=== PATIENT | male | born 1930 | race Caucasian/White ===

== ENCOUNTER 2016-08-26 06:45 | Emergency (ER) | payer MEDICARE ==
[~2016-08-26] VITALS: Ht 167.6 cm; Wt 85.6 kg
[~2016-08-26 06:45] MED LIST: ALBUAER3 INH; ALPR0.25 PO; ASPI1TAB69 PO; CLIN1CAP6 PO; FURO20TA PO; IPRASOL INH; LISI-515 PO; METO100T PO; TAZT240C PO; TRAM50TA PO; ZYRT10CA PO
[2016-08-26 06:53] VITALS: PULSE 98; RESP 18; TEMP 97.6
[2016-08-26 06:57] VITALS: BP 135/92; PULSE 98; RESP 20; TEMP 97.6; O2SAT 95
[2016-08-26 07:05] VITALS: RESP 20; O2SAT 95
[2016-08-26] MEDS ORDERED: methylPREDNISolone SOD SUCC 125 MG/2 ML VIAL IVP ONE (07:15)
[2016-08-26] MEDS ORDERED: CODEINE SULFATE 30 MG TAB PO ONE (07:15)
[2016-08-26] MEDS ORDERED: FUROSEMIDE 100 MG/10 ML VIAL IVP ONE (07:15)
[2016-08-26] MEDS ORDERED: SODIUM CHLORIDE 0.9% FLUSH 5 ML FLUSH IVF PRN (07:15)
[2016-08-26] MEDS: RESP: ALBUTEROL 2.5 MG/IPRATROPIUM 0.5 MG NEB (SCH) INH ×2 (07:19→07:23)
--- NOTE | 2016-08-26 07:25 | PD ---
HPI Chief Complaint: Respiratory Symptoms Time Seen by Provider: 07:03 Travel History International Travel<30 days: No Contact w/Intl Traveler<30days: No Traveled to known affect area: No History of Present Illness HPI This is an 86-year-old male who presents to the emergency department with increasing shortness of breath and productive cough as been going on for 1 week , constant, worsening today causing him not to be able to sleep because his cough is so bad. He has had some subjective fevers and chills. He's had brown and green sputum production. Patient was seen by Dr. birmingham 5 days ago and was prescribed prednisone, Levaquin, nebulizers and hydrocodone cough syrup. He says this morning he felt worse. He does acknowledge that he has missed several physical Lasix doses and he noticed that his legs are swollen. He has a history of congestive heart failure, COPD and atrial fibrillation. He is supposed to take 80 mg Lasix a day. PFSH Past Medical History Hx Anticoagulant Therapy: Yes (81mg asa) Arthritis: Yes Asthma: No Atrial Fibrillation: Yes Autoimmune Disease: No Anxiety: Yes Heart Rhythm Problems: Yes (ATRIAL FIBRILATION) Cancer: No Cardiovascular Problems: Yes (htn on meds) High Cholesterol: Yes Chemotherapy: Yes (COLON CA) Chest Pain: Yes Congestive Heart Failure: Yes COPD: Yes Cerebrovascular Accident: No Diabetes: No Diminished Hearing: Yes Endocrine: No Gastrointestinal Disorders: No GERD: Yes Glaucoma: No Genitourinary: Yes (PROSTATE) Headaches: No Hepatitis: No Hiatal Hernia: No Hypertension: Yes Immune Disorder: No Implanted Vascular Access Dvce: No Kidney Stones: No Musculoskeletal: Yes (ARTHRITIS) Neurologic: No Psychiatric: No Reproductive: No Respiratory: Yes (copd) Immunizations Current: Yes Migraines: No Pneumonia: Yes Radiation Therapy: No Renal Failure: No Seizures: No Sleep Apnea: No Thyroid Disease: No Past Surgical History Abdominal Surgery: Yes (UMBILIC HERNIA 1997, COLON RESECTION 08/04/14) AICD: No Appendectomy: Yes (MAR 2014) Arteriovenous Shunt: No Eye Surgery: Yes (cataracts) Genitourinary Surgery: Yes (COLD THERAPY ON BLADDER, TURP 08/06) Insulin Pump: No Neurologic Surgery: No Pacemaker: No Tonsillectomy: Yes Other Surgery: Yes (TURP) Social History Alcohol Use: No Tobacco Use: No (former) Substance Use: No Allergies-Medications (Allergen,Severity, Reaction): Coded Allergies: No Known Allergies (Verified , 08/26/16) Reported Meds & Prescriptions Reported Meds & Active Scripts Active Furosemide 20 Mg Tab 40 Mg PO BID Taztia Xt (Diltiazem ER 24 HR) 240 Mg Caper 240 Mg PO DAILY Reported Prednisone 5 Mg Tab Unknown Dose PO DIRECTED Levaquin (Levofloxacin) 500 Mg Tab 500 Mg PO DAILY Lisinopril-Hctz 20-12.5 Mg Tab 1 Tab PO DAILY Duoneb (Ipratropium-Albuterol Neb) 0.5-2.5 Mg/3 Ml Neb 1 Nebule INH BID Proair Hfa 8.5 GM Inh (Albuterol Sulfate) 90 Mcg/Act Aer 1 Puff INH Q4H PRN 108 mcg/actuation Aspirin 81 Mg Tabdr 81 Mg PO DAILY Zyrtec Allergy (Cetirizine HCl) 10 Mg Cap 10 Mg PO DAILY Metoprolol Tartrate 100 Mg Tab 100 Mg PO DAILY Review of Systems Except as stated in HPI: all other systems reviewed are Neg Physical Exam Narrative GENERAL:Well appearing, no acute distress SKIN: Warm and dry. HEAD: Atraumatic. Normocephalic. EYES: Pupils equal and round. No injection or drainage. ENT: Moist mucous membranes NECK: Trachea midline. CARDIOVASCULAR: Regular rate and rhythm. No murmur appreciated. 2+ bilateral lower extremity pitting edema. RESPIRATORY: Moderate expiratory wheezing, no tachypnea or accessory muscle use , crackles in the bilateral bases GASTROINTESTINAL: Abdomen soft, non-tender, nondistended. MUSCULOSKELETAL: No obvious deformities. NEUROLOGICAL: Awake and alert. No obvious cranial nerve deficits. Moving all extremities. PSYCHIATRIC: Appropriate mood and affect; insight and judgment normal. Data Data Last Documented VS Vital Signs Date Time Temp Pulse Resp B/P Pulse Ox O2 Delivery O2 Flow Rate FiO2 08/26/16 08:10 75 18 106/72 94 Room Air 08/26/16 06:57 97.6 Orders Complete Blood Count With Diff (08/26/16 07:13) Comprehensive Metabolic Panel (08/26/16 07:13) B-Type Natriuretic Peptide (08/26/16 07:13) Troponin I (08/26/16 07:13) Iv Access Insert/Monitor (08/26/16 07:13) Ecg Monitoring (08/26/16 07:13) Oximetry (08/26/16 07:13) Oxygen Administration (08/26/16 07:13) Chest, Single Ap (08/26/16 07:13) Sodium Chloride 0.9% Flush (Ns Flush) (08/26/16 07:15) Furosemide Inj (Lasix Inj) (08/26/16 07:15) Methylprednisolone So Succ Inj (Solumedr (08/26/16 07:15) Albuterol-Ipratropium Neb (Duoneb Neb) (08/26/16 07:15) Codeine Sulfate (Codeine Sulfate) (08/26/16 07:15) Furosemide Inj (Lasix Inj) (08/26/16 07:45) Labs Laboratory Tests Test 08/26/16 07:20 White Blood Count 13.5 TH/MM3 Red Blood Count 5.89 MIL/MM3 Hemoglobin 14.4 GM/DL Hematocrit 43.7 % Mean Corpuscular Volume 74.1 FL Mean Corpuscular Hemoglobin 24.5 PG Mean Corpuscular Hemoglobin 33.1 % Concent Red Cell Distribution Width 15.3 % Platelet Count 240 TH/MM3 Mean Platelet Volume 7.3 FL Neutrophils (%) (Auto) % Lymphocytes (%) (Auto) % Monocytes (%) (Auto) % Eosinophils (%) (Auto) % Basophils (%) (Auto) % Neutrophils # (Auto) TH/MM3 Lymphocytes # (Auto) TH/MM3 Monocytes # (Auto) TH/MM3 Eosinophils # (Auto) TH/MM3 Basophils # (Auto) TH/MM3 CBC Comment AUTO DIFF Differential Total Cells 100 Counted Neutrophils % (Manual) 88 % Band Neutrophils % 3 % Lymphocytes % 4 % Monocytes % 5 % Neutrophils # (Manual) 12.3 TH/MM3 Differential Comment FINAL DIFF MANUAL Platelet Estimate NORMAL Platelet Morphology Comment NORMAL Red Cell Morphology Comment NORMAL Sodium Level 133 MEQ/L Potassium Level 4.6 MEQ/L Chloride Level 94 MEQ/L Carbon Dioxide Level 29.8 MEQ/L Anion Gap 9 MEQ/L Blood Urea Nitrogen 31 MG/DL Creatinine 1.30 MG/DL Estimat Glomerular Filtration 52 ML/MIN Rate Random Glucose 127 MG/DL Calcium Level 9.2 MG/DL Total Bilirubin 1.0 MG/DL Aspartate Amino Transf 42 U/L (AST/SGOT) Alanine Aminotransferase 36 U/L (ALT/SGPT) Alkaline Phosphatase 75 U/L Troponin I LESS THAN 0.02 NG/ML B-Type Natriuretic Peptide 61 PG/ML Total Protein 6.4 GM/DL Albumin 2.8 GM/DL MDM Medical Decision Making Medical Screen Exam Complete: Yes Emergency Medical Condition: Yes Interpretation(s) Afebrile, no tachycardia, normotensive Leukocytosis with left shift Mild hyponatremia Troponin is 0.02 BNP is normal Chest x-ray demonstrates atelectasis and stable apical mass Differential Diagnosis COPD exacerbation, pneumonia, congestive heart failure, pulmonary embolism, viral syndrome Narrative Course This is an 86-year-old male who has a history of COPD who presents to the emergency department with increasing shortness of breath and sputum production over the past week and a half. He was placed in a monitor and an IV was established. Labs were obtained which were reassuring. Chest x-ray demonstrates no pneumonia. Patient's oxygen saturation is anywhere from 91 and 95%. He feels much better after bronchodilator treatments, IV methylprednisolone and IV Lasix. I suspect this patient COPD is just advancing and worsening. He has no appointment with Dr. birmingham on Friday. Plan for prednisone and Hycodan cough syrup until then. I don't think he requires admission at this time in the absence of hypoxia but I did instruct him to return to the emergency department if his symptoms worsen. He should continue his Levaquin as prescribed. Diagnosis Primary Impression: COPD exacerbation Patient Instructions: General Instructions Additional Instructions: If you develop severe shortness of breath, chest pain, or difficulty breathing return to the emergency department. Use albuterol every 4 hours for the next 2 days. Then use as needed for wheezing. Complete your course of steroids. Complete your course of antibiotics. Follow up with your primary care physician in 2-3 days if your symptoms have not improved. Med/Other Pt SpecificInfo: Prescription(s) given Scripts Hydrocodone W/ Homatropine (Hydrocodone/Homatropine 5-1.5 mg/5Ml)1 Syp Syp5 Ml PO Q4-6H PRN (COUGH) #100 ML Prov:Rossana Liz MD 08/26/16 Prednisone 20 Mg Tab40 Mg PO DAILY 4 Days Prov:Rossana Liz MD 08/26/16 Disposition: 01 DISCHARGE HOME Condition: Stable Rossana Liz MD Aug 26, 2016 07:25
[2016-08-26 07:30] LABS: HEMATOCRIT 43.7 % (39.0-51.0); MEAN CELL VOLUME 74.1 FL (80.0-100.0); MEAN CORPUSCULAR HEMOGLOBIN 24.5 PG (27.0-34.0); MEAN CORPUSCULAR HGB CONC 33.1 % (32.0-36.0); PLATELET COUNT 240 TH/MM3 (150-450); RED BLOOD COUNT 5.89 MIL/MM3 (4.50-5.90); RED CELL DISTRIBUTION WIDTH 15.3 % (11.6-17.2); WHITE BLOOD COUNT 13.5 TH/MM3 (4.0-11.0)
[2016-08-26 07:33] LABS: HEMO FLAGS AUTO DIFF
[2016-08-26] MEDS ORDERED: LISI20TA PO (07:35)
[2016-08-26] MEDS ORDERED: LEVA500T PO (07:35)
[2016-08-26] MEDS ORDERED: PRED5TAB PO (07:36)
[2016-08-26 07:44] LABS: CHLORIDE 94 MEQ/L (98-107); POTASSIUM 4.6 MEQ/L (3.5-5.1); SODIUM (NA) 133 MEQ/L (136-145)
[2016-08-26] MEDS ORDERED: FUROSEMIDE 40 MG/4 ML VIAL IV PUSH ONE (07:45)
[2016-08-26 07:47] LABS: ANION GAP 9 MEQ/L (5-15); BICARBONATE 29.8 MEQ/L (21.0-32.0)
[2016-08-26 07:48] LABS: BANDS 3 % (0-6); BLOOD UREA NITROGEN 31 MG/DL (7-18); NEUTROPHIL # MANUAL DIFF 12.3 TH/MM3 (1.8-7.7); POLYS (SEG NEUTROPHILS) 88 % (16-70); WBC DIFF SAMPLE 100
[2016-08-26 07:49] LABS: PLATELET ESTIMATE SMEAR NORMAL (NORMAL); PLATELET MORPHOLOGY NORMAL (NORMAL); SCAN/DIFF FINAL DIFF MANUAL
[2016-08-26 07:51] LABS: ALT (GPT) 36 U/L (12-78); AST (GOT) 42 U/L (15-37); GLOMERULAR FILTRATION RATE 52 ML/MIN (>89)
[2016-08-26 07:53] LABS: ALKALINE PHOSPHATASE 75 U/L (45-117)
--- NOTE | 2016-08-26 08:00 | RADHPO ---
EXAM DATE/TIME: 08/26/2016 07:51 [facility] COMPARISON: CHEST SINGLE AP, June 13, 2016, 17:35. INDICATIONS : Short of breath, cough, chest congestion. MEDICAL HISTORY : Congestive heart failure. Hypertension Chronic obstructive pulmonary disease. SURGICAL HISTORY : None. ENCOUNTER: Initial ACUITY: 1 week PAIN SCORE: 0/10 LOCATION: Bilateral chest FINDINGS: A single view of the chest demonstrates minimal bibasilar subsegmental atelectasis. Left apical mass again seen and unchanged. Heart mildly enlarged. The cardiomediastinal contours are unremarkable. O sseous structures are intact. CONCLUSION: 1. Minimal bibasilar subsegmental atelectasis. 2. Stable left apical mass. Bhavin Pinon MD on August 26, 2016 at 7:55 Board Certified Radiologist. This report was verified electronically.
[2016-08-26 08:10] VITALS: BP 106/72; PULSE 75; RESP 18; O2SAT 94
[2016-08-26] MEDS ORDERED: PRED20 PO (08:25)
[2016-08-26] MEDS ORDERED: HYDR5SYP10 PO (08:25)
[2016-08-30] MEDS ORDERED: TEMA15CA PO (12:43)
[2016-10-10] MEDS ORDERED: FURO1TAB62 PO (14:40)
[2016-10-10] MEDS ORDERED: METO50TA PO (14:41)
[2016-10-10] MEDS ORDERED: TAZT240C PO (14:46)
[2016-10-17] MEDS ORDERED: FLUT50SP EACH NARE (10:43)
[2016-10-17] MEDS ORDERED: TRAM50TA PO (10:43)
[2016-10-23] MEDS ORDERED: ALPR0.25 PO (11:49)
[2016-11-07] MEDS ORDERED: TRAM50TA PO (11:53)
[2016-12-12] MEDS ORDERED: ALPR0.25 PO (15:57)
[2016-12-12] MEDS ORDERED: METO-426 PO (15:57)
[2016-12-12] MEDS ORDERED: ALPR0.5T3 PO (16:17)
== END 2016-08-26 08:48 | disposition home or self-care (01) ==
LOC: PHED 06:45
DX: J44.1 Chronic obstructive pulmonary disease with (acute) exacerbation (principal); I48.91 Unspecified atrial fibrillation; I50.9 Heart failure, unspecified; I10 Essential (primary) hypertension; Z87.891 Personal history of nicotine dependence
CPT/HCPCS: 71010; 80053; 83880; 84484; 85007; 85027; 94664; 96374; 96375; 99285; J1940; J2930

== ENCOUNTER 2016-08-27 11:53 | Inpatient (IN) | payer MEDICARE ==
[~2016-08-27] VITALS: Ht 167.6 cm; Wt 81.5 kg
[2016-08-27] VITALS (8 sets, daily range): BP systolic 96–116; BP diastolic 62–75; PULSE 86–94; RESP 14–19; TEMP 96–97.6; O2SAT 91–94
[~2016-08-27 11:53] MED LIST changes: -ALPR0.25 PO; -CLIN1CAP6 PO; +HYDR5SYP10 PO; +LEVA500T PO; -LISI-515 PO; +LISI20TA PO; +PRED20 PO; +PRED5TAB PO; -TRAM50TA PO
--- NOTE | 2016-08-27 12:44 | PD ---
HPI Chief Complaint: Respiratory Symptoms Time Seen by Provider: 12:24 Travel History International Travel<30 days: No Contact w/Intl Traveler<30days: No Traveled to known affect area: No History of Present Illness HPI This is an 86 year old male who has a history of COPD and congestive heart failure who presents to the emergency department with a week and a half of shortness of breath, productive cough with yellow sputum, constant, moderate severity, worse with exertion, improved with rest. He denies any fevers or chills. He's had a lot of chest tightness. The cough is keeping him up at night. Patient was seen by Dr. birmingham 6 days ago in clinic who prescribed him prednisone, Levaquin and Hycodan cough syrup. The patient has been taking the prednisone and the Levaquin but wasn't feeling any better. Yesterday I saw the patient in the emergency department. He had a workup with a normal chest x- ray. He felt better after bronchodilator treatments and IV steroids. I reassured him prednisone and Levaquin. He says he had a bad night last night, the cough medicine isn't helping him and his chest still feels tight and he can' t stop coughing. PFSH Past Medical History Hx Anticoagulant Therapy: Yes (81mg asa) Arthritis: Yes Asthma: No Atrial Fibrillation: Yes Autoimmune Disease: No Anxiety: Yes Heart Rhythm Problems: Yes (ATRIAL FIBRILATION) Cancer: No Cardiovascular Problems: Yes (htn on meds) High Cholesterol: Yes Chemotherapy: Yes (COLON CA) Chest Pain: Yes Congestive Heart Failure: Yes COPD: Yes Cerebrovascular Accident: No Diabetes: No Diminished Hearing: Yes Endocrine: No Gastrointestinal Disorders: No GERD: Yes Glaucoma: No Genitourinary: Yes (PROSTATE) Headaches: No Hepatitis: No Hiatal Hernia: No Hypertension: Yes Immune Disorder: No Implanted Vascular Access Dvce: No Kidney Stones: No Musculoskeletal: Yes (ARTHRITIS) Neurologic: No Psychiatric: No Reproductive: No Respiratory: Yes (COPD) Immunizations Current: Yes Migraines: No Pneumonia: Yes Radiation Therapy: No Renal Failure: No Seizures: No Sleep Apnea: No Thyroid Disease: No Past Surgical History Abdominal Surgery: Yes (UMBILIC HERNIA 1997, COLON RESECTION 08/04/14) AICD: No Appendectomy: Yes (MAR 2014) Arteriovenous Shunt: No Eye Surgery: Yes (cataracts) Genitourinary Surgery: Yes (COLD THERAPY ON BLADDER, TURP 08/06) Insulin Pump: No Neurologic Surgery: No Pacemaker: No Tonsillectomy: Yes Other Surgery: Yes (TURP) Social History Alcohol Use: No Tobacco Use: No (former) Substance Use: No Allergies-Medications (Allergen,Severity, Reaction): Coded Allergies: No Known Allergies (Verified , 08/27/16) Reported Meds & Prescriptions Reported Meds & Active Scripts Active Hydrocodone/Homatropine 5-1.5 mg/5Ml (Hydrocodone W/ Homatropine) 1 Syp Syp 5 Ml PO Q4-6H PRN Prednisone 20 Mg Tab 40 Mg PO DAILY 4 Days Furosemide 20 Mg Tab 40 Mg PO BID Taztia Xt (Diltiazem ER 24 HR) 240 Mg Caper 240 Mg PO DAILY Reported Prednisone 5 Mg Tab Unknown Dose PO DIRECTED Levaquin (Levofloxacin) 500 Mg Tab 500 Mg PO DAILY Lisinopril-Hctz 20-12.5 Mg Tab 1 Tab PO DAILY Duoneb (Ipratropium-Albuterol Neb) 0.5-2.5 Mg/3 Ml Neb 1 Nebule INH BID Proair Hfa 8.5 GM Inh (Albuterol Sulfate) 90 Mcg/Act Aer 1 Puff INH Q4H PRN 108 mcg/actuation Aspirin 81 Mg Tabdr 81 Mg PO DAILY Zyrtec Allergy (Cetirizine HCl) 10 Mg Cap 10 Mg PO DAILY Metoprolol Tartrate 100 Mg Tab 100 Mg PO DAILY Review of Systems Except as stated in HPI: all other systems reviewed are Neg Physical Exam Narrative GENERAL:Well appearing, no acute distress SKIN: Warm and dry. HEAD: Atraumatic. Normocephalic. EYES: Pupils equal and round. No injection or drainage. ENT: Moist mucous membranes NECK: Trachea midline. CARDIOVASCULAR: Regular rate and rhythm. No murmur appreciated. 2+ bilateral lower extremity pitting edema. RESPIRATORY: Diffuse wheezing with no accessory muscle use. Some tachypnea. GASTROINTESTINAL: Abdomen soft, non-tender, nondistended. MUSCULOSKELETAL: No obvious deformities. NEUROLOGICAL: Awake and alert. No obvious cranial nerve deficits. Moving all extremities. PSYCHIATRIC: Appropriate mood and affect; insight and judgment normal. Data Data Last Documented VS Vital Signs Date Time Temp Pulse Resp B/P Pulse Ox O2 Delivery O2 Flow Rate FiO2 08/27/16 13:22 94 21 08/27/16 12:39 83 24 Room Air 08/27/16 12:15 97.6 116/71 Orders Albuterol-Ipratropium Neb (Duoneb Neb) (08/27/16 12:45) Complete Blood Count With Diff (08/27/16 12:45) Basic Metabolic Panel (Bmp) (08/27/16 12:45) ^ Insert Iv (08/27/16 12:45) Admit Order (Ed Use Only) (08/27/16 13:54) Labs Laboratory Tests Test 08/27/16 12:55 White Blood Count 16.4 TH/MM3 Red Blood Count 5.77 MIL/MM3 Hemoglobin 14.2 GM/DL Hematocrit 43.2 % Mean Corpuscular Volume 74.8 FL Mean Corpuscular Hemoglobin 24.6 PG Mean Corpuscular Hemoglobin 32.9 % Concent Red Cell Distribution Width 15.3 % Platelet Count 255 TH/MM3 Mean Platelet Volume 7.3 FL Neutrophils (%) (Auto) 88.2 % Lymphocytes (%) (Auto) 2.9 % Monocytes (%) (Auto) 5.3 % Eosinophils (%) (Auto) 0.1 % Basophils (%) (Auto) 3.5 % Neutrophils # (Auto) 14.4 TH/MM3 Lymphocytes # (Auto) 0.5 TH/MM3 Monocytes # (Auto) 0.9 TH/MM3 Eosinophils # (Auto) 0.0 TH/MM3 Basophils # (Auto) 0.6 TH/MM3 CBC Comment AUTO DIFF Differential Comment AUTO DIFF CONFIRMED Sodium Level 134 MEQ/L Potassium Level 3.9 MEQ/L Chloride Level 93 MEQ/L Carbon Dioxide Level 30.9 MEQ/L Anion Gap 10 MEQ/L Blood Urea Nitrogen 39 MG/DL Creatinine 1.30 MG/DL Estimat Glomerular Filtration 52 ML/MIN Rate Random Glucose 122 MG/DL Calcium Level 9.4 MG/DL MDM Medical Decision Making Medical Screen Exam Complete: Yes Emergency Medical Condition: Yes Medical Record Reviewed: Yes (patient was seen yesterday in the emergency department, had chest x-ray which was reassuring, BNP which was normal and labs which demonstrated a mild leukocytosis) Interpretation(s) Leukocytosis increased from yesterday Labs otherwise reassuring BNP was normal yesterday Chest x-ray with no pneumonia from yesterday, left apical mass seen Differential Diagnosis COPD exacerbation, pneumonia, bronchitis, viral syndrome, influenza Narrative Course This is an 86-year-old male who has a history of COPD and congestive heart failure who presents to the emergency department with persistent and worsening shortness of breath and cough in the setting of a COPD exacerbation. He was seen by Dr. birmingham almost a week ago and started on prednisone and Levaquin. Despite 6 days of therapy he is not improving. I saw him yesterday in the emergency department and despite this he returns today because his symptoms are not improving. I think the patient warrants observation in the hospital for serial bronchodilator treatments as he is failing outpatient therapy. I don't think any further diagnostics are warranted at this time. Diagnosis Primary Impression: COPD exacerbation Admitting Information Admitting Physician Requests: Admit Rossana Liz MD Aug 27, 2016 12:44
[2016-08-27] MEDS: RESP: ALBUTEROL 2.5 MG/IPRATROPIUM 0.5 MG NEB (SCH) INH ×3 (12:55→19:55)
[2016-08-27 13:04] LABS: AUTOMATED NEUTROPHIL # 14.4 TH/MM3 (1.8-7.7); BASOPHIL # 0.6 TH/MM3 (0-0.2); BASOPHIL % 3.5 % (0.0-2.0); EOSINOPHIL % 0.1 % (0.0-4.0); HEMATOCRIT 43.2 % (39.0-51.0); LYMPH % 2.9 % (9.0-44.0); LYMPHOCYTE # 0.5 TH/MM3 (1.0-4.8); MEAN CELL VOLUME 74.8 FL (80.0-100.0); MEAN CORPUSCULAR HEMOGLOBIN 24.6 PG (27.0-34.0); MEAN CORPUSCULAR HGB CONC 32.9 % (32.0-36.0); MONO % 5.3 % (0.0-8.0); NEUT % 88.2 % (16.0-70.0); PLATELET COUNT 255 TH/MM3 (150-450); RED BLOOD COUNT 5.77 MIL/MM3 (4.50-5.90); RED CELL DISTRIBUTION WIDTH 15.3 % (11.6-17.2); WHITE BLOOD COUNT 16.4 TH/MM3 (4.0-11.0)
[2016-08-27 13:09] LABS: HEMO FLAGS AUTO DIFF
[2016-08-27 13:16] LABS: POTASSIUM 3.9 MEQ/L (3.5-5.1)
[2016-08-27 13:20] LABS: BICARBONATE 30.9 MEQ/L (21.0-32.0)
[2016-08-27 13:35] LABS: SCAN/DIFF AUTO DIFF CONFIRMED
--- NOTE | 2016-08-27 15:13 | HHI.HP ---
cc: Meagan Martin MD [facility]ician Meagan Martin MD Admission Diagnosis copd exacerbation, failed outpatient therapy Diagnoses: Chief Complaint: Short of breath Travel History International Travel<30 Days: No Contact w/Intl Traveler <30 Da: No Traveled to Known Affected Are: No Sepsis Criteria SIRS Criteria (2 or more): Heart rate over 90, RR > 20 or PaCO2 < 32, WBC > 11854, < 4000 or > 10% bands Sepsis Criteria (SIRS+source): Infect source susp/known History of Present Illness Patient is a 86-year-old gentleman with a history of congestive heart failure and COPD. Patient has been admitted to the hospital with increasing shortness of breath and work of breathing as well as orthopnea and increased lower extremity edema. He did see his hand candle molder Dr. birmingham several days ago was given prednisone, cough syrup and Levaquin which he took. He did come to the emergency room yesterday and was discharged on antitussive and outcomes again today with increasing work of breathing and central chest tightness with breathing and orthopnea. Patient's legs which are usually swollen are much bigger than usual. The patient does have congestive heart failure and follows up with his gang drill operator Dr. Grewal as well as his hand candle molder Dr. birmingham for his COPD. He no longer smokes. Patient overall has felt better with nebulizers here. He is not hypoxemic with estimate his amount of edema and increased work of breathing on exam with accessory muscle use. Review of Systems Constitutional: DENIES: Diaphoretic episodes, Fatigue, Fever, Weight gain, Weight loss, Chills, Dizziness, Change in appetite, Night Sweats Endocrine: DENIES: Heat/cold intolerance, Polydipsia, Polyuria, Polyphagia Eyes: DENIES: Blurred vision, Diplopia, Eye inflammation, Eye pain, Vision loss , Photosensitivity, Double Vision Ears, nose, mouth, throat: DENIES: Tinnitus, Hearing loss, Vertigo, Nasal discharge, Oral lesions, Throat pain, Hoarseness, Ear Pain, Running Nose, Epistaxis, Sinus Pain, Toothache, Odynophagia Respiratory: COMPLAINS OF: Cough, Sputum production, Shortness of breath, DENIES: Apneas, Snoring, Wheezing, Hemoptysis Cardiovascular: COMPLAINS OF: Chest pain, Dyspnea on Exertion, Lower Extremity Edema, Orthopnea Gastrointestinal: DENIES: Abdominal pain, Black stools, Bloody stools, Constipation, Diarrhea, Nausea, Vomiting, Difficulty Swallowing, Anorexia Genitourinary: DENIES: Sexual dysfunction, Urinary frequency, Urinary incontinence, Urgency, Hematuria, Dysuria, Nocturia, Penile Discharge, Testicular Pain, Testicular Swelling Musculoskeletal: DENIES: Joint pain, Muscle aches, Stiffness, Joint Swelling, Back pain, Neck pain Hematologic/lymphatic: DENIES: Bruising, Lymphadenopathy Neurologic: DENIES: Abnormal gait, Headache, Localized weakness, Paresthesias, Seizures, Speech Problems, Tremor, Poor Balance Psychiatric: DENIES: Anxiety, Confusion, Mood changes, Depression, Hallucinations, Agitation, Suicidal Ideation, Homicidal Ideation, Delusions Past Family Social History Past Medical History COPD Atrial fibrillation Past Surgical History Colon resection umbilical hernia repair TURP Cataracts Reported Medications Reviewed in the medical record, recently started on steroids and antibiotics per his hand candle molder Allergies: Coded Allergies: No Known Allergies (Verified , 08/27/16) Active Ordered Medications Reviewed in the medical record Family History Family history of hypertension Social History No current tobacco or alcohol, lives with his spouse Physical Exam Vital Signs Vital Signs Date Time Temp Pulse Resp B/P Pulse Ox O2 Delivery O2 Flow Rate FiO2 08/27/16 15:03 86 19 96/62 93 Room Air 08/27/16 13:22 94 21 08/27/16 12:39 83 24 94 Room Air 08/27/16 12:15 97.6 94 14 116/71 94 Physical Exam GENERAL: This is a well-nourished, well-developed patient, was coughing and short of breath with accessory muscle use SKIN: No rashes, ecchymoses or lesions. Cool and dry. HEAD: Atraumatic. Normocephalic. No temporal or scalp tenderness. EYES: Pupils equal round and reactive. Extraocular motions intact. No scleral icterus. No injection or drainage. ENT: Nose without bleeding, purulent drainage or septal hematoma. Throat without erythema, tonsillar hypertrophy or exudate. Uvula midline. Airway patent. NECK: Trachea midline. No JVD or lymphadenopathy. Supple, nontender, no meningeal signs. CARDIOVASCULAR: Regular rate and rhythm without murmurs, gallops, or rubs. RESPIRATORY: Decreased air flow bilaterally with scattered wheezes GASTROINTESTINAL: Abdomen soft, non-tender, nondistended. No hepato-splenomegaly , or palpable masses. No guarding. MUSCULOSKELETAL: Extremities without clubbing, cyanosis, but there is +3 edema in the lower extremities. No joint tenderness, effusion, or edema noted. No calf tenderness. Negative Homans sign bilaterally. NEUROLOGICAL: Awake and alert. Cranial nerves II through XII intact. Motor and sensory grossly within normal limits. Five out of 5 muscle strength in all muscle groups. Normal speech. Laboratory Laboratory Tests Test 08/27/16 12:55 White Blood Count 16.4 Red Blood Count 5.77 Hemoglobin 14.2 Hematocrit 43.2 Mean Corpuscular Volume 74.8 Mean Corpuscular Hemoglobin 24.6 Mean Corpuscular Hemoglobin 32.9 Concent Red Cell Distribution Width 15.3 Platelet Count 255 Mean Platelet Volume 7.3 Neutrophils (%) (Auto) 88.2 Lymphocytes (%) (Auto) 2.9 Monocytes (%) (Auto) 5.3 Eosinophils (%) (Auto) 0.1 Basophils (%) (Auto) 3.5 Neutrophils # (Auto) 14.4 Lymphocytes # (Auto) 0.5 Monocytes # (Auto) 0.9 Eosinophils # (Auto) 0.0 Basophils # (Auto) 0.6 CBC Comment AUTO DIFF Differential Comment AUTO DIFF CONFIRMED Sodium Level 134 Potassium Level 3.9 Chloride Level 93 Carbon Dioxide Level 30.9 Anion Gap 10 Blood Urea Nitrogen 39 Creatinine 1.30 Estimat Glomerular Filtration 52 Rate Random Glucose 122 Calcium Level 9.4 Result Diagram: 08/27/16 1255 08/27/16 1255 Imaging Chest x-ray 08/26 On my review so some minimal vascular congestion and a apical mass Assessment and Plan Problem List: (1) COPD exacerbation ICD Code: J44.1 Status: Acute Plan: He will need nebulizers, IV steroids, IV antibiotics and we will follow his progress. He does also have edematous component as well which may be related to heart failure. Sputum, influenza pending Patient has signs and symptoms of sepsis with increased heart rate, increased respiratory rate and leukocytosis with probable pneumonia (2) CHF (congestive heart failure) ICD Code: I50.9 Status: Acute Plan: Apparent mild exacerbation. Follow-up BNP Repeat echo pending Bumex twice a day (3) Atrial fibrillation ICD Code: I48.91 Status: Acute Plan: Currently weight controlled with metoprolol and diltiazem, continue aspirin Assessment and Plan Plan of care to be determined by Hospital course Code Status Full code Discussed Condition With Patient, PASHA M.Jessica, spouse Physician Certification 2 Midnight Certification Type: Admission for Inpatient Services Order for Inpatient Services The services are ordered in accordance with Medicare regulations or non- Medicare payer requirements, as applicable. In the case of services not specified as inpatient-only, they are appropriately provided as inpatient services in accordance with the 2-midnight benchmark. Estimated LOS (days): 3 3 days is the estimated time the patient will need to remain in the hospital, assuming treatment plan goals are met and no additional complications. Post-Hospital Plan: Mellisa Mas MD Aug 27, 2016 15:13
[2016-08-27] MEDS ORDERED: SODIUM CHLORIDE 0.9% FLUSH 5 ML FLUSH IVF PRN (15:15)
[2016-08-27] MEDS ORDERED: guaiFENesin/DEXTROMETHORPHAN 200 MG/20 MG/10 ML CUP PO PRN (15:30)
[2016-08-27] MEDS ORDERED: LEVOFLOXACIN 750 MG PREMIX INJ 150 ML IV SCH (16:00)
[2016-08-27] MEDS: methylPREDNISolone SOD SUCC 125 MG/2 ML VIAL IVP SCH ×2 (17:59→21:16)
[2016-08-27] MEDS: ENOXAPARIN SODIUM 40 MG/0.4 ML SYRINGE SQ SCH (17:59)
[2016-08-27] MEDS: BUMETANIDE INJ 1 MG/4 ML VIAL IV PUSH SCH (17:59)
[2016-08-27 18:03] LABS: BLOOD GAS BASE EXCESS 2.1 mmol/L (-2-2); BLOOD GAS CARBOXYHEMOGLOBIN 1.9 % (0-4); BLOOD GAS HCO3 25 mmol/L (22-26); BLOOD GAS METHEMOGLOBIN 1.1 % (0-2); BLOOD GAS O2 HGB SATURATION 93 % (90-100); BLOOD GAS OXYGEN CONTENT 18.5 Vol % (12.0-20.0); BLOOD GAS PCO2 34 mmHG (38-42); BLOOD GAS PO2 73 mmHG (61-120); BLOOD GAS TOTAL HGB 14.2 G/DL (12.0-16.0); CRITICAL VALUE NO; DRAW SITE LT RADIAL; FIO2 21 %; NUMBER OF ARTERIAL PUNCTURES 1; OXYGEN DEVICE ROOM AIR; STAT NO; TEMP CORR TO 98.6; ULNAR PULSE PRESENT
[2016-08-27] MEDS: guaiFENesin E.R. 600 MG TAB PO SCH (21:15)
[2016-08-27] MEDS: SODIUM CHLORIDE 0.9% FLUSH 5 ML FLUSH IVF SCH (21:15)
[2016-08-27] MEDS: RESP: ALBUTEROL 2.5 MG/3 ML NEB (PRN) INH (23:11)
[2016-08-28] VITALS (7 sets, daily range): BP systolic 104–130; BP diastolic 67–94; PULSE 82–125; RESP 18–21; TEMP 95.7–98.8; O2SAT 92–96
[2016-08-28] MEDS: methylPREDNISolone SOD SUCC 125 MG/2 ML VIAL IVP SCH ×4 (04:09→21:05)
[2016-08-28] MEDS: RESP: ALBUTEROL 2.5 MG/3 ML NEB (PRN) INH ×2 (04:27→22:56)
[2016-08-28 05:46] LABS: AUTOMATED NEUTROPHIL # 12.5 TH/MM3 (1.8-7.7); BASOPHIL % 0.3 % (0.0-2.0); HEMATOCRIT 44.2 % (39.0-51.0); LYMPH % 1.9 % (9.0-44.0); LYMPHOCYTE # 0.2 TH/MM3 (1.0-4.8); MEAN CORPUSCULAR HEMOGLOBIN 24.5 PG (27.0-34.0); MEAN CORPUSCULAR HGB CONC 32.2 % (32.0-36.0); MONO % 2.6 % (0.0-8.0); NEUT % 95.2 % (16.0-70.0); PLATELET COUNT 238 TH/MM3 (150-450); RED BLOOD COUNT 5.82 MIL/MM3 (4.50-5.90); RED CELL DISTRIBUTION WIDTH 15.8 % (11.6-17.2)
[2016-08-28 05:53] LABS: HEMO FLAGS AUTO DIFF; POTASSIUM 3.7 MEQ/L (3.5-5.1)
[2016-08-28 06:08] LABS: BICARBONATE 27.9 MEQ/L (21.0-32.0)
[2016-08-28 07:20] LABS: SCAN/DIFF AUTO DIFF CONFIRMED
[2016-08-28] MEDS: RESP: ALBUTEROL 2.5 MG/IPRATROPIUM 0.5 MG NEB (SCH) INH ×3 (07:29→19:17)
--- NOTE | 2016-08-28 08:21 | RADHPO ---
EXAM DATE/TIME: 08/28/2016 06:37 [place] COMPARISON: CHEST SINGLE AP, April 07, 2013, 13:14. CT PULMONARY ANGIOGRAM, April 18, 2013, 17:14. CHEST PA & LAT, March 10, 2015, 15:44. INDICATIONS : Shortness of breath. MEDICAL HISTORY : Chronic obstructive pulmonary disease. Carcinoma, colon. Congestive heart failure. Hypertension. Left upper lung tumor. SURGICAL HISTORY : None. ENCOUNTER: Initial ACUITY: 1 day PAIN SCORE: 0/10 LOCATION: Bilateral chest FINDINGS: There is a stable left apical mass. The heart is stable. Bibasilar fibrotic scarring and/or discoid atelectasis is noted. No alveolar consolidation is noted. No pulmonary edema is noted. Degenerati ve changes and scoliosis of the thoracolumbar spine is noted. CONCLUSION: 1. Stable left apical mass. 2. bibasilar atelectasis and/or fibrotic scarring. 3. No acute focal pulmonary infiltrate or pulmonary vascular congestion. 4. Degenerative changes and scoliosis of the thoracolumbar spine. Estevan Resendez MD on August 28, 2016 at 7:09 Board Certified Radiologist. This report was verified electronically.
[2016-08-28] MEDS: DILTIAZEM-CD 240 MG CAP ER PO SCH (10:11)
[2016-08-28] MEDS: SODIUM CHLORIDE 0.9% FLUSH 5 ML FLUSH IVF SCH ×2 (10:11→21:05)
[2016-08-28] MEDS: BUMETANIDE INJ 1 MG/4 ML VIAL IV PUSH SCH ×2 (10:12→18:23)
[2016-08-28] MEDS: guaiFENesin E.R. 600 MG TAB PO SCH ×2 (10:13→21:05)
[2016-08-28] MEDS: ASPIRIN EC 81 MG TABEC PO SCH (10:13)
[2016-08-28] MEDS: METOPROLOL TARTRATE 100 MG TAB PO SCH (10:13)
[2016-08-28] MEDS ORDERED: ACETAMINOPHEN 500 MG CPLT PO ONE (10:15)
[2016-08-28] MEDS ORDERED: ACETAMINOPHEN 325 MG TAB PO PRN (10:15)
--- NOTE | 2016-08-28 10:37 | HHI.PR ---
Subjective Remarks Patient seen today in follow-up for COPD exacerbation. Complaining of chest discomfort with coughing. He did have some good diuresis overnight. Extremity edema is much better. Objective Vitals Vital Signs Date Time Temp Pulse Resp B/P Pulse Ox O2 Delivery O2 Flow Rate FiO2 08/28/16 07:32 92 Nasal Cannula 1.00 08/28/16 00:00 98.8 98 18 104/67 93 08/28/16 00:00 94 Nasal Cannula 1.00 08/27/16 23:23 94 Nasal Cannula 1.00 08/27/16 23:11 91 21 08/27/16 20:00 97.1 89 18 109/74 93 08/27/16 19:55 94 21 08/27/16 15:55 96.0 93 105/75 94 08/27/16 15:03 86 19 96/62 93 Room Air 08/27/16 13:22 94 21 08/27/16 12:39 83 24 94 Room Air 08/27/16 12:15 97.6 94 14 116/71 94 I/O 08/27/16 08/27/16 08/27/16 08/28/16 08/28/16 08/28/16 07:00 15:00 23:00 07:00 15:00 23:00 Intake Total 630 ml 180 ml Output Total 700 ml 450 ml Balance -70 ml -270 ml Intake Oral 480 ml 180 ml IV Total 150 ml Output Urine Total 700 ml 450 ml # Voids 1 # Bowel Movements 0 0 Result Diagram: 08/28/16 0507 08/28/16 0507 Imaging Last Impressions Chest X-Ray 08/28/16 0600 Signed Impressions: Service Date/Time: Sunday, August 28, 2016 06:37 - CONCLUSION: 1. Stable left apical mass. 2. bibasilar atelectasis and/or fibrotic scarring. 3. No acute focal pulmonary infiltrate or pulmonary vascular congestion. 4. Degenerative changes and scoliosis of the thoracolumbar spine. Estevan Resendez MD Objective Remarks GENERAL: This is a well-nourished, well-developed patient, in no apparent distress. CARDIOVASCULAR: Regular rate and rhythm without murmurs, gallops, or rubs. RESPIRATORY: Decreased breath sounds with scattered wheezes GASTROINTESTINAL: Abdomen soft, non-tender, nondistended. Normal active bowel sounds MUSCULOSKELETAL: Extremities without clubbing, cyanosis, there is +3 lower extremity edema NEURO: Alert & Oriented x4 to person, place, time, situation. Moves all ext x4 A/P Problem List: (1) COPD exacerbation ICD Code: J44.1 Status: Acute Plan: He will need nebulizers, IV steroids, IV antibiotics and we will follow his progress. He does also have edematous component as well which may be related to heart failure. Sputum, influenza pending Patient has signs and symptoms of sepsis with increased heart rate, increased respiratory rate and leukocytosis with probable pneumonia Pulm consult pending (2) CHF (congestive heart failure) ICD Code: I50.9 Status: Acute Plan: Apparent mild exacerbation. bnp 73 Repeat echo pending r/o right sided dysfunction/pulmonary arterial pressure Bumex twice a day cont bb, add acei (3) Atrial fibrillation ICD Code: I48.91 Status: Acute Plan: Currently weight controlled with metoprolol and diltiazem, continue aspirin Mellisa Pedraza MD Aug 28, 2016 10:36
[2016-08-28] MEDS: HYDROcodone 5 MG/HOMATROPINE 1.5 MG SYRUP 5 ML CUP PO PRN ×3 (11:36→23:10)
[2016-08-28] MEDS ORDERED: BISACODYL EC 5 MG TABEC PO PRN (16:00)
[2016-08-28] MEDS ORDERED: POLYETHYLENE GLYCOL 17 GM PKG PO PRN (16:00)
[2016-08-28] MEDS: ENOXAPARIN SODIUM 40 MG/0.4 ML SYRINGE SQ SCH (16:57)
--- NOTE | 2016-08-28 18:52 | MB ---
cc: Tony KIRKPATRICK DATE OF CONSULTATION: 08/28/2016 REASON FOR CONSULTATION: HISTORY Mr. Ibrahim is an 86-year-old white male whom I have known for about 5 years with moderate COPD. I saw him in the office on August 21, at which time he had been in the ER and was treated with Levaquin for suspected pneumonia. We also placed him on prednisone when he called and scheduled him to follow up to see how he was doing. At that point he was feeling better and I had him scheduled for a follow up this week, but he ended up in the emergency room over the weekend with increasing edema, cough, congestion, shortness of breath and just was not responding well as an outpatient. He was a former smoker, although he quit smoking back in the 80s. 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 It has never really changed radiographically. He has had a CT as recently as December of last year at which time the mass was stable. He also has coronary artery disease, aortic stenosis and atrial fibrillation. He has been followed by Dr. Grewal. Cardiovascular status had been stable but now he is developing marked increase in edema. He had an echocardiogram in November of last year which revealed normal systolic function, a thickened aortic valve with mild stenosis and no pulmonary hypertension. ADDITIONAL PAST MEDICAL HISTORY 1. Hypertension 2. Obesity 3. Documented inhalation allergies. 4. Chronic bronchitis 5. Colon malignancy treated by surgery in 2014. ALLERGIES None known. MEDICATIONS Reviewed in the EMR. SOCIAL HISTORY Smoking noted, quit long ago. No recent alcohol use. Single, . No unusual animal exposures. He is retired from [employer]. FAMILY HISTORY Father of heart disease. Mother of colon cancer, a brother of cancer also of the colon. He has three sons, apparently in good health. REVIEW OF SYSTEMS: Other than that noted above, he has had no chest paibn, no hemoptysis, no recent change in bowel habits. No fever. He is generally exhausted, fatigued, dyspnea. PHYSICAL EXAMINATION Obese white male, comfortable at rest, sitting up, eating his lunch. VITAL SIGNS: Afebrile, pulse is 80 irregular, blood pressure is 116/70, respirations 18, sat 93% room air. HEENT: Sclerae anicteric. Mucous membranes are moist. Neck veins are not distended. LUNGS: He has diffuse congestion with some scattered rales in both lungs. HEART: Irregular heart rhythm. Soft systolic murmur. No audible S3. EXTREMITIES: [id number] plus edema in both legs with no calf tenderness. LABORATORY DATA: White count is 16,000, hemoglobin is 14. Electrolytes were normal. X-RAYS: Chest x-ray, apical mass, chronic, some minimal basilar atelectasis. DISCUSSION Mr. Ibrahim presents with what appears to be predominately an exacerbation of his underlying COPD, despite outpatient management, increasing edema, suggesting either an element of cor pulmonale or CHF. He has been started on antibiotics, aerosolized bronchodilators, corticosteroids, those will be continued. Try to collect a sputum specimen. He will need to be diuresed significantly. Further diagnostic and/or therapeutic intervention will depend on his response and ongoing clinical course. R. MD JOYA Kelly/PAUL /4:33 PM /6:42 PM
[2016-08-29] VITALS: BP 123/82; PULSE 103; RESP 24; TEMP 96.8; O2SAT 94
[2016-08-29] MEDS: methylPREDNISolone SOD SUCC 125 MG/2 ML VIAL IVP SCH (03:35)
[2016-08-29] MEDS: RESP: ALBUTEROL 2.5 MG/3 ML NEB (PRN) INH (06:24)
[2016-08-29 08:02] VITALS: BP 131/87; PULSE 117; RESP 22; TEMP 96.3; O2SAT 91
--- NOTE | 2016-08-29 08:17 | HHI.PR ---
Subjective Remarks Mr. Ibrahim states that he wants to go home today. He states his breathing is much better. He states he has had chronic pedal edema since his colon cancer resection in 2015. He states he deem it gets better with leg elevation and wearing the DIEUDONNE hose. He states he does try to wear DIEUDONNE hose daily for at least 6 hours. Objective Vitals Vital Signs Date Time Temp Pulse Resp B/P Pulse Ox O2 Delivery O2 Flow Rate FiO2 08/29/16 08:02 96.3 117 22 131/87 91 08/29/16 00:01 94 Nasal Cannula 2.00 08/29/16 00:00 96.8 103 24 123/82 94 08/28/16 20:30 93 Nasal Cannula 2.00 08/28/16 20:00 97.4 96 21 109/85 93 08/28/16 19:17 93 Nasal Cannula 2.00 08/28/16 16:00 95.7 82 20 122/76 96 08/28/16 12:47 94 1.00 08/28/16 12:00 96.9 114 21 122/78 95 08/28/16 11:36 20 I/O 08/28/16 08/28/16 08/28/16 08/29/16 08/29/16 08/29/16 07:00 15:00 23:00 07:00 15:00 23:00 Intake Total 180 ml 600 ml 240 ml 480 ml Output Total 450 ml 450 ml 300 ml 700 ml Balance -270 ml 150 ml -60 ml -220 ml Intake Oral 180 ml 600 ml 240 ml 480 ml Output Urine Total 450 ml 450 ml 300 ml 700 ml # Voids 2 # Bowel Movements 0 0 0 0 Result Diagram: 08/28/16 0507 08/28/16 0507 Objective Remarks GENERAL: Well-nourished, well-developed patient. SKIN: Warm and dry. HEAD: Normocephalic. EYES: No scleral icterus. No injection or drainage. NECK: Supple, trachea midline. No JVD or lymphadenopathy. CARDIOVASCULAR: Regular rate and rhythm without murmurs, gallops, or rubs. RESPIRATORY: Breath sounds equal bilaterally and clear to auscultation without wheezes. No accessory muscle use on 2 L nasal cannula. GASTROINTESTINAL: Abdomen soft, non-tender, nondistended. EXTREMITIES: 1+ pitting pedal edema bilaterally to the mid calf. NEUROLOGICAL: Awake, alert, and oriented x 3. Non-focal. A/P Problem List: (1) COPD exacerbation ICD Code: J44.1 Status: Resolved (2) CHF (congestive heart failure) ICD Code: I50.9 Status: Acute (3) Atrial fibrillation ICD Code: I48.91 Status: Acute (4) Leg edema ICD Code: R60.0 Status: Chronic (5) YECENIA (acute kidney injury) ICD Code: N17.9 Status: Acute Assessment and Plan COPD exacerbation, failed outpatient treatment - greatly improved. No wheezing on exam. Will transition to by mouth prednisone. Continue bronchodilators. Oxygen walk test today. Discussed with Dr. Hunt.. CHF, probable cor pulmonale - with pedal edema - he has had chronic pedal edema since 2014 which responds to leg elevation and DIEUDONNE hose. Will DC diuresis as he had some mild acute kidney injury. Placed DIEUDONNE hose. Discussed with Dr. birmingham. 2-D echo pending. Acute kidney injury - hold Bumex, repeat BMP is pending today. History of colon Cancer, status post resection 2 2013 2014 Benign lung tumor left upper lobe BPH Atrial fibrillation- on ASA only - continue metoprolol and Cardizem. DVT prophylaxis with DIEUDONNE hose. Discharge Planning Possible discharge home today depending on renal function. Problem Qualifiers (1) CHF (congestive heart failure): (2) Atrial fibrillation: Qualified Code: I48.2 - Chronic atrial fibrillation (3) Leg edema: Qualified Code: R60.0 - Bilateral edema of lower extremity Lidia Hollins MD Aug 29, 2016 08:17
[2016-08-29] MEDS: METOPROLOL TARTRATE 100 MG TAB PO SCH (09:00)
[2016-08-29] MEDS ORDERED: predniSONE 20 MG TAB PO SCH (09:00)
[2016-08-29] MEDS: guaiFENesin E.R. 600 MG TAB PO SCH (09:00)
[2016-08-29] MEDS: ASPIRIN EC 81 MG TABEC PO SCH (09:00)
[2016-08-29] MEDS: DILTIAZEM-CD 240 MG CAP ER PO SCH (09:00)
[2016-08-29] MEDS: SODIUM CHLORIDE 0.9% FLUSH 5 ML FLUSH IVF SCH (09:01)
[2016-08-29 09:06] LABS: POTASSIUM 3.5 MEQ/L (3.5-5.1)
[2016-08-29] MEDS: RESP: ALBUTEROL 2.5 MG/IPRATROPIUM 0.5 MG NEB (SCH) INH (09:33)
[2016-08-29 09:35] VITALS: O2SAT 93
[2016-08-29 09:47] LABS: BICARBONATE 28.5 MEQ/L (21.0-32.0)
[2016-08-29] MEDS ORDERED: OXYGENTANK NAS.CANULA (10:46)
[2016-08-29] MEDS ORDERED: NEBULIZER1 MI1 (11:38)
[2016-08-29] MEDS ORDERED: PRED20 PO (11:38)
[2016-08-29] MEDS ORDERED: IPRASOL INH (11:38)
[2016-08-29] MEDS ORDERED: LEVA500T PO (11:38)
[2016-08-29] MEDS ORDERED: TIOT1AER2 INH (11:38)
[2016-08-29 12:00] VITALS: BP 140/87; PULSE 108; RESP 21; TEMP 95.7; O2SAT 95
--- NOTE | 2016-08-29 12:13 | HHI.DS ---
Discharge Summary Admission Date Aug 27, 2016 at 13:55 Discharge Date: Aug 29, 2016 Admitting Diagnosis copd exacerbation, failed outpatient therapy (1) COPD exacerbation ICD Code: J44.1 (2) CHF (congestive heart failure) ICD Code: I50.9 (3) Atrial fibrillation ICD Code: I48.91 (4) Leg edema ICD Code: R60.0 (5) YECENIA (acute kidney injury) ICD Code: N17.9 Procedures None Brief History - From Admission Patient is a 86-year-old gentleman with a history of congestive heart failure and COPD. Patient has been admitted to the hospital with increasing shortness of breath and work of breathing as well as orthopnea and increased lower extremity edema. He did see his radiological technician Dr. birmingham several days ago was given prednisone, cough syrup and Levaquin which he took. He did come to the emergency room the day prior to admission and was discharged on antitussive and outcomes again today with increasing work of breathing and central chest tightness with breathing and orthopnea. Patient's legs which are usually swollen are much bigger than usual. The patient does have congestive heart failure and follows up with his director of search engine optimization Dr. Grewal as well as his radiological technician Dr. birmingham for his COPD. He no longer smokes. CBC/BMP: 08/28/16 0507 08/29/16 0830 Significant Findings Laboratory Tests Test 08/27/16 08/27/16 08/28/16 08/29/16 12:55 17:55 05:07 08:30 White Blood Count 16.4 TH/MM3 13.0 TH/MM3 (4.0-11.0) (4.0-11.0) Mean Corpuscular Volume 74.8 FL 76.0 FL (80.0-100.0) (80.0-100.0) Mean Corpuscular Hemoglobin 24.6 PG 24.5 PG (27.0-34.0) (27.0-34.0) Neutrophils (%) (Auto) 88.2 % 95.2 % (16.0-70.0) (16.0-70.0) Lymphocytes (%) (Auto) 2.9 % 1.9 % (9.0-44.0) (9.0-44.0) Basophils (%) (Auto) 3.5 % (0.0-2.0) Neutrophils # (Auto) 14.4 TH/MM3 12.5 TH/MM3 (1.8-7.7) (1.8-7.7) Lymphocytes # (Auto) 0.5 TH/MM3 0.2 TH/MM3 (1.0-4.8) (1.0-4.8) Basophils # (Auto) 0.6 TH/MM3 (0-0.2) Sodium Level 134 MEQ/L 135 MEQ/L 135 MEQ/L (136-145) (136-145) (136-145) Chloride Level 93 MEQ/L 91 MEQ/L 91 MEQ/L (98-107) (98-107) (98-107) Blood Urea Nitrogen 39 MG/DL (7-18) 43 MG/DL (7-18) 44 MG/DL (7-18) Estimat Glomerular Filtration 52 ML/MIN (>89) 38 ML/MIN (>89) 41 ML/MIN (>89) Rate Random Glucose 122 MG/DL 280 MG/DL 301 MG/DL (74-106) (74-106) (74-106) Blood Gas Base Excess 2.1 mmol/L (-2-2) Arterial Blood pH 7.49 (7.380-7.420) Arterial Blood Partial 34 mmHG (38-42) Pressure CO2 Anion Gap 16 MEQ/L (5-15) 16 MEQ/L (5-15) Creatinine 1.70 MG/DL 1.60 MG/DL (0.60-1.30) (0.60-1.30) Imaging Last Impressions Chest X-Ray 08/28/16 0600 Signed Impressions: Service Date/Time: Sunday, August 28, 2016 06:37 - CONCLUSION: 1. Stable left apical mass. 2. bibasilar atelectasis and/or fibrotic scarring. 3. No acute focal pulmonary infiltrate or pulmonary vascular congestion. 4. Degenerative changes and scoliosis of the thoracolumbar spine. Estevan Resendez MD PE at Discharge GENERAL: Well-nourished, well-developed patient. SKIN: Warm and dry. HEAD: Normocephalic. EYES: No scleral icterus. No injection or drainage. NECK: Supple, trachea midline. No JVD or lymphadenopathy. CARDIOVASCULAR: Regular rate and rhythm without murmurs, gallops, or rubs. RESPIRATORY: Breath sounds equal bilaterally and clear to auscultation without wheezes. No accessory muscle use on 2 L nasal cannula. GASTROINTESTINAL: Abdomen soft, non-tender, nondistended. EXTREMITIES: 1+ pitting pedal edema bilaterally to the mid calf. NEUROLOGICAL: Awake, alert, and oriented x 3. Non-focal. Hospital Course The patient was admitted to the hospital and treated with antibiotics, steroids and nebulizers. He did improve. He is also diuresed for the pedal edema however he developed some mild acute kidney injury which is improved today. The patient states that his edema responds to leg elevation as well as DIEUDONNE hose. He had a walk test today demonstrating he does require home oxygen. This will be arranged for him. The patient was instructed to not take his Lasix at home until cleared by his primary care physician. He'll be discharged home today with oxygen. Pt Condition on Discharge: Stable Discharge Disposition: Discharge Home Discharge Time: > 30 minutes Discharge Instructions DIET: Follow Instructions for: Heart Healthy Diet Activities you can perform: Regular-No Restrictions Other Activity Instructions: Wear dieudonne hose daily Follow up Referrals: PCP Follow-up - 1 Week New Medications: Ipratropium-Albuterol Neb (Duoneb) 0.5-2.5 Mg/3 Ml Neb 1 NEBULE INH Q4HR NEB Breathing Treatment #180 Ref 0 NEBULE Nebulizer (Nebulizer) 1 Mis Mis 1 EA .ROUTE DIRECTED Breathing Treatment #1 Ref 0 EA Oxygen tank (Oxygen tank) 1 Ea Tank 2 LITER PAUL.CANULA CONTINUOUS Oxygen Concentrator Portable Gaseous 2 L/min via Nasal Cannula Continuous For 99 months HYPOXEMIA PREVENTION #2 CYLINDER Prednisone (Prednisone) 20 Mg Tab 20 MG PO DIRECTED 40 MG twice a day x 3 days, then 20 MG daily x 3 days, then 10 MG daily x 3 days Inflammation #11 Ref 0 TAB Tiotropium Inh (Spiriva Respimat Inh) 1.25 Mcg/Act Aero 2 PUFF INH DAILY 1.25 mcg = 1 inhalation Asthma Management #1 Ref 0 INHALER Continued Medications: Albuterol 8.5 GM Inh (Proair Hfa 8.5 GM Inh) 90 Mcg/Act Aer 1 PUFF INH Q4H 108 mcg/actuation PRN SHORTNESS OF BREATH #1 Ref 0 INHALER Aspirin (Aspirin) 81 Mg Tabdr 81 MG PO DAILY TAB Cetirizine (Zyrtec Allergy) 10 Mg Cap 10 MG PO DAILY Allergies Ref 0 CAP Diltiazem ER 24 HR (Taztia Xt) 240 Mg Caper 240 MG PO DAILY #90 Ref 1 CAP Hydrocodone W/ Homatropine (Hydrocodone/Homatropine 5-1.5 mg/5Ml) 1 Syp Syp 5 ML PO Q4-6H PRN COUGH #100 ML Ipratropium-Albuterol Neb (Duoneb) 0.5-2.5 Mg/3 Ml Neb 1 NEBULE INH BID Breathing Treatment #30 Ref 0 NEBULE Levofloxacin (Levaquin) 500 Mg Tab 500 MG PO DAILY Infection #4 Ref 0 TAB (This prescription has been renewed) Lisinopril-Hctz (Lisinopril-Hctz) 20-12.5 Mg Tab 1 TAB PO DAILY Blood Pressure Management #30 Ref 0 TAB Metoprolol Tartrate (Metoprolol Tartrate) 100 Mg Tab 100 MG PO DAILY #90 Ref 1 TAB Discontinued Medications: Furosemide (Furosemide) 20 Mg Tab 40 MG PO BID #180 Ref 0 TAB Prednisone (Prednisone) 5 Mg Tab Unknown Dose PO DIRECTED Ref 0 TAB Prednisone (Prednisone) 20 Mg Tab 40 MG PO DAILY Days 4 TAB Lidia Hollins MD Aug 29, 2016 12:02
[2016-08-29] MEDS ORDERED: LEVOFLOXACIN 750 MG PREMIX INJ 150 ML IV SCH (18:00)
[2016-08-30] MEDS ORDERED: TEMA15CA PO (12:43)
[2016-10-10] MEDS ORDERED: FURO1TAB62 PO (14:40)
[2016-10-10] MEDS ORDERED: METO50TA PO (14:41)
[2016-10-10] MEDS ORDERED: TAZT240C PO (14:46)
[2016-10-17] MEDS ORDERED: TRAM50TA PO (10:43)
[2016-10-17] MEDS ORDERED: FLUT50SP EACH NARE (10:43)
[2016-10-23] MEDS ORDERED: ALPR0.25 PO (11:49)
[2016-11-07] MEDS ORDERED: TRAM50TA PO (11:53)
[2016-12-12] MEDS ORDERED: METO-426 PO (15:57)
[2016-12-12] MEDS ORDERED: ALPR0.25 PO (15:57)
[2016-12-12] MEDS ORDERED: ALPR0.5T3 PO (16:17)
== END 2016-08-29 15:00 | disposition home health service (06) | DRG 191 ==
LOC: PHED 11:53 → PHEDA 13:55 → PH3A 15:18
PROVIDERS: ADMIT Family Medicine; ATTEND Family Medicine
DX: J44.1 Chronic obstructive pulmonary disease with (acute) exacerbation (principal); N17.9 Acute kidney failure, unspecified; I50.9 Heart failure, unspecified; I48.91 Unspecified atrial fibrillation; I25.10 Atherosclerotic heart disease of native coronary artery without angina pectoris; I35.0 Nonrheumatic aortic (valve) stenosis; I10 Essential (primary) hypertension; E66.9 Obesity, unspecified; Z68.29 Body mass index [BMI] 29.0-29.9, adult; Z85.038 Personal history of other malignant neoplasm of large intestine; Z87.891 Personal history of nicotine dependence
CPT/HCPCS: 36600; 71010; 71020; 80048; 80053; 82805; 83880; 84484; 85007; 85025; 85027; 87804; 94620; 94640; 94664; 96374; 96375; 99285; J1650; J1940; J1956; J2930; J7512; J7613

== ENCOUNTER 2016-09-04 09:05 | Inpatient (IN) | payer MEDICARE ==
[2016-09-04] VITALS (18 sets, daily range): BP systolic 125–160; BP diastolic 61–91; PULSE 54–132; RESP 16–27; TEMP 97.6–98.9; O2SAT 91–98
[~2016-09-04] VITALS: Ht 167.6 cm; Wt 82.1 kg
[~2016-09-04 09:05] MED LIST changes: -FURO20TA PO; +NEBULIZER1 MI1; +OXYGENTANK NAS.CANULA; -PRED5TAB PO; +TEMA15CA PO; +TIOT1AER2 INH
--- NOTE | 2016-09-04 09:15 | PD ---
HPI Chief Complaint: Respiratory Symptoms Time Seen by Provider: 09:08 Travel History International Travel<30 days: No Contact w/Intl Traveler<30days: No Traveled to known affect area: No History of Present Illness HPI 86-year-old male came to the emergency room with history of shortness of breath. Patient was discharged home one week ago after being in the hospital for 2 days in [place]. That time he was diagnosed with pneumonia. Patient says that shortness of breath has started to come back and progressively worsening. His is here and she says that she also noticed that he had swelling all over his body especially his legs. No history of chest pain. Patient requires 2 L of oxygen via nasal cannula all the time. His oxygen saturation was 90 patient a 4% on 2 L. Patient has history of atrial fibrillation and he is in A. fib on the monitor with heart rate in 1 teens. He is awake and answering questions appropriately. He said he has history of COPD and congestive heart failure. 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 Patient says that when he was discharged home last time they stopped his water pill. He says currently his shortness of breath is even at rest. Patient is not on any blood thinners except for one baby aspirin every day. [facility] Past Medical History Narrative Medical List of his past medical, social, surgical, family history is reviewed from the nursing note. Hx Anticoagulant Therapy: Yes (81mg asa) Arthritis: Yes Asthma: No Atrial Fibrillation: Yes Autoimmune Disease: No Anxiety: Yes Heart Rhythm Problems: Yes (ATRIAL FIBRILATION) Cancer: No Cardiovascular Problems: Yes (htn on meds) High Cholesterol: Yes Chemotherapy: Yes (COLON CA) Chest Pain: Yes Congestive Heart Failure: Yes COPD: Yes Cerebrovascular Accident: No Coronary Artery Disease: Yes Diabetes: No Diminished Hearing: Yes Endocrine: No Gastrointestinal Disorders: No GERD: Yes Glaucoma: No Genitourinary: Yes (PROSTATE) Headaches: No Hepatitis: No Hiatal Hernia: No Hypertension: Yes Immune Disorder: No Implanted Vascular Access Dvce: No Kidney Stones: No Musculoskeletal: Yes (ARTHRITIS) Neurologic: No Psychiatric: No Reproductive: No Respiratory: Yes (COPD) Immunizations Current: Yes Migraines: No Pneumonia: Yes Radiation Therapy: No Renal Failure: No Seizures: No Sleep Apnea: No Thyroid Disease: No Tetanus Vaccination: > 5 Years Influenza Vaccination: Yes Past Surgical History Abdominal Surgery: Yes (UMBILIC HERNIA 1997, COLON RESECTION 08/04/14) AICD: No Appendectomy: Yes (MAR 2014) Arteriovenous Shunt: No Eye Surgery: Yes (cataracts) Genitourinary Surgery: Yes (COLD THERAPY ON BLADDER, TURP 08/06) Insulin Pump: No Neurologic Surgery: No Pacemaker: No Tonsillectomy: Yes Other Surgery: Yes (TURP) Social History Alcohol Use: No Tobacco Use: No (former) Substance Use: No Allergies-Medications (Allergen,Severity, Reaction): Coded Allergies: No Known Allergies (Verified , 09/04/16) Comments No known drug allergies. Reported Meds & Prescriptions Reported Meds & Active Scripts Active Temazepam 15 Mg Cap 15 Mg PO HS PRN Nebulizer 1 Mis Mis 1 Ea .ROUTE DIRECTED Prednisone 20 Mg Tab 20 Mg PO DIRECTED 40 MG twice a day x 3 days, then 20 MG daily x 3 days, then 10 MG daily x 3 days Spiriva Respimat Inh (Tiotropium Inh) 1.25 Mcg/Act Aero 2 Puff INH DAILY 1.25 mcg = 1 inhalation Duoneb (Ipratropium-Albuterol Neb) 0.5-2.5 Mg/3 Ml Neb 1 Nebule INH Q4HR NEB Oxygen tank (Oxygen) 1 Ea Tank 2 Liter PAUL.CANIPDIA CONTINUOUS Oxygen Concentrator Portable Gaseous 2 L/min via Nasal Cannula Continuous For 99 months Hydrocodone/Homatropine 5-1.5 mg/5Ml (Hydrocodone W/ Homatropine) 1 Syp Syp 5 Ml PO Q4-6H PRN Taztia Xt (Diltiazem ER 24 HR) 240 Mg Caper 240 Mg PO DAILY Reported Lisinopril-Hctz 20-12.5 Mg Tab 1 Tab PO DAILY Duoneb (Ipratropium-Albuterol Neb) 0.5-2.5 Mg/3 Ml Neb 1 Nebule INH BID Proair Hfa 8.5 GM Inh (Albuterol Sulfate) 90 Mcg/Act Aer 1 Puff INH Q4H PRN 108 mcg/actuation Aspirin 81 Mg Tabdr 81 Mg PO DAILY Metoprolol Tartrate 100 Mg Tab 100 Mg PO DAILY Narrative Medication List of his home medications reviewed from the nursing note. Review of Systems Except as stated in HPI: all other systems reviewed are Neg Physical Exam Narrative GENERAL: Awake, alert, moderate distress, elderly SKIN: Warm and dry. HEAD: Atraumatic. Normocephalic. EYES: Pupils equal and round. No scleral icterus. No injection or drainage. ENT: No nasal bleeding or discharge. Mucous membranes pink and moist. NECK: Trachea midline. No JVD. CARDIOVASCULAR: Irregularly irregular heart rhythm, tachycardia. No murmur appreciated. RESPIRATORY: No accessory muscle use. Decreased air entry bilaterally with coarse crackles GASTROINTESTINAL: Abdomen soft, non-tender, nondistended. Hepatic and splenic margins not palpable. MUSCULOSKELETAL: No obvious deformities. No clubbing. No cyanosis. Generalized anasarca NEUROLOGICAL: Awake and alert. No obvious cranial nerve deficits. Motor grossly within normal limits. Normal speech. PSYCHIATRIC: Appropriate mood and affect; insight and judgment normal. Data Data Last Documented VS Vital Signs Date Time Temp Pulse Resp B/P Pulse Ox O2 Delivery O2 Flow Rate FiO2 09/04/16 10:50 93 Nasal Cannula 2.50 09/04/16 09:24 110 22 125/65 Orders Complete Blood Count With Diff (09/04/16 09:34) Comprehensive Metabolic Panel (09/04/16 09:34) B-Type Natriuretic Peptide (09/04/16 09:34) Prothrombin Time / Inr (Pt) (09/04/16 09:34) Magnesium (Mg) (09/04/16 09:34) Ckmb (Isoenzyme) Profile (09/04/16 09:34) Troponin I (09/04/16 09:34) Urinalysis - C+S If Indicated (09/04/16 09:34) Iv Access Insert/Monitor (09/04/16 09:34) Ecg Monitoring (09/04/16 09:34) Oximetry (09/04/16 09:34) Oxygen Administration (09/04/16 09:34) Chest, Single Ap (09/04/16 09:34) Sodium Chloride 0.9% Flush (Ns Flush) (09/04/16 09:45) Furosemide Inj (Lasix Inj) (09/04/16 09:45) Diltiazem Inj (Cardizem Inj) (09/04/16 10:30) Ct Thorax/ Chest W Iv Contrast (09/04/16 ) Ct Abd/Pel W Iv Contrast(Rout) (09/04/16 ) CKMB (09/04/16 09:35) CKMB% (09/04/16 09:35) Electrocardiogram (09/04/16 ) Admit Order (Ed Use Only) (09/04/16 11:19) Diet Heart Healthy (09/04/16 Lunch) Vital Signs (Adult) ROSALINDA.Q4H (09/04/16 11:19) Resp Oxygen Paul C Titrat 1-4 L (09/04/16 ) Hand Leather Trimmer / Telemetry ROSALINDA.Q8H (09/04/16 11:19) Albuterol Neb (Albuterol Neb) (09/04/16 12:00) Labs Laboratory Tests Test 09/04/16 09/04/16 09:35 10:32 White Blood Count 10.9 TH/MM3 Red Blood Count 5.59 MIL/MM3 Hemoglobin 13.8 GM/DL Hematocrit 41.8 % Mean Corpuscular Volume 74.9 FL Mean Corpuscular Hemoglobin 24.7 PG Mean Corpuscular Hemoglobin 33.0 % Concent Red Cell Distribution Width 16.0 % Platelet Count 123 TH/MM3 Mean Platelet Volume 8.5 FL Neutrophils (%) (Auto) 87.4 % Lymphocytes (%) (Auto) 5.6 % Monocytes (%) (Auto) 6.9 % Eosinophils (%) (Auto) 0.0 % Basophils (%) (Auto) 0.1 % Neutrophils # (Auto) 9.5 TH/MM3 Lymphocytes # (Auto) 0.6 TH/MM3 Monocytes # (Auto) 0.8 TH/MM3 Eosinophils # (Auto) 0.0 TH/MM3 Basophils # (Auto) 0.0 TH/MM3 CBC Comment AUTO DIFF Differential Total Cells 100 Counted Neutrophils % (Manual) 83 % Band Neutrophils % 2 % Lymphocytes % 7 % Monocytes % 4 % Eosinophils % 1 % Neutrophils # (Manual) 9.6 TH/MM3 Myelocytes 3 % Differential Comment FINAL DIFF MANUAL Platelet Estimate LOW Platelet Morphology Comment NORMAL Prothrombin Time 11.2 SEC Prothromb Time International 1.0 RATIO Ratio Sodium Level 129 MEQ/L Potassium Level 5.2 MEQ/L Chloride Level 90 MEQ/L Carbon Dioxide Level 30.4 MEQ/L Anion Gap 9 MEQ/L Blood Urea Nitrogen 36 MG/DL Creatinine 1.07 MG/DL Estimat Glomerular Filtration 66 ML/MIN Rate Random Glucose 187 MG/DL Calcium Level 9.7 MG/DL Magnesium Level 2.1 MG/DL Total Bilirubin 0.9 MG/DL Aspartate Amino Transf 37 U/L (AST/SGOT) Alanine Aminotransferase 54 U/L (ALT/SGPT) Alkaline Phosphatase 79 U/L Total Creatine Kinase 183 U/L Creatine Kinase MB 1.4 NG/ML Troponin I LESS THAN 0.02 NG/ML B-Type Natriuretic Peptide 46 PG/ML Total Protein 5.7 GM/DL Albumin 2.4 GM/DL Urine Color YELLOW Urine Turbidity CLEAR Urine pH 5.5 Urine Specific [place] 1.011 Urine Protein NEG mg/dL Urine Glucose (UA) NEG mg/dL Urine Ketones NEG mg/dL Urine Occult Blood NEG Urine Nitrite NEG Urine Bilirubin NEG Urine Urobilinogen LESS THAN 2.0 MG/DL Urine Leukocyte Esterase NEG Urine RBC LESS THAN 1 /hpf Urine WBC 1 /hpf Urine Squamous Epithelial <1 /hpf Cells Urine Mucus FEW /lpf Microscopic Urinalysis Comment CULT NOT INDICATED MDM Medical Decision Making Medical Screen Exam Complete: Yes Emergency Medical Condition: Yes Medical Record Reviewed: Yes Interpretation(s) Twelve-lead EKG was reviewed by me. Atrial fibrillation, right bundle branch block, multiple PVCs, tachycardia. Heart rate of 116 bpm. Differential Diagnosis Congestive heart failure, pneumonia, pleural effusion Narrative Course 11:02 AM blood test results are back. Patient is hyponatremic, hypoalbuminemic. Slightly elevated WBC with left shift. I gave him 60 mg of IV Lasix in anticipation of congestive heart failure. I got a phone call from the radiologist saying that he has noticed a left apical mass which seems unchanged from his last chest x-ray. I went and asked the patient and he does not know of any history of lung cancer. I have ordered a CT of his chest, abdomen and pelvis since the radiologist says his last CT chest showed a mass in his liver. Patient will require to be admitted. Awaiting for the hospitalist to call back. I gave her 15 mg of Cardizem IV to reduce the RVR. Procedures EKG Prior to Arrival: Yes Diagnosis Primary Impression: Respiratory distress Additional Impressions: Atrial fibrillation with RVR Lung mass Hyponatremia Hyperalbuminemia Anasarca Admitting Information Admitting Physician Requests: Admit Niki Vale MD Sep 04, 2016 09:15
[2016-09-04] MEDS ORDERED: FUROSEMIDE 100 MG/10 ML VIAL IVP ONE (09:45)
[2016-09-04 10:14] LABS: AUTOMATED NEUTROPHIL # 9.5 TH/MM3 (1.8-7.7); BASOPHIL % 0.1 % (0.0-2.0); HEMATOCRIT 41.8 % (39.0-51.0); LYMPH % 5.6 % (9.0-44.0); LYMPHOCYTE # 0.6 TH/MM3 (1.0-4.8); MEAN CELL VOLUME 74.9 FL (80.0-100.0); MEAN CORPUSCULAR HEMOGLOBIN 24.7 PG (27.0-34.0); MONO % 6.9 % (0.0-8.0); NEUT % 87.4 % (16.0-70.0); PLATELET COUNT 123 TH/MM3 (150-450); RED BLOOD COUNT 5.59 MIL/MM3 (4.50-5.90); WHITE BLOOD COUNT 10.9 TH/MM3 (4.0-11.0)
[2016-09-04 10:18] LABS: HEMO FLAGS AUTO DIFF
[2016-09-04 10:24] LABS: PROTHROMBIN TIME - PATIENT 11.2 SEC (9.8-11.6)
[2016-09-04] MEDS ORDERED: DILTIAZEM HCL 25 MG/5 ML VIAL IV ONE (10:30)
[2016-09-04 10:44] LABS: ANION GAP 9 MEQ/L (5-15); AST (GOT) 37 U/L (15-37); BICARBONATE 30.4 MEQ/L (21.0-32.0); BLOOD UREA NITROGEN 36 MG/DL (7-18); CHLORIDE 90 MEQ/L (98-107); GLOMERULAR FILTRATION RATE 66 ML/MIN (>89); MAGNESIUM 2.1 MG/DL (1.5-2.5); POTASSIUM 5.2 MEQ/L (3.5-5.1); SODIUM (NA) 129 MEQ/L (136-145)
--- NOTE | 2016-09-04 10:46 | RADRPT ---
EXAM DATE/TIME: 09/04/2016 09:57 [facility] COMPARISON: CHEST PA & LAT, August 28, 2016, 6:37. CT PULMONARY ANGIOGRAM, December 20, 2015, 15:46. INDICATIONS : Patient has been short of breath and congested for a week. Both feet of his are both swollen. MEDICAL HISTORY : Congestive heart failure. Hypertension Chronic obstructive pulmonary SURGICAL HISTORY : None. ENCOUNTER: Initial ACUITY: 1 week PAIN SCORE: 0/10 LOCATION: chest FINDINGS: No infiltrate, effusion or pneumothorax. Heart size stable, within normal limits. Tortuous and athero sclerotic aorta again noted. Left apical mass not significantly changed. CONCLUSION: Stable radiographic appearance of the chest without acute abnormality demonstrated. There is no signi ficant change in the large left apical mass. Claudio Buchanan MD on September 04, 2016 at 10:40 Board Certified Radiologist. This report was verified electronically.
[2016-09-04 10:50] LABS: BANDS 2 % (0-6); EOSINOPHILS 1 % (0-4); MYELOCYTES 3 % (0-0); NEUTROPHIL # MANUAL DIFF 9.6 TH/MM3 (1.8-7.7); POLYS (SEG NEUTROPHILS) 83 % (16-70); WBC DIFF SAMPLE 100
[2016-09-04 10:52] LABS: ALKALINE PHOSPHATASE 79 U/L (45-117); ALT (GPT) 54 U/L (12-78); CREATINE KINASE 183 U/L (39-308); PLATELET ESTIMATE SMEAR LOW (NORMAL); PLATELET MORPHOLOGY NORMAL (NORMAL); SCAN/DIFF FINAL DIFF MANUAL; TOTAL BILIRUBIN ADULT 0.9 MG/DL (0.2-1.0)
[2016-09-04 11:04] LABS: CKMB 1.4 NG/ML (0.5-3.6)
[2016-09-04 11:05] LABS: BLOOD, URINE NEG (NEG); COMMENT (UR) CULT NOT INDICATED; CULTURE IF INDICATED CULT NOT INDICATED; GLUCOSE,URINE NEG (NEG); KETONE, URINE NEG (NEG); MUCUS URINE FEW /lpf (OCC); NITRITE,URINE NEG (NEG); PH, URINE 5.5 (5.0-8.5); SQUAMOUS EPITHELIAL CELL URINE <1 /hpf (0-5); URINE COLOR YELLOW (YELLW/STRAW)
[2016-09-04] MEDS ORDERED: IOHEXOL 350 MG/ML 10 ML VIAL (for RAD DIAG) IV ONE (11:37)
[2016-09-04] MEDS ORDERED: RESP: ALBUTEROL 1.25 MG/3 ML NEB (PRN) NEB (12:00)
--- NOTE | 2016-09-04 12:32 | RADRPT ---
EXAM DATE/TIME: 09/04/2016 11:30 [facility] COMPARISON: CT ABDOMEN & PELVIS W CONTRAST, October 29, 2014, 17:38. INDICATIONS : Abdominal mass; evaluate for metastases. IV CONTRAST: 100 cc Omnipaque 350 (iohexol) IV ; Cumulative dose for multiple exams. ORAL CONTRAST: No oral contrast ingested. RADIATION DOSE: 19.77 CTDIvol (mGy) ; Combined studies - Thorax/Abdomen/Pelvis MEDICAL HISTORY : Gastroesophageal reflux disease. Carcinoma, colon. Chronic obstructive pulmonary disease.GERD, cardio vascular disease, hypertension. SURGICAL HISTORY : Colon resection. Umbilical hernia repair.Appendectomy.TURP. ENCOUNTER: Initial ACUITY: 1 day PAIN SCALE: 0/10 LOCATION: abdomen. TECHNIQUE: Volumetric scanning of the abdomen and pelvis was performed. Using automated exposure control and ad justment of the mA and/or kV according to patient size, radiation dose was kept as low as reasonably achievable to obtain optimal diagnostic quality images. FINDINGS: LOWER LUNGS: The visualized lower lungs are clear. LIVER: Hypodense mass with ill-defined margins measuring approximately 9.2 x 9.8 cm in size is seen inferior ly in the right hepatic lobe. This is new from the prior CT of the abdomen and pelvis elsewhere in th e liver, numerous small, unchanged cysts are again seen. CT appearance of the gallbladder within norm al limits. SPLEEN: Normal size without lesion. PANCREAS: Within normal limits. KIDNEYS: Normal in size and shape. There is no mass, stone or hydronephrosis. ADRENAL GLANDS: Within normal limits. VASCULAR: There is dense atherosclerotic plaque of the abdominal aorta and iliac arteries. No aneurysm. 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 BOWEL/MESENTERY: The stomach, small bowel, and colon demonstrate no acute abnormality. There is no free intraperitone al air or fluid. ABDOMINAL WALL: Within normal limits. RETROPERITONEUM: There is no lymphadenopathy. BLADDER: No wall thickening or mass. REPRODUCTIVE: Nonspecific enlargement of the prostate again noted. INGUINAL: There is no lymphadenopathy or hernia. MUSCULOSKELETAL: Within normal limits for patient age. CONCLUSION: 1. Large ill-defined mass inferiorly of the right hepatic lobe, malignant until proven otherwise. 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 Elsewhere in the liver numerous stable subcentimeter cysts are noted. 2. Interim colon resection. No recurrent mass, obstruction, inflammation or other acute abnormality s een of the GI tract. 3. Severe aortoiliac atherosclerosis without aneurysm. 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 5. Nonspecific heterogeneous enlargement of the prostate again noted. Claudio Buchanan MD on September 04, 2016 at 12:25 Board Certified Radiologist. This report was verified electronically.
--- NOTE | 2016-09-04 12:40 | RADRPT ---
EXAM DATE/TIME: 09/04/2016 11:30 [facility] COMPARISON: CT PULMONARY ANGIOGRAM, December 20, 2015, 15:46. CT PULMONARY ANGIOGRAM, April 18, 2013, 17:14. INDICATIONS : Abdominal mass; evaluate for metastases. IV CONTRAST: 100 cc Omnipaque 350 (iohexol) IV ; Cumulative dose for multiple exams. RADIATION DOSE: 19.77 CTDIvol (mGy) ; Combined studies - Thorax/Abdomen/Pelvis MEDICAL HISTORY : Carcinoma, colon. Cardiovascular disease Chronic obstructive pulmonary disease.Hypertension, GERD. SURGICAL HISTORY : Appendectomy. Colon resection.Umbilical hernia repair.TURP. ENCOUNTER: Initial ACUITY: 1 day PAIN SCALE: 0/10 LOCATION: chest TECHNIQUE: Volumetric scanning of the chest was performed. Using automated exposure control and adjustment of t he mA and/or kV according to patient size, radiation dose was kept as low as reasonably achievable to obtain optimal diagnostic quality images. FINDINGS: Mild atelectasis seen at the visualized lung bases. There is a tiny pleural effusion on the right. 6. 4 cm lobulated low density left apical mass again noted, unchanged. There is bilateral thyroid nodula r goiter with intrathoracic extension, right more so than left, also similar to before. No mediastinal, hilar or axillary lymphadenopathy. Mild quiroz chamber enlargement of the heart aga in noted. There is right and left-sided coronary artery calcification. Mild lucency seen within several mid and lower sequential thoracic vertebral bodies, unchanged a nd presumably degenerative related trabecular resorption. No acute abnormality seen of the visualized osseous structures. CONCLUSION: 1. Mild bibasilar atelectasis and a tiny, nonspecific right pleural effusion. 2. Large but stable, presumably benign left apical mass. 3. Mild quiroz chamber enlargement of the heart and diffuse coronary artery calcification. 4. 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 Claudio Buchanan MD on September 04, 2016 at 12:32 Board Certified Radiologist. This report was verified electronically.
--- NOTE | 2016-09-04 13:28 | HHI.HP ---
[facility] Service [facility]ician Meagan Martin MD Admission Diagnosis respiratory distress, A. fib with RVR, lung mass Diagnoses: (1) Atrial fibrillation with RVR Diagnosis: Principal (2) Liver mass Diagnosis: Principal (3) CHF (congestive heart failure) Diagnosis: Principal Chief Complaint: worsening sob Travel History International Travel<30 Days: No Contact w/Intl Traveler <30 Da: No Traveled to Known Affected Are: No History of Present Illness patient is a 86 y/o male with history of CHF,COPD, colon cancer, who was recently discharged from the hospital after he was treated for COPD exacerbation and pneumonia presented to ER again with worsening sob. he says that his difficulty breathing gradually started to get worse again. he has a dry cough. he denies any fever or chills. he says that he had to sit up over night because of persistent cough. he's gained a couple of pounds recently and he noticed that his legs are more swollen.of note he was recently started on home oxygen and his diuretics were stopped due to kidney failure. Review of Systems Constitutional: COMPLAINS OF: Weight gain, DENIES: Fever, Weight loss, Chills , Night Sweats Eyes: DENIES: Blurred vision, Diplopia, Vision loss, Double Vision Ears, nose, mouth, throat: DENIES: Tinnitus, Vertigo, Throat pain, Epistaxis Respiratory: COMPLAINS OF: Cough, Shortness of breath, DENIES: Apneas, Snoring , Wheezing, Hemoptysis, Sputum production Cardiovascular: COMPLAINS OF: Dyspnea on Exertion, Lower Extremity Edema, Orthopnea, DENIES: Chest pain, Palpitations, Syncope, PND, Claudication Gastrointestinal: DENIES: Abdominal pain, Black stools, Bloody stools, Constipation, Diarrhea, Nausea, Vomiting, Difficulty Swallowing, Anorexia Genitourinary: DENIES: Urinary frequency, Urgency, Hematuria, Dysuria Musculoskeletal: DENIES: Joint pain, Muscle aches, Stiffness, Joint Swelling Integumentary: DENIES: Rash Neurologic: DENIES: Abnormal gait, Headache, Localized weakness, Paresthesias, Seizures, Speech Problems, Tremor, Poor Balance Psychiatric: DENIES: Anxiety, Confusion, Mood changes, Depression, Hallucinations, Agitation, Suicidal Ideation, Homicidal Ideation, Delusions Past Family Social History Past Medical History atrial fibrillation CHF COPD colon cancer hypertension Past Surgical History appendectomy colon resection Reported Medications Temazepam 15 Mg Cap 15 Mg PO HS PRN Nebulizer 1 Mis Mis 1 Ea .ROUTE DIRECTED Prednisone 20 Mg Tab 20 Mg PO DIRECTED 40 MG twice a day x 3 days, then 20 MG daily x 3 days, then 10 MG daily x 3 days Spiriva Respimat Inh (Tiotropium Inh) 1.25 Mcg/Act Aero 2 Puff INH DAILY 1.25 mcg = 1 inhalation Duoneb (Ipratropium-Albuterol Neb) 0.5-2.5 Mg/3 Ml Neb 1 Nebule INH Q4HR NEB Oxygen tank (Oxygen) 1 Ea Tank 2 Liter PAUL.CANULA CONTINUOUS Oxygen Concentrator Portable Gaseous 2 L/min via Nasal Cannula Continuous For 99 months Hydrocodone/Homatropine 5-1.5 mg/5Ml (Hydrocodone W/ Homatropine) 1 Syp Syp 5 Ml PO Q4-6H PRN Taztia Xt (Diltiazem ER 24 HR) 240 Mg Caper 240 Mg PO DAILY Reported Lisinopril-Hctz 20-12.5 Mg Tab 1 Tab PO DAILY Duoneb (Ipratropium-Albuterol Neb) 0.5-2.5 Mg/3 Ml Neb 1 Nebule INH BID Proair Hfa 8.5 GM Inh (Albuterol Sulfate) 90 Mcg/Act Aer 1 Puff INH Q4H PRN 108 mcg/actuation Aspirin 81 Mg Tabdr 81 Mg PO DAILY Metoprolol Tartrate 100 Mg Tab 100 Mg PO DAILY Allergies: Coded Allergies: No Known Allergies (Verified , 09/04/16) Active Ordered Medications Current Medications IV Flush (NS Flush) 2 ml UNSCH PRN IVF FLUSH AFTER USING IV ACCESS; Start at 09:45 Furosemide (Lasix Inj) 60 mg ONCE ONCE IVP Last administered on 09/04/16 10:33 ; Start 09/04/16 at 09:45; Stop 09/04/16 at 09:46; Status DC Diltiazem HCl (Cardizem Inj) 15 mg ONCE ONCE IV Last administered on 09/04/16 10:33; Start 09/04/16 at 10:30; Stop 09/04/16 at 10:31; Status DC Albuterol Sulfate (Albuterol Neb) 1.25 mg Q2HR NEB PRN NEB SHORTNESS OF BREATH ; Start 09/04/16 at 12:00 Iohexol 100 ml 100 ml STK-MED ONCE IV Last administered on 09/04/16t 11:37; Start 09/04/16 at 11:37; Stop 09/04/16 at 11:38; Status DC Diltiazem HCl/ Sodium Chloride (Cardizem Inj/NS Inj) 125 ml @ 0 mls/hr TITRATE IV ; Start 09/04/16 at 13:15; Status UNV Aspirin (Ecotrin Ec) 81 mg DAILY PO ; Start 09/05/16 at 09:00; Status UNV Metoprolol Tartrate (Lopressor) 100 mg DAILY PO ; Start 09/05/16 at 09:00; Status UNV Temazepam (Restoril) 15 mg HS PRN PO INSOMNIA; Start 09/04/16 at 13:15; Status UNV Non-Formulary Medication 2 puff DAILY INH AST; Start 09/05/16 at 09:00; Status UNV Social History quit smoking years ago- doesn't drink. Physical Exam Vital Signs Vital Signs Date Time Temp Pulse Resp B/P Pulse Ox O2 Delivery O2 Flow Rate FiO2 09/04/16 12:25 100 20 92 Nasal Cannula 2.5 09/04/16 12:25 116 16 136/75 98 Room Air 09/04/16 10:50 93 Nasal Cannula 2.5 09/04/16 09:24 110 22 125/65 93 Nasal Cannula 2.5 09/04/16 09:08 110 22 125/65 94 Physical Exam GENERAL: with some sob. HEAD: Atraumatic. Normocephalic. No temporal or scalp tenderness. EYES: Pupils equal round and reactive. Extraocular motions intact. No scleral icterus. No injection or drainage. ENT: Nose without bleeding, purulent drainage or septal hematoma. Throat without erythema, tonsillar hypertrophy or exudate. Uvula midline. Airway patent. NECK: Trachea midline. No JVD or lymphadenopathy. Supple, nontender, no meningeal signs. CARDIOVASCULAR: Regular rate and rhythm without murmurs, gallops, or rubs. RESPIRATORY: diminished air entry in bases. GASTROINTESTINAL: Abdomen soft, non-tender, nondistended. No hepato-splenomegaly , or palpable masses. No guarding. MUSCULOSKELETAL: Extremities with +4 pedal edema. NEUROLOGICAL: Awake and alert. Cranial nerves II through XII intact. Motor and sensory grossly within normal limits. Five out of 5 muscle strength in all muscle groups. Normal speech. Laboratory Laboratory Tests Test 09/04/16 09/04/16 09:35 10:32 White Blood Count 10.9 Red Blood Count 5.59 Hemoglobin 13.8 Hematocrit 41.8 Mean Corpuscular Volume 74.9 Mean Corpuscular Hemoglobin 24.7 Mean Corpuscular Hemoglobin 33.0 Concent Red Cell Distribution Width 16.0 Platelet Count 123 Mean Platelet Volume 8.5 Neutrophils (%) (Auto) 87.4 Lymphocytes (%) (Auto) 5.6 Monocytes (%) (Auto) 6.9 Eosinophils (%) (Auto) 0.0 Basophils (%) (Auto) 0.1 Neutrophils # (Auto) 9.5 Lymphocytes # (Auto) 0.6 Monocytes # (Auto) 0.8 Eosinophils # (Auto) 0.0 Basophils # (Auto) 0.0 CBC Comment AUTO DIFF Differential Total Cells 100 Counted Neutrophils % (Manual) 83 Band Neutrophils % 2 Lymphocytes % 7 Monocytes % 4 Eosinophils % 1 Neutrophils # (Manual) 9.6 Myelocytes 3 Differential Comment FINAL DIFF MANUAL Platelet Estimate LOW Platelet Morphology Comment NORMAL Prothrombin Time 11.2 Prothromb Time International 1.0 Ratio Sodium Level 129 Potassium Level 5.2 Chloride Level 90 Carbon Dioxide Level 30.4 Anion Gap 9 Blood Urea Nitrogen 36 Creatinine 1.07 Estimat Glomerular Filtration 66 Rate Random Glucose 187 Calcium Level 9.7 Magnesium Level 2.1 Total Bilirubin 0.9 Aspartate Amino Transf 37 (AST/SGOT) Alanine Aminotransferase 54 (ALT/SGPT) Alkaline Phosphatase 79 Total Creatine Kinase 183 Creatine Kinase MB 1.4 Troponin I LESS THAN 0.02 B-Type Natriuretic Peptide 46 Total Protein 5.7 Albumin 2.4 Urine Color YELLOW Urine Turbidity CLEAR Urine pH 5.5 Urine Specific [place] 1.011 Urine Protein NEG Urine Glucose (UA) NEG Urine Ketones NEG Urine Occult Blood NEG Urine Nitrite NEG Urine Bilirubin NEG Urine Urobilinogen LESS THAN 2.0 Urine Leukocyte Esterase NEG Urine RBC LESS THAN 1 Urine WBC 1 Urine Squamous Epithelial <1 Cells Urine Mucus FEW Microscopic Urinalysis Comment CULT NOT INDICATED Result Diagram: 09/04/1693409/04/16934 Imaging Last Impressions Chest X-Ray 09/04/16933 Signed Impressions: Service Date/Time: Sunday, September 04, 2016 09:57 - CONCLUSION: Stable radiographic appearance of the chest without acute abnormality demonstrated. There is no significant change in the large left apical mass. Claudio Buchanan MD Chest CT 09/04/16 0000 Signed Impressions: Service Date/Time: Sunday, September 04, 2016 11:30 - CONCLUSION: 1. Mild bibasilar atelectasis and a tiny, nonspecific right pleural effusion. 2. Large but stable, presumably benign left apical mass. 3. Mild quiroz chamber enlargement of the heart and diffuse coronary artery calcification. 4. Multinodular goiter , similar to prior studies. Claudio Buchanan MD Abdomen/Pelvis CT 09/04/16 Signed Impressions: Service Date/Time: Sunday, September 04, 2016 11:30 - CONCLUSION: 1. Large ill-defined mass inferiorly of the right hepatic lobe, malignant until proven otherwise. A metastasis is possible but given the large size and no other similar hepatic lesions, a primary hepatocellular carcinoma is thought to be more likely. Elsewhere in the liver numerous stable subcentimeter cysts are noted. 2. Interim colon resection. No recurrent mass, obstruction, inflammation or other acute abnormality seen of the GI tract. 3. Severe aortoiliac atherosclerosis without aneurysm. 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 5. Nonspecific heterogeneous enlargement of the prostate again noted. Claudio Buchanan MD EKG; atrial fibrillation with rapid ventricular response Assessment and Plan Assessment and Plan A/P - acute on chronic diastolic CHF continue with IV diuretics- I/O monitoring- monitor renal function closely- consult cardiology. -COPD - on home oxgen; continue with neb treatment- will consult pulmonary. -atrial fibrillation with rapid ventricular response; start on Cardizem drip- resume BB- cardiology consult as noted above. -liver mass- suspicious for hepatocellular carcinoma- with history of colon cancer- will consult oncology -hypertension; resume BB- will resume PO Cardizem soon. -hyponatremia due to fluid overload- will monitor- BMP in am -left apical mass- stable -DVT prophylaxis with Lovenox Discussed Condition With the patient and ER physician. the RN. Physician Certification 2 Midnight Certification Type: Admission for Inpatient Services Order for Inpatient Services The services are ordered in accordance with Medicare regulations or non- Medicare payer requirements, as applicable. In the case of services not specified as inpatient-only, they are appropriately provided as inpatient services in accordance with the 2-midnight benchmark. Estimated LOS (days): 2 days is the estimated time the patient will need to remain in the hospital, assuming treatment plan goals are met and no additional complications. Post-Hospital Plan: Not yet determined Jose Duggan MD Sep 04, 2016 13:28
[2016-09-04] MEDS: DILTIAZEM INJ 125 MG in SODIUM CHLORIDE 0.9% INJ 100 ML IV SCH (14:27)
--- NOTE | 2016-09-04 15:41 | MB ---
cc: SERAFIN MAE M.D. DATE OF CONSULTATION: 09/04/2016 HISTORY OF PRESENT ILLNESS Hernan is a very pleasant 86-year-old gentleman with a history of atrial fibrillation, lower extremity edema, venous insufficiency, coronary artery disease, who has had multiple admissions for pneumonia over the past several months. He presents with chief complaint of shortness of breath associated with cough, postnasal drip, lower extremity edema inhibiting his ability to ambulate. ER workup includes a liver mass highly suspicious for carcinoma. He has low albumin and his BNP is very low. He is currently sleeping. He is easily arousable in no acute distress. Denies any chest pain, fevers, chills, GI or bleeding, PND, orthopnea. PAST MEDICAL HISTORY 1. Per history of present illness. 2. COPD. 3. Colon cancer. 4. Hypertension. 5. Appendectomy. 6. Status post colon resection. MEDICATIONS Medications prior to admission: 1. Temazepam. 2. Nebulizer. 3. Prednisone. 4. Spiriva. 5. DuoNeb. 6. Home oxygen. 7. Hydrocodone. 8. Diltiazem ER, 240 daily. 9. Lisinopril/HCTZ, 20/12.5 daily. 10.DuoNeb. 11.ProAir. 12.Aspirin 81 mg daily. 13.Metoprolol 100 mg daily. Medications in the hospital: 1. Aspirin 81 mg daily. 2. Metoprolol 100 daily. 3. Spiriva 2 mcg as directed. 4. Lasix 40 mg IV daily. 5. Lovenox 40, q.24h. 6. IV Cardizem. ALLERGIES None. SOCIAL HISTORY Denies tobacco or alcohol use. PHYSICAL EXAMINATION VITAL SIGNS: Blood pressure ranging between 100 and 110, respiratory rate 20, blood pressure 136/75. Sats 98% on 2.5 liters nasal cannula. GENERAL: He is alert and oriented x3 in no acute distress. NECK: Supple. No JVD. No bruit. CARDIOVASCULAR: S1, S2. No murmurs, rubs or gallops. LUNGS: Clear to auscultation bilaterally. ABDOMEN: Soft, nontender, nondistended, with positive bowel sounds. EXTREMITIES: 3+ lower extremity edema. IMAGING Chest x-ray shows stable radiographic appearance of the chest without acute abnormality demonstrated. There is no significant change in the large left apical mass. Abdominopelvic CT shows a large ill-defined mass inferiorly of the right hepatic lobe, "malignant until proven otherwise." A metastasis is possible but given the large size and no other similar hepatic lesions, a primary hepatocellular carcinoma is thought to be more likely. Elsewhere in the liver numerous stable sub-centimeter cysts are noted. Also noted severe aortoiliac atherosclerosis without aneurysm, short segment aneurysm of the right common femoral vein, nonspecific heterogenous enlargement of the prostate. Chest CT: Mild bibasilar atelectasis and a tiny nonspecific right pleural effusion, large but stable, presumably benign left apical mass. Mild panchamber enlargement of the heart and diffuse coronary artery calcification. Multinodular goiter similar to prior studies. EKG EKG shows atrial fibrillation at a rate of 116 beats per minute, PVCs versus abnormally PACs, right bundle-branch block. LABORATORY White count 7.9, hemoglobin 13.8, hematocrit 41.8, MCV 74.9, platelet count 123. Sodium 129, potassium 5.2, chloride 90, BUN 36, creatinine 1.07, glucose 187. Troponin is less than 0.02. BNP is 46. Albumin 2.4. INR is 1.0. DIAGNOSIS 1. Liver mass suspicious for hepatocellular carcinoma. 2. Lung mass. 3. Third spacing due to low oncotic pressure from low albumin possibly not malnutrition. 4. Thrombocytopenia. 5. Hyponatremia 6. Hyperkalemia. 7. Hyperglycemia. 8. Coronary artery disease. 9. Peripheral vascular disease. 10.COPD. 11.Atrial fibrillation with rapid ventricular response. DISCUSSION At this point in time the patient does not have any evidence of congestive heart failure and I am concerned that diuresis will worsen his already low intravascular volume from low oncotic pressure. Therefore, would be very cautious with diuretics. His shortness of breath is only associated with cough and not with exertion. It seems that his primary issue is working up his liver mass to determine his prognosis and medical options. I have recommended Coumadin and/or novel oral anticoagulant medication due to atrial fibrillation and CHADS score equal to 2. The patient refuses. Therefore will continue aspirin 81 mg a day. I do think it is reasonable to continue him on his metoprolol 100 daily and continue Cardizem as needed. Be cautious with too aggressive of rate control as part his high rate is due to low intravascular volume. Recommend daily BMP and BNP. Follow-up oncology evaluation and recommendations. MD ABILIO Cruz/BT /2:35 PM /3:08 PM
--- NOTE | 2016-09-04 18:25 | EKG ---
Date Performed: 09/04/2016 Time Performed: 09:46:10 PTAGE: 86 years EKG: ATRIAL FIBRILLATION WITH RAPID VENTRICULAR RESPONSE WITH ABERRANT CONDUCTION OR VENTRICULAR PREMATURE COMPLEXES RIGHT BUNDLE BRANCH BLOCK ABNORMAL ECG PREVIOUS TRACING : 06/13/2016 17.21 DOCTOR: David Gimenez Interpretating Date/Time 09/04/2016 18:23:35
--- NOTE | 2016-09-04 20:11 | MB ---
cc: Tony KIRKPATRICK M.D. DATE OF CONSULTATION: 09/04/2016 REASON FOR CONSULTATION: HISTORY OF PRESENT ILLNESS: Mr. Ibrahim is an 86 year-old white male whom I followed for about five years now with moderate to severe COPD. He was just hospitalized in early August, discharged home just last week and is now back in the hospital with increasing edema, shortness of breath and a CT scan in the ER revealed a liver mass. Hernan has had a left upper lobe mass, soft tissue density in the left lung for years, that has really never changed. CT scan on admission here again reveals no change in that mass. 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 In any event, that has not previously changed. Recent admission was for pneumonia, stable on discharge but returned again with more fluid. He was in atrial fibrillation with RVR and now this new liver lesion has been identified which is suspicious for malignancy. He did have a colon cancer surgery in 2014, so it is also possible that this is metastatic disease although the radiologist is less suspicious of that. The patient is seen this evening in his room. He is awake, alert, comfortable, not really short of breath at rest but he does have dyspnea on exertion. He has become extremely weak and the edema in his legs has only increased since discharge despite daily diuretics. Past medical history is well outlined in previous notes. He does have a history of hypertension. ALLERGIES None known. MEDICATIONS Reviewed in the EMR. REVIEW OF SYSTEMS No chest pain. No hemoptysis. No purulent sputum. No fever. PHYSICAL EXAMINATION Elderly white male, comfortable at rest on nasal oxygen, afebrile. Pulse on presentation 130, currently 80, blood pressure 130/80, respirations 16, O2 sat 94% on O2. Mucous membranes are moist. Neck: Neck veins are not distended. Chest: Chest is actually quite clear, diminished but no significant rales. No wheezing. Heart: Irregular heart rhythm. Soft systolic murmur. No audible S3. Abdomen: Obese, 2 to 3+ edema pretibial and ankle. Mr. Ibrahim presents with chronic cardiopulmonary problems but now in addition to that, a mass has been identified on a CT of the abdomen in the liver, questionable metastatic disease versus primary hepatic malignancy. From a pulmonary standpoint, we can continue oxygen and aerosol therapy. Further diagnostic and/or therapeutic intervention will depend on the results of these initial diagnostic studies in particular probable biopsy of the liver. R. MD JOYA Kelly/PAUL /6:32 PM /7:33 PM
--- NOTE | 2016-09-04 20:47 | MB ---
cc: ABDI VIVEROS MOHAMMADREZA MD DATE OF CONSULTATION: 09/04/2016 DATE OF : [address] Duggan CHIEF COMPLAINT History of colon cancer and new right liver mass. HISTORY OF PRESENT ILLNESS Mr. Ibrahim is an 86-year-old man with excellent performance status until about a month ago when he developed pneumonia. He initially presented to the emergency room on 08/26/2016 with respiratory symptoms. He has underlying COPD, atrial fibrillation, congestive heart failure. He had shortness of breath, productive cough, was unable to sleep. He was admitted to the hospital at [place]. He was treated for presumptive diagnosis of pneumonia and ultimately discharged home. On the day of the consultation, he presented to the emergency room again with shortness of breath. He was just discharged home two days ago from [place]. He reports that his shortness of breath started to come back. He also had leg swelling. His atrial fibrillation was not well-controlled. He was subsequently admitted. Imaging study included CT scan of the chest, shows mild bibasilar atelectasis and nonspecific right pleural effusion. There is a large stable benign left apical mass that has been previously biopsied in 2008. 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 It has been followed. Resection was contemplated but the patient declined. In 2016, he reports having a history of colon cancer. He had a right colon cecum, terminal ileum resected. He had a right hemicolectomy. There was fibrous serosal adhesion. The right colon and cecum showed tubular adenomas, nine pericolic lymph nodes were negative for tumor. 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 For this reason, the patient had never sought medical oncology evaluation. He reports that he has been cancer free, required no chemotherapy which would only be appropriate for the above finding. IMAGING STUDIES: During this admission showed CT scan of the abdomen revealing a large ill defined mass inferiorly of the right hepatic lobe. There were numerous stable sub-centimeter cysts when compared to previous. Last CT scan of the abdomen available for comparison was in 2016. The liver lesion was not there. Mr. Ibrahim denies any problems with hepatitis. He was never a heavy drinker. He reports no history of hemochromatosis in the family. He has had no liver issues and was quite healthy before his admission for this pneumonia. He complains of shortness of breath, leg swelling. He has difficulty sleeping. He has a chronic cough. Denies any pain at present. He moves his bowels regularly sometimes once or twice a day. He denies any melena or bright red blood per rectum. LABORATORY DATA: Review of his labs shows a microcytosis. He has no anemia. He has renal insufficiency on admission which improved. There is mild hyperglycemia. His liver function tests were normal except for a reading back in September 2010. No hepatitis serology were available. Iron studies were not available. He reports a significant family history of colon cancer. PAST MEDICAL HISTORY: 1. Colon resection without invasive malignancy. 2. Liver mass. 3. COPD. 4. Atrial fibrillation with rapid ventricular response. 5. Congestive heart failure. 6. COPD. 7. Hypertension. 8. Left upper lung schwannoma. PAST SURGICAL HISTORY 1. Appendectomy 2. Colon resection 3. Left upper lung biopsy FAMILY HISTORY: Significant for mother who in her 80s from colon cancer. Sister had colon cancer in her 70s. Father had no history of cancer. SOCIAL HISTORY He is , lives with his . He is a former smoker. Denies any alcohol or illicit drug use. ALLERGIES NO KNOWN DRUG ALLERGIES. HOME MEDICATIONS: 1. Temazepam 2. Prednisone 3. Spiriva 4. DuoNeb 5. Oxygen 6. Hycodan 7. Diltiazem 8. DuoNeb 9. Aspirin 81 milligrams 10. Lasix 11. Enoxaparin. PHYSICAL EXAMINATION VITAL SIGNS: Temperature 97.8, heart rate 105, respiratory 20, blood pressure 135/73, saturation 94%. GENERAL: Mr. Ibrahim is an 86 year-old elderly man who looks tired. HEENT: His pupils are round, reactive to light and accommodation. Oropharynx is clear. Neck: Supple. Lungs: With diminished breath sounds throughout. Cardiovascular: Exam reveals a tachycardia, irregularly irregular rhythm. Abdomen is large and benign. No fluid wave. The right lower quadrant scar is noted. There is bruising at the injection site. Extremities: Lower extremities with hairless shiny skin. There is skin atrophy. There is 2+ pitting edema. Neurological: Exam is nonfocal. LABORATORY DATA Significant for hyponatremia, sodium 129, BUN of 36, creatinine 1.07. LFTs are normal. CEA from 2015 is 1.4, hemoglobin 13.8, MCV 74.9, platelet count 123,000. ASSESSMENT/PLAN Mr. Ibrahim is an 86-year-old man with multiple medical problems described above. He has history of hypertension, COPD, atrial fibrillation, rapid ventricular response for which he is on aspirin. He reports a history of colon cancer which turned out some be some polyp with no invasive carcinoma. He has had a right hemicolectomy and appendectomy. Omentum was checked and was negative for malignancy. He presents with pneumonia and shortness of breath. His COPD exacerbation versus congestive heart failure versus contribution of atrial fibrillation with rapid ventricular response. Imaging study revealed a right liver mass. His liver lesion is concerning for primary hepatocellular cancer versus a metastatic disease. I had a lengthy discussion with And Mrs. Ibrahim. Plans to proceed with a CT guided biopsy. We will check the alpha-fetoprotein and CEA. In light of the findings, final pathology of his colon lesion in 2014, I am less apt to consider colon cancer metastatic disease. The most likelihood is underlying hepatocellular cancer which looks in that way and imaging confirmed by radiology. Alpha-fetoprotein will help with the diagnosis. Additional imaging may be necessary to determine resectability. The lesion seems to be confined to the right lobe of the liver. He does not appear to have a history of liver disease. Underlying hepatitis will be ruled out. Iron studies will be checked. He has chronic microcytosis without anemia. 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 His questions were answered to his satisfaction. Abdi Viveros MD RAD/PAUL /7:00 PM /8:11 PM
[2016-09-05] VITALS (23 sets, daily range): BP systolic 108–149; BP diastolic 60–82; PULSE 60–118; RESP 16–20; TEMP 97.7–98.7; O2SAT 94–99
[2016-09-05] MEDS: DILTIAZEM INJ 125 MG in SODIUM CHLORIDE 0.9% INJ 100 ML IV SCH ×2 (01:30→07:38)
[2016-09-05 06:54] LABS: APTT (PATIENT) 25.2 SEC (24.3-30.1); PROTHROMBIN TIME - PATIENT 11.4 SEC (9.8-11.6)
[2016-09-05 07:16] LABS: BICARBONATE 29.3 MEQ/L (21.0-32.0); POTASSIUM 4.8 MEQ/L (3.5-5.1)
[2016-09-05] MEDS: TIOTROPIUM BROMIDE 18 MCG INH INH SCH (09:00)
[2016-09-05] MEDS ORDERED: METOPROLOL TARTRATE 100 MG TAB PO SCH (09:00)
[2016-09-05] MEDS ORDERED: FUROSEMIDE 40 MG/4 ML VIAL IV PUSH SCH (09:00)
[2016-09-05] MEDS ORDERED: ENOXAPARIN SODIUM 40 MG/0.4 ML SYRINGE SQ SCH (09:00)
[2016-09-05] MEDS ORDERED: ASPIRIN EC 81 MG TABEC PO SCH (09:00)
--- NOTE | 2016-09-05 09:27 | HHI.PR ---
Subjective Remarks sitting on the chair with no acute distress. looks slightly more comfortable and his sob has somewhat improved. still on cardizem drip. d/w the RN. Objective Vitals Vital Signs Date Time Temp Pulse Resp B/P Pulse Ox O2 Delivery O2 Flow Rate FiO2 09/05/16 07:40 97.8 108 18 149/69 95 09/05/16 06:00 109 09/05/16 05:00 101 09/05/16 04:00 95 09/05/16 03:00 97 09/05/16 03:00 98.7 97 16 142/82 99 09/05/16 02:00 92 09/05/16 01:00 89 09/05/16 00:00 97 09/04/16 23:00 117 09/04/16 23:00 98.9 117 18 138/91 96 09/04/16 19:01 97.6 115 20 159/76 94 09/04/16 19:00 112 09/04/16 18:00 108 09/04/16 17:15 97.8 105 20 135/73 95 09/04/16 17:00 112 09/04/16 15:08 54 20 144/64 91 Nasal Cannula 4 09/04/16 15:00 116 22 135/61 93 Nasal Cannula 3 09/04/16 14:45 118 09/04/16 14:33 127 27 160/69 95 Nasal Cannula 2 09/04/16 14:15 114 09/04/16 14:00 118 20 126/68 94 Nasal Cannula 3 09/04/16 13:30 122 09/04/16 13:00 132 22 138/62 95 Nasal Cannula 3 09/04/16 12:25 100 20 92 Nasal Cannula 2.5 09/04/16 12:25 116 16 136/75 98 Room Air 09/04/16 10:50 93 Nasal Cannula 2.50 09/04/16 10:50 93 Nasal Cannula 2.5 09/04/16 09:24 110 22 125/65 93 Nasal Cannula 2.5 I/O 09/04/16 09/04/16 09/04/16 09/05/16 09/05/16 09/05/16 07:00 15:00 23:00 07:00 15:00 23:00 Intake Total 630 ml Output Total 900 ml 825 ml Balance -900 ml -195 ml Intake Oral 480 ml IV Total 150 ml Output Urine Total 900 ml 825 ml # Voids 4 Result Diagram: 09/04/1635 09/05/16 0628 Imaging Last Impressions Chest X-Ray 09/04/1634 Signed Impressions: Service Date/Time: Sunday, September 04, 2016 09:57 - CONCLUSION: Stable radiographic appearance of the chest without acute abnormality demonstrated. There is no significant change in the large left apical mass. Claudio Buchanan MD Chest CT 09/04/16 0000 Signed Impressions: Service Date/Time: Sunday, September 04, 2016 11:30 - CONCLUSION: 1. Mild bibasilar atelectasis and a tiny, nonspecific right pleural effusion. 2. Large but stable, presumably benign left apical mass. 3. Mild quiroz chamber enlargement of the heart and diffuse coronary artery calcification. 4. Multinodular goiter , similar to prior studies. Claudio Buchanan MD Abdomen/Pelvis CT 09/04/16 Signed Impressions: Service Date/Time: Sunday, September 04, 2016 11:30 - CONCLUSION: 1. Large ill-defined mass inferiorly of the right hepatic lobe, malignant until proven otherwise. A metastasis is possible but given the large size and no other similar hepatic lesions, a primary hepatocellular carcinoma is thought to be more likely. Elsewhere in the liver numerous stable subcentimeter cysts are noted. 2. Interim colon resection. No recurrent mass, obstruction, inflammation or other acute abnormality seen of the GI tract. 3. Severe aortoiliac atherosclerosis without aneurysm. 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 5. Nonspecific heterogeneous enlargement of the prostate again noted. Claudio Buchanan MD Objective Remarks GENERAL: This is a well-nourished, well-developed patient, in no apparent distress. CARDIOVASCULAR: tachycardic with irregular rhythm without murmurs, gallops, or rubs. RESPIRATORY: Clear to auscultation. Breath sounds equal bilaterally. No wheezes , rales, or rhonchi. GASTROINTESTINAL: Abdomen soft, non-tender, nondistended. Normal, active bowel sounds MUSCULOSKELETAL: Extremities with bilateral pedal edema NEURO: Alert & Oriented x4 to person, place, time, situation. Moves all ext x4 Procedures none Medications and IVs Current Medications IV Flush (NS Flush) 2 ml UNSCH PRN IVF FLUSH AFTER USING IV ACCESS; Start at 09:45 Furosemide (Lasix Inj) 60 mg ONCE ONCE IVP Last administered on 09/04/16 10:33 ; Start 09/04/16 at 09:45; Stop 09/04/16 at 09:46; Status DC Diltiazem HCl (Cardizem Inj) 15 mg ONCE ONCE IV Last administered on 09/04/16 10:33; Start 09/04/16 at 10:30; Stop 09/04/16 at 10:31; Status DC Albuterol Sulfate (Albuterol Neb) 1.25 mg Q2HR NEB PRN NEB SHORTNESS OF BREATH ; Start 09/04/16 at 12:00 Iohexol 100 ml 100 ml STK-MED ONCE IV Last administered on 09/04/16 11:37; Start 09/04/16 at 11:37; Stop 09/04/16 at 11:38; Status DC Diltiazem HCl/ Sodium Chloride (Cardizem Inj/NS Inj) 125 ml @ 0 mls/hr TITRATE IV Last administered on 09/05/16 07:38; Start 09/04/16 at 13:15 Aspirin (Ecotrin Ec) 81 mg DAILY PO ; Start 09/05/16 at 09:00; Stop 09/05/16 at 09 :00; Status DC Metoprolol Tartrate (Lopressor) 100 mg DAILY PO ; Start 09/05/16 at 09:00 Temazepam (Restoril) 15 mg HS PRN PO INSOMNIA; Start 09/04/16 at 13:15 Tiotropium [place] (Spiriva Inh) 2 mcg DAILY INH AST; Start 09/05/16 at 09:00 Furosemide (Lasix Inj) 40 mg DAILY IV PUSH ; Start 09/05/16 at 09:00 Enoxaparin Sodium (Lovenox Inj) 40 mg Q24H SQ ; Start 09/05/16 at 09:00; Stop 09/05/16 at 09:00; Status DC A/P Assessment and Plan A/P - acute on chronic diastolic CHF continue with IV diuretics- I/O monitoring- monitor renal function closely- cardiology consult appreciated. -COPD - on home oxgen; continue with neb treatment- pulmonary consult appreciated. -atrial fibrillation with rapid ventricular response;continue metoprolol- will add po cardizem- will try to taper off the cardizem drip. will add aspirin after the planned procedure. -liver mass- suspicious for hepatocellular carcinoma- with history of colon cancer- oncology consult appreciated- IR consulted for CT-guided biopsy. -hypertension; resumed BB- will resume PO Cardizem . -hyponatremia due to fluid overload- improved- will monitor -acute kidney injury; will decrease lasix and will monitor the renal function. -left apical mass- stable -DVT prophylaxis with Lovenox Jose Duggan MD Sep 05, 2016 09:27
[2016-09-05] MEDS: DILTIAZEM HCL 30 MG TAB PO SCH ×4 (09:30→20:42)
--- NOTE | 2016-09-05 16:02 | PD.CARD.PN ---
Subjective Subjective Remarks alert in nad, feels better Objective Vital Signs / I&O Vital Signs Date Time Temp Pulse Resp B/P Pulse Ox O2 Delivery O2 Flow Rate FiO2 09/05/16 13:16 97 21 09/05/16 13:01 64 09/05/16 12:00 60 09/05/16 11:45 97.9 73 18 108/60 98 09/05/16 11:00 90 09/05/16 10:00 106 09/05/16 09:00 118 09/05/16 08:45 109 09/05/16 07:40 97.8 108 18 149/69 95 09/05/16 07:00 114 09/05/16 06:00 109 09/05/16 05:00 101 09/05/16 04:00 95 09/05/16 03:00 97 09/05/16 03:00 98.7 97 16 142/82 99 09/05/16 02:00 92 09/05/16 01:00 89 09/05/16 00:00 97 09/04/16 23:00 117 09/04/16 23:00 98.9 117 18 138/91 96 09/04/16 19:01 97.6 115 20 159/76 94 09/04/16 19:00 112 09/04/16 18:00 108 09/04/16 17:15 97.8 105 20 135/73 95 09/04/16 17:00 112 I/O 09/04/16 09/04/16 09/04/16 09/05/16 09/05/16 09/05/16 07:00 15:00 23:00 07:00 15:00 23:00 Intake Total 630 ml Output Total 900 ml 825 ml Balance -900 ml -195 ml Intake Oral 480 ml IV Total 150 ml Output Urine Total 900 ml 825 ml # Voids 4 Physical Exam GENERAL: SKIN: Warm and dry. HEAD: Normocephalic. EYES: No scleral icterus. No injection or drainage. NECK: Supple, trachea midline. No JVD or lymphadenopathy. CARDIOVASCULAR: Regular rate and rhythm without murmurs, gallops, or rubs. RESPIRATORY: Breath sounds equal bilaterally. No accessory muscle use. GASTROINTESTINAL: Abdomen soft, non-tender, nondistended. MUSCULOSKELETAL: No cyanosis, or edema. BACK: Nontender without obvious deformity. No CVA tenderness. Laboratory Laboratory Tests Test 09/05/16 06:28 Prothrombin Time 11.4 SEC Prothromb Time International 1.0 RATIO Ratio Activated Partial 25.2 SEC Thromboplast Time Sodium Level 131 MEQ/L Potassium Level 4.8 MEQ/L Chloride Level 93 MEQ/L Carbon Dioxide Level 29.3 MEQ/L Anion Gap 9 MEQ/L Blood Urea Nitrogen 35 MG/DL Creatinine 1.35 MG/DL Estimat Glomerular Filtration 50 ML/MIN Rate Random Glucose 370 MG/DL Calcium Level 9.7 MG/DL Ferritin 1747 NG/ML Tumor Marker Alpha Fetoprotein 0.7 NG/ML Carcinoembryonic Antigen 444.1 NG/ML Hepatitis A IgM Antibody NEGATIVE Hepatitis B Surface Antigen NEGATIVE Hepatitis B Core IgM Antibody NEGATIVE Hepatitis C Antibody NEGATIVE Assessment and Plan Problem List: (1) Atrial fibrillation (2) Liver mass Assessment and Plan af - rate controlled, continue aspirin, rec coumadin or noac but patient refuses ; f/u oncology recs Milo Grewal MD Sep 05, 2016 16:02
[2016-09-05] MEDS: TEMAZEPAM 15 MG CAP PO PRN (20:42)
[2016-09-06] VITALS (34 sets, daily range): BP systolic 112–158; BP diastolic 66–92; PULSE 79–128; RESP 18–22; TEMP 97.6–98.5; O2SAT 94–97
[2016-09-06 07:02] LABS: BICARBONATE 26.4 MEQ/L (21.0-32.0); POTASSIUM 4.9 MEQ/L (3.5-5.1)
--- NOTE | 2016-09-06 08:28 | HHI.PR ---
Subjective Remarks in no acute distress. still tachycardic. no chest pain. awaiting liver biopsy. d/w the RN. Objective Vitals Vital Signs Date Time Temp Pulse Resp B/P Pulse Ox O2 Delivery O2 Flow Rate FiO2 09/06/16 06:00 101 09/06/16 05:00 95 09/06/16 04:00 94 09/06/16 03:00 98.5 99 20 146/89 94 09/06/16 03:00 104 09/06/16 02:00 87 09/06/16 01:00 88 09/06/16 00:00 91 09/06/16 00:00 98.5 95 20 155/92 94 09/05/16 23:00 95 09/05/16 22:00 90 09/05/16 21:00 86 09/05/16 20:00 98.3 87 20 139/73 94 09/05/16 20:00 84 09/05/16 19:00 92 09/05/16 15:30 97.7 87 18 129/62 99 09/05/16 13:16 97 21 09/05/16 13:01 64 09/05/16 12:00 60 09/05/16 11:45 97.9 73 18 108/60 98 09/05/16 11:00 90 09/05/16 10:00 106 09/05/16 09:00 118 09/05/16 08:45 109 I/O 09/05/16 09/05/16 09/05/16 09/06/16 09/06/16 09/06/16 07:00 15:00 23:00 07:00 15:00 23:00 Intake Total 630 ml 240 ml Output Total 825 ml 400 ml Balance -195 ml -160 ml Intake Oral 480 ml 240 ml IV Total 150 ml Output Urine Total 825 ml 400 ml # Voids 2 # Bowel Movements 2 Result Diagram: 09/04/1635 09/06/1610 Imaging Last Impressions Chest X-Ray 09/04/1634 Signed Impressions: Service Date/Time: Sunday, September 04, 2016 09:57 - CONCLUSION: Stable radiographic appearance of the chest without acute abnormality demonstrated. There is no significant change in the large left apical mass. Claudio Buchanan MD Chest CT 09/04/16 0000 Signed Impressions: Service Date/Time: Sunday, September 04, 2016 11:30 - CONCLUSION: 1. Mild bibasilar atelectasis and a tiny, nonspecific right pleural effusion. 2. Large but stable, presumably benign left apical mass. 3. Mild quiroz chamber enlargement of the heart and diffuse coronary artery calcification. 4. Multinodular goiter , similar to prior studies. Claudio Buchanan MD Abdomen/Pelvis CT 09/04/16 0000 Signed Impressions: Service Date/Time: Sunday, September 04, 2016 11:30 - CONCLUSION: 1. Large ill-defined mass inferiorly of the right hepatic lobe, malignant until proven otherwise. A metastasis is possible but given the large size and no other similar hepatic lesions, a primary hepatocellular carcinoma is thought to be more likely. Elsewhere in the liver numerous stable subcentimeter cysts are noted. 2. Interim colon resection. No recurrent mass, obstruction, inflammation or other acute abnormality seen of the GI tract. 3. Severe aortoiliac atherosclerosis without aneurysm. 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 5. Nonspecific heterogeneous enlargement of the prostate again noted. Claudio Buchanan MD Objective Remarks GENERAL: in no acute distress. CARDIOVASCULAR: tachycardic with irregular rhythm without murmurs, gallops, or rubs. RESPIRATORY: diminished air entry in bases. GASTROINTESTINAL: Abdomen soft, non-tender, nondistended. Normal, active bowel sounds MUSCULOSKELETAL: Extremities with bilateral pedal edema NEURO: Alert & Oriented x4 to person, place, time, situation. Moves all ext x4 Procedures none Medications and IVs Current Medications IV Flush (NS Flush) 2 ml UNSCH PRN IVF FLUSH AFTER USING IV ACCESS; Start at 09:45 Furosemide (Lasix Inj) 60 mg ONCE ONCE IVP Last administered on 09/04/16 10:33 ; Start 09/04/16 at 09:45; Stop 09/04/16 at 09:46; Status DC Diltiazem HCl (Cardizem Inj) 15 mg ONCE ONCE IV Last administered on 09/04/16 10:33; Start 09/04/16 at 10:30; Stop 09/04/16 at 10:31; Status DC Albuterol Sulfate (Albuterol Neb) 1.25 mg Q2HR NEB PRN NEB SHORTNESS OF BREATH ; Start 09/04/16 at 12:00 Iohexol 100 ml 100 ml STK-MED ONCE IV Last administered on 09/04/16 11:37; Start 09/04/16 at 11:37; Stop 09/04/16 at 11:38; Status DC Diltiazem HCl/ Sodium Chloride (Cardizem Inj/NS Inj) 125 ml @ 0 mls/hr TITRATE IV Last administered on 09/05/16 07:38; Start 09/04/16 at 13:15; Stop 09/05/16 at 12:42; Status DC Aspirin (Ecotrin Ec) 81 mg DAILY PO ; Start 09/05/16 at 09:00; Stop 09/05/16 at 09 :00; Status DC Metoprolol Tartrate (Lopressor) 100 mg DAILY PO Last administered on 09/05/16 10:00; Start 09/05/16 at 09:00 Temazepam (Restoril) 15 mg HS PRN PO INSOMNIA Last administered on 09/05/16 20: 42; Start 09/04/16 at 13:15 Tiotropium [place] (Spiriva Inh) 2 mcg DAILY INH AST; Start 09/05/16 at 09:00 Furosemide (Lasix Inj) 40 mg DAILY IV PUSH ; Start 09/05/16 at 09:00; Stop at 09:29; Status DC Enoxaparin Sodium (Lovenox Inj) 40 mg Q24H SQ ; Start 09/05/16 at 09:00; Stop 09/05/16 at 09:00; Status DC Furosemide (Lasix Inj) 20 mg DAILY IV PUSH ; Start 09/06/16 at 09:00 Diltiazem HCl (Cardizem) 30 mg QID PO Last administered on 09/05/16 20:42; Start 09/05/16 at 09:30 A/P Assessment and Plan A/P - acute on chronic diastolic CHF continue with IV diuretics- I/O monitoring- monitor renal function closely- cardiology following. -COPD - on home oxgen; continue Spiriva- continue with neb treatment- pulmonary consult appreciated. -atrial fibrillation with rapid ventricular response;continue metoprolol; will change metoprolol to 50 mg bid- continue po cardizem- continue to monitor and adjust the regimen as needed. will add aspirin after the planned procedure. -liver mass- suspicious for hepatocellular carcinoma- with history of colon cancer- oncology consult appreciated- IR consulted for CT-guided biopsy; possible today. -hypertension; resumed BB- will resume PO Cardizem . -hyponatremia due to fluid overload- improved- will monitor -acute kidney injury; improved- will monitor. -left apical mass- stable -DVT prophylaxis with Lovenox ( on hold for planned procedure). Jose Duggan MD Sep 06, 2016 08:28
[2016-09-06] MEDS: METOPROLOL TARTRATE 100 MG TAB PO SCH ×2 (08:50→21:04)
[2016-09-06] MEDS: DILTIAZEM HCL 30 MG TAB PO SCH ×4 (08:50→21:04)
[2016-09-06] MEDS: FUROSEMIDE 20 MG/2 ML VIAL IV PUSH SCH (08:51)
--- NOTE | 2016-09-06 08:53 | PD.CARD.PN ---
Subjective Subjective Remarks alert in nad Objective Vital Signs / I&O Vital Signs Date Time Temp Pulse Resp B/P Pulse Ox O2 Delivery O2 Flow Rate FiO2 09/06/16 06:00 101 09/06/16 05:00 95 09/06/16 04:00 94 09/06/16 03:00 98.5 99 20 146/89 94 09/06/16 03:00 104 09/06/16 02:00 87 09/06/16 01:00 88 09/06/16 00:00 91 09/06/16 00:00 98.5 95 20 155/92 94 09/05/16 23:00 95 09/05/16 22:00 90 09/05/16 21:00 86 09/05/16 20:00 98.3 87 20 139/73 94 09/05/16 20:00 84 09/05/16 19:00 92 09/05/16 15:30 97.7 87 18 129/62 99 09/05/16 13:16 97 21 09/05/16 13:01 64 09/05/16 12:00 60 09/05/16 11:45 97.9 73 18 108/60 98 09/05/16 11:00 90 09/05/16 10:00 106 09/05/16 09:00 118 I/O 09/05/16 09/05/16 09/05/16 09/06/16 09/06/16 09/06/16 07:00 15:00 23:00 07:00 15:00 23:00 Intake Total 630 ml 240 ml Output Total 825 ml 400 ml Balance -195 ml -160 ml Intake Oral 480 ml 240 ml IV Total 150 ml Output Urine Total 825 ml 400 ml # Voids 2 # Bowel Movements 2 Physical Exam GENERAL: SKIN: Warm and dry. HEAD: Normocephalic. EYES: No scleral icterus. No injection or drainage. NECK: Supple, trachea midline. No JVD or lymphadenopathy. CARDIOVASCULAR: Regular rate and rhythm without murmurs, gallops, or rubs. RESPIRATORY: Breath sounds equal bilaterally. No accessory muscle use. GASTROINTESTINAL: Abdomen soft, non-tender, nondistended. MUSCULOSKELETAL: No cyanosis, or edema. BACK: Nontender without obvious deformity. No CVA tenderness. Laboratory Laboratory Tests Test 09/06/16 06:10 Sodium Level 131 MEQ/L Potassium Level 4.9 MEQ/L Chloride Level 93 MEQ/L Carbon Dioxide Level 26.4 MEQ/L Anion Gap 12 MEQ/L Blood Urea Nitrogen 31 MG/DL Creatinine 0.93 MG/DL Estimat Glomerular Filtration 77 ML/MIN Rate Random Glucose 217 MG/DL Calcium Level 9.6 MG/DL Assessment and Plan Problem List: (1) Atrial fibrillation (2) Liver mass Assessment and Plan af - rate controlled, continue aspirin, rec coumadin or noac but patient refuses ; f/u oncology recs Milo Grewal MD Sep 06, 2016 08:53
[2016-09-06] MEDS ORDERED: ONDANSETRON HCL 4 MG/2 ML VIAL ONE (09:29)
[2016-09-06] MEDS ORDERED: LIDOCAINE 1%/EPINEPHrine 1:100,000 SOLN 20 ML VIAL ONE (10:59)
--- NOTE | 2016-09-06 11:08 | PD.ONC.PN ---
Subjective Subjective Remarks Afebrile overnight. Getting ready to go to CT for biopsy. He is nervous but otherwise without complaint. No pain. Objective Data Date Time Temp Pulse Resp B/P Pulse Ox O2 Delivery O2 Flow Rate FiO2 09/06/16 10:01 90 09/06/16 09:18 97 2.50 09/06/16 09:00 128 09/06/16 08:15 98.0 116 18 158/88 95 09/06/16 07:00 98 09/06/16 06:00 101 09/06/16 05:00 95 09/06/16 04:00 94 09/06/16 03:00 98.5 99 20 146/89 94 09/06/16 03:00 104 09/06/16 02:00 87 09/06/16 01:00 88 09/06/16 00:00 91 09/06/16 00:00 98.5 95 20 155/92 94 09/05/16 23:00 95 09/05/16 22:00 90 09/05/16 21:00 86 09/05/16 20:00 98.3 87 20 139/73 94 09/05/16 20:00 84 09/05/16 19:00 92 09/05/16 15:30 97.7 87 18 129/62 99 09/05/16 13:16 97 21 09/05/16 13:01 64 09/05/16 12:00 60 09/05/16 11:45 97.9 73 18 108/60 98 09/06/16 09/06/16 09/06/16 07:00 15:00 23:00 Intake Total 240 ml Output Total 400 ml Balance -160 ml Result Diagram: 09/04/16 0935 09/06/16 0610 Laboratory Results Laboratory Tests Test 09/06/16 06:10 Sodium Level 131 MEQ/L Potassium Level 4.9 MEQ/L Chloride Level 93 MEQ/L Carbon Dioxide Level 26.4 MEQ/L Anion Gap 12 MEQ/L Blood Urea Nitrogen 31 MG/DL Creatinine 0.93 MG/DL Estimat Glomerular Filtration 77 ML/MIN Rate Random Glucose 217 MG/DL Calcium Level 9.6 MG/DL Administered Medications Medications (Trade) Dose Ordered Sig/[place] Route PRN Reason Start Time Stop Time Status Last Admin Dose Admin Temazepam (Restoril) 15 mg HS PRN PO INSOMNIA 09/04/16 13:15 3/9/17 20:42 Furosemide (Lasix Inj) 20 mg DAILY IV PUSH 09/06/16 09:00 09/06/16 08:51 Diltiazem HCl (Cardizem) 30 mg QID PO 09/05/16 09:30 09/06/16 08:50 Metoprolol Tartrate (Lopressor) 50 mg BID PO 09/06/16 09:00 09/06/16 08:50 Objective Remarks GENERAL: Elderly male, lying on stretcher in nad. SKIN: Warm and dry. HEAD: Normocephalic. EYES: No injection or drainage. NECK: Supple, trachea midline. CARDIOVASCULAR: +S1/S2 RESPIRATORY: Breath sounds equal bilaterally. No accessory muscle use. GASTROINTESTINAL: Abdomen soft, non-tender, nondistended. EXTREMITIES: No cyanosis NEUROLOGICAL: awake and alert, normal speech. moving extremities. Assessment/Plan Problem List: (1) Liver mass Status: Acute Plan: --CT liver biopsy 09/06, await pathology --CT C/A/P--revealed a right liver mass. concerning for primary hepatocellular cancer versus a metastatic disease. --AFP WNL --2015--> right colon cecum, terminal ileum resected. right hemicolectomy. + fibrous serosal adhesion. +right colon and cecum showed tubular adenomas, nine pericolic lymph nodes were negative for tumor. Omentum was checked and was negative for malignancy. Assessment 86y/o with history of colon cancer and new right liver mass. h/o Colon resection without invasive malignancy. Liver mass. COPD. Atrial fibrillation with rapid ventricular response. Congestive heart failure. COPD. Hypertension. Left upper lung schwannoma. Plan 1. CT liver biopsy today 2. fs faxed to npr for follow up upon discharge. Attending Statement The exam, history, and the medical decision-making described in the above note were completed with the assistance of the mid-level provider. I reviewed and agree with the findings presented. I attest that I had a [id number] encounter with the patient on the same day, and personally performed and documented my assessment and findings in the medical record. Rehana Mancuso Sep 06, 2016 11:07 Jayy Pinto MD Sep 06, 2016 23:39
[2016-09-06] MEDS ORDERED: fentaNYL CITRATE 250 MCG/5 ML AMP ONE (11:17)
[2016-09-06] MEDS ORDERED: MIDAZOLAM HCL 5 MG/5 ML VIAL ONE (11:17)
[2016-09-06] MEDS ORDERED: HYDROmorphone HCL 2 MG TAB PO PRN (12:45)
--- NOTE | 2016-09-06 15:35 | RADRPT ---
EXAM DATE/TIME: 09/06/2016 11:21 [place] COMPARISON: CT ABDOMEN & PELVIS W CONTRAST, September 04, 2016, 11:30. INDICATIONS : Right lobe liver mass. SEDATION TIME: 30 minutes BIOPSY SITE: Right liver MEDICATION(S): 1.) 1 mg midazolam (Versed) IV 2.) 100 mcg fentanyl (Sublimaze) IV DEVICE(S): 1.) 17 gauge Coaxial 10cm 2.) 18 Fr Temno core biopsy needle 15cm MEDICAL HISTORY : Carcinoma, colon. Congestive heart failure. SURGICAL HISTORY : Appendectomy. Colon resection. ENCOUNTER: Initial ACUITY: 1 day PAIN SCORE: 0/10 LOCATION: Right upper quadrant A total of three core specimen(s) were obtained and sent to the laboratory for pathologic evaluation. PROCEDURE: 1. CT guided liver biopsy. 2. Conscious sedation with continuous EKG and oximetry monitoring. Prior to the procedure informed consent was obtained. Any appropriate prior imaging studies were rev iewed. Using automated exposure control and adjustment of the mA and/or kV according to patient size, radiat ion dose was kept as low as reasonably achievable to obtain optimal diagnostic quality images.The sit e was prepped in a sterile fashion. Full sterile technique was used, including cap, mask, sterile gl oves and gown and a large sterile sheet. Hand hygiene and 2% chlorhexidine and/or betadine/alcohol p rep was utilized per protocol for cutaneous antisepsis. The skin and subcutaneous tissues were infil trated with local anesthetic solution. With CT guidance the right lobe liver mass was localized. Biopsy was performed using the prescribed n eedle as above. Adequate hemostasis was obtained with compression at the puncture site. Follow-up CT scan reveals no hemorrhage or acute abnormality. The patient tolerated the procedure well and there were no complications. The patient was returned to the Radiology Outpatient Unit in stable condition. CONCLUSION: Uncomplicated CT guided biopsy of the right lobe liver mass. Claudio Donohue MD on September 06, 2016 at 15:28 Board Certified Radiologist. This report was verified electronically.
[2016-09-06] MEDS ORDERED: METOLAZONE 5 MG TAB PO ONE (16:30)
[2016-09-06] MEDS: RESP: ALBUTEROL 2.5 MG/IPRATROPIUM 0.5 MG NEB (SCH) INH (20:09)
[2016-09-06] MEDS: TEMAZEPAM 15 MG CAP PO PRN (21:04)
[2016-09-07] VITALS (25 sets, daily range): BP systolic 108–140; BP diastolic 69–92; PULSE 62–148; RESP 18–22; TEMP 97.9–98.6; O2SAT 94–97
[2016-09-07] MEDS: RESP: ALBUTEROL 2.5 MG/IPRATROPIUM 0.5 MG NEB (SCH) INH ×2 (07:19→20:44)
--- NOTE | 2016-09-07 08:10 | HHI.PR ---
Subjective Remarks sob has improved. but looks and feels weak. Objective Vitals Vital Signs Date Time Temp Pulse Resp B/P Pulse Ox O2 Delivery O2 Flow Rate FiO2 09/07/16 07:20 97 Nasal Cannula 18.00 09/06/16 20:10 95 Nasal Cannula 2.00 09/06/16 19:00 98.0 95 129/86 96 09/06/16 18:00 98 09/06/16 17:01 96 09/06/16 16:01 86 09/06/16 15:32 94 116/66 09/06/16 15:15 98.1 92 20 116/66 97 09/06/16 15:00 94 09/06/16 14:32 92 112/76 09/06/16 14:01 97 116/81 09/06/16 14:00 92 09/06/16 13:46 87 123/82 09/06/16 13:30 92 128/82 09/06/16 13:16 90 141/91 09/06/16 13:00 88 09/06/16 13:00 86 128/86 09/06/16 12:30 88 123/82 09/06/16 12:15 83 136/83 09/06/16 12:15 97.8 83 18 136/83 97 09/06/16 12:00 92 09/06/16 10:01 90 09/06/16 09:18 97 2.50 09/06/16 09:00 128 09/06/16 08:15 98.0 116 18 158/88 95 I/O 09/06/16 09/06/16 09/06/16 09/07/16 09/07/16 09/07/16 07:00 15:00 23:00 07:00 15:00 23:00 Intake Total 240 ml 480 ml 240 ml Output Total 400 ml 775 ml 350 ml Balance -160 ml -295 ml -110 ml Intake Oral 240 ml 480 ml 240 ml Output Urine Total 400 ml 775 ml 350 ml # Voids 2 4 # Bowel Movements 2 1 Result Diagram: 09/04/16 0935 09/06/16 0610 Imaging Last Impressions Liver Biopsy CT 09/06/16 0900 Signed Impressions: Service Date/Time: Tuesday, September 06, 2016 11:21 - CONCLUSION: Uncomplicated CT guided biopsy of the right lobe liver mass. Claudio Donohue MD Chest X-Ray 09/04/16 0934 Signed Impressions: Service Date/Time: Sunday, September 04, 2016 09:57 - CONCLUSION: Stable radiographic appearance of the chest without acute abnormality demonstrated. There is no significant change in the large left apical mass. Claudio Buchanan MD Chest CT 09/04/16 0000 Signed Impressions: Service Date/Time: Sunday, September 04, 2016 11:30 - CONCLUSION: 1. Mild bibasilar atelectasis and a tiny, nonspecific right pleural effusion. 2. Large but stable, presumably benign left apical mass. 3. Mild quiroz chamber enlargement of the heart and diffuse coronary artery calcification. 4. Multinodular goiter , similar to prior studies. Claudio Buchanan MD Abdomen/Pelvis CT 09/04/16 0000 Signed Impressions: Service Date/Time: Sunday, September 04, 2016 11:30 - CONCLUSION: 1. Large ill-defined mass inferiorly of the right hepatic lobe, malignant until proven otherwise. A metastasis is possible but given the large size and no other similar hepatic lesions, a primary hepatocellular carcinoma is thought to be more likely. Elsewhere in the liver numerous stable subcentimeter cysts are noted. 2. Interim colon resection. No recurrent mass, obstruction, inflammation or other acute abnormality seen of the GI tract. 3. Severe aortoiliac atherosclerosis without aneurysm. 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 5. Nonspecific heterogeneous enlargement of the prostate again noted. Claudio Buchanan MD Objective Remarks GENERAL: in no acute distress. CARDIOVASCULAR: tachycardic with irregular rhythm without murmurs, gallops, or rubs. RESPIRATORY: diminished air entry in bases. GASTROINTESTINAL: Abdomen soft, non-tender, nondistended. Normal, active bowel sounds MUSCULOSKELETAL: Extremities with bilateral pedal edema NEURO: Alert & Oriented x4 to person, place, time, situation. Moves all ext x4 Procedures liver biopsy Medications and IVs Current Medications IV Flush (NS Flush) 2 ml UNSCH PRN IVF FLUSH AFTER USING IV ACCESS; Start at 09:45 Furosemide (Lasix Inj) 60 mg ONCE ONCE IVP Last administered on 09/04/16t 10:33 ; Start 09/04/16 at 09:45; Stop 09/04/16 at 09:46; Status DC Diltiazem HCl (Cardizem Inj) 15 mg ONCE ONCE IV Last administered on 09/04/16 10:33; Start 09/04/16 at 10:30; Stop 09/04/16 at 10:31; Status DC Albuterol Sulfate (Albuterol Neb) 1.25 mg Q2HR NEB PRN NEB SHORTNESS OF BREATH ; Start 09/04/16 at 12:00 Iohexol 100 ml 100 ml STK-MED ONCE IV Last administered on 09/04/16 11:37; Start 09/04/16 at 11:37; Stop 09/04/16 at 11:38; Status DC Diltiazem HCl/ Sodium Chloride (Cardizem Inj/NS Inj) 125 ml @ 0 mls/hr TITRATE IV Last administered on 09/05/16 07:38; Start 09/04/16 at 13:15; Stop 09/05/16 at 12:42; Status DC Aspirin (Ecotrin Ec) 81 mg DAILY PO ; Start 09/05/16 at 09:00; Stop 09/05/16 at 09 :00; Status DC Metoprolol Tartrate (Lopressor) 100 mg DAILY PO Last administered on 09/05/16 10:00; Start 09/05/16 at 09:00; Stop 09/06/16 at 08:25; Status DC Temazepam (Restoril) 15 mg HS PRN PO INSOMNIA Last administered on 09/06/16 21 :04; Start 09/04/16 at 13:15 Tiotropium [place] (Spiriva Inh) 2 mcg DAILY INH AST Last administered on 09:00; Start 09/05/16 at 09:00 Furosemide (Lasix Inj) 40 mg DAILY IV PUSH ; Start 09/05/16 at 09:00; Stop at 09:29; Status DC Enoxaparin Sodium (Lovenox Inj) 40 mg Q24H SQ ; Start 09/05/16 at 09:00; Stop 09/05/16 at 09:00; Status DC Furosemide (Lasix Inj) 20 mg DAILY IV PUSH Last administered on 09/06/16 08:51 ; Start 09/06/16 at 09:00 Diltiazem HCl (Cardizem) 30 mg QID PO Last administered on 09/06/16 21:04; Start 09/05/16 at 09:30 Metoprolol Tartrate (Lopressor) 50 mg BID PO Last administered on 09/06/16 21: 04; Start 09/06/16 at 09:00 Ondansetron HCl (Zofran Inj) 4 mg STK-MED ONCE .ROUTE ; Start 09/06/16 at 09:29 ; Stop 09/06/16 at 09:30; Status DC Lidocaine/ Epinephrine (Xylocaine-Epi 1%-1:100,000 Inj) 20 ml STK-MED ONCE .ROUTE Last administered on 09/06/16 10:59; Start 09/06/16 at 10:59; Stop 04/15 at 11:00; Status DC Midazolam HCl (Versed Inj) 5 mg STK-MED ONCE .ROUTE Last administered on 11:17; Start 09/06/16 at 11:17; Stop 09/06/16 at 11:18; Status DC Fentanyl Citrate (fentaNYL INJ) 250 mcg STK-MED ONCE .ROUTE Last administered on 09/06/16 11:17; Start 09/06/16 at 11:17; Stop 09/06/16 at 11:18; Status DC Hydromorphone HCl (Dilaudid) 1 mg Q6H PRN PO PAIN SCALE 1 TO 10; Start at 12:45 Albuterol/ Ipratropium (Duoneb Neb) 1 ampule BID NEB INH Last administered on 09/07/16 07:19; Start 09/06/16 at 20:00 Metolazone (Zaroxolyn) 5 mg ONCE ONCE PO ; Start 09/06/16 at 16:30; Stop at 16:50; Status DC A/P Assessment and Plan A/P - acute on chronic diastolic CHF continue with IV diuretics- I/O monitoring- monitor renal function closely- cardiology following. -COPD - on home oxgen; continue Spiriva- continue with neb treatment- pulmonary consult appreciated. -atrial fibrillation with rapid ventricular response;continue metoprolol and po cardizem- continue to monitor and adjust the regimen as needed. will add aspirin upon discharge. -liver mass- suspicious for hepatocellular carcinoma- with history of colon cancer- oncology consult appreciated- s/p liver biopsy- will follow the pathology. -hypertension; resumed BB and Cardizem . -hyponatremia due to fluid overload- improved- will monitor -acute kidney injury; improved- will monitor. -left apical mass- stable -DVT prophylaxis with Lovenox ( on hold for planned procedure). -consult PT. Discharge Planning will consult case management for possible rehab. expected to be discharged early this week if stable. Jose Duggan MD Sep 07, 2016 08:10
[2016-09-07] MEDS: FUROSEMIDE 20 MG/2 ML VIAL IV PUSH SCH (08:50)
[2016-09-07] MEDS: METOPROLOL TARTRATE 100 MG TAB PO SCH ×2 (08:50→20:22)
[2016-09-07] MEDS: DILTIAZEM HCL 30 MG TAB PO SCH ×2 (08:50→13:07)
[2016-09-07] MEDS: TIOTROPIUM BROMIDE 18 MCG INH INH SCH (08:51)
[2016-09-07] MEDS: SODIUM CHLORIDE 0.9% FLUSH 5 ML FLUSH IVF PRN ×2 (08:52→20:22)
--- NOTE | 2016-09-07 11:27 | PQ ---
Physician Query Response Document PATIENT: WESTON WEISS : 1930 ADMIT DATE: 09/04/2016 11:20 AM DISCH DATE: RESPONDING PROVIDER #: [email or web address] QUERY TEXT: Conflicting Documentation Clarification A single mention or documentation of multiple diagnoses for the same clinical presentation appears in the record. Please clarify the diagnosis/diagnoses regarding ACUTE ON CHRONIC DIASTOLIC CONGESTIVE HEART FAILURE Please also document if the condition is: -- Confirmed and current -- Confirmed, treated and resolved -- Ruled out -- Other, please specify PLEASE CALL MARGY IN [facility] @ EXT [id number] FOR ASSISTANCE The patient's Clinical Indicators include: PER H Assessment and Plan - acute on chronic diastolic CHF continue with IV diuretics- I/O monitoring- monitor renal function closely- consult cardiology. PER CARDIOLOGY CONSULT: At this point in time the patient does not have any evidence of congestive heart failure BNP=46 ON 09/04/16 Query created by: Margy Frey on 09/06/2016 10:22 AM RESPONSE TEXT: Confirmed and current. Electronically signed by: Jose Duggan MD 09/07/2016 11:23 AM
--- NOTE | 2016-09-07 13:29 | HHI.PR ---
Subjective Remarks pt denies chest pain and SOB Objective Vital Signs Date Time Temp Pulse Resp B/P Pulse Ox O2 Delivery O2 Flow Rate FiO2 09/07/16 13:02 75 09/07/16 12:02 93 09/07/16 12:02 98.2 94 18 138/88 97 09/07/16 10:09 126 09/07/16 09:00 148 09/07/16 08:30 137 09/07/16 07:55 100 09/07/16 07:55 98.6 103 18 140/92 96 09/07/16 07:20 97 Nasal Cannula 18.00 09/07/16 06:00 98 09/07/16 05:00 94 09/07/16 04:00 90 09/07/16 03:00 98.3 87 22 120/84 94 09/07/16 03:00 103 09/07/16 02:00 80 09/07/16 01:00 84 09/07/16 00:00 72 09/06/16 23:00 81 09/06/16 23:00 97.6 79 22 127/92 96 09/06/16 22:00 80 09/06/16 21:00 96 09/06/16 20:10 95 Nasal Cannula 2.00 09/06/16 20:00 98 09/06/16 19:00 98.0 95 129/86 96 09/06/16 19:00 103 09/06/16 18:00 98 09/06/16 17:01 96 09/06/16 16:01 86 09/06/16 15:32 94 116/66 09/06/16 15:15 98.1 92 20 116/66 97 09/06/16 15:00 94 09/06/16 14:32 92 112/76 09/06/16 14:01 97 116/81 09/06/16 14:00 92 09/06/16 13:46 87 123/82 09/06/16 13:30 92 128/82 I/O 09/06/16 09/06/16 09/06/16 09/07/16 09/07/16 09/07/16 07:00 15:00 23:00 07:00 15:00 23:00 Intake Total 240 ml 480 ml 240 ml Output Total 400 ml 775 ml 350 ml Balance -160 ml -295 ml -110 ml Intake Oral 240 ml 480 ml 240 ml Output Urine Total 400 ml 775 ml 350 ml # Voids 2 4 # Bowel Movements 2 1 vss chest: cta heart: S1,S2,AFIB ABD: ST EXT: +2 edema Result Diagram: 09/04/16 0935 09/06/16 0610 Assessment and Plan Assessment and Plan increase CCB for better rate control. on ASA , Pt refused Coumadin. I will follow Pam Torres MD Sep 07, 2016 13:29
[2016-09-07] MEDS: DILTIAZEM HCL 60 MG TAB PO SCH ×2 (18:22→20:21)
[2016-09-07] MEDS: TEMAZEPAM 15 MG CAP PO PRN (20:22)
[2016-09-08] VITALS (26 sets, daily range): BP systolic 108–149; BP diastolic 67–93; PULSE 60–118; RESP 18–20; TEMP 97.9–98.3; O2SAT 94–97
[2016-09-08] MEDS: RESP: ALBUTEROL 2.5 MG/IPRATROPIUM 0.5 MG NEB (SCH) INH ×2 (07:58→20:32)
[2016-09-08] MEDS: DILTIAZEM HCL 60 MG TAB PO SCH ×4 (08:39→21:13)
[2016-09-08] MEDS: METOPROLOL TARTRATE 100 MG TAB PO SCH ×2 (08:39→21:14)
[2016-09-08] MEDS: TIOTROPIUM BROMIDE 18 MCG INH INH SCH (08:40)
[2016-09-08] MEDS: SODIUM CHLORIDE 0.9% FLUSH 5 ML FLUSH IVF PRN ×2 (08:40→21:13)
[2016-09-08] MEDS: FUROSEMIDE 20 MG/2 ML VIAL IV PUSH SCH (08:40)
--- NOTE | 2016-09-08 08:49 | HHI.PR ---
Subjective Remarks looks more comfortable today. sob and leg edema has improved. denies pain. d/w the RN and no acute issues over night. Objective Vitals Vital Signs Date Time Temp Pulse Resp B/P Pulse Ox O2 Delivery O2 Flow Rate FiO2 09/08/16 08:22 109 09/08/16 07:59 96 Nasal Cannula 2.00 09/08/16 07:30 97.9 99 20 127/91 95 09/08/16 07:30 88 09/08/16 06:00 91 09/08/16 05:00 93 09/08/16 04:00 98.0 90 18 149/93 97 09/08/16 02:00 80 09/08/16 01:00 80 09/08/16 00:00 98.0 87 18 133/83 94 09/07/16 23:00 82 09/07/16 22:00 84 09/07/16 21:00 78 09/07/16 20:44 96 Nasal Cannula 2.00 09/07/16 20:00 78 09/07/16 19:00 97.9 79 18 108/69 95 09/07/16 19:00 79 09/07/16 18:16 85 09/07/16 17:22 88 09/07/16 16:23 84 09/07/16 15:45 98.4 85 20 123/85 95 09/07/16 15:45 85 09/07/16 14:12 62 09/07/16 13:02 75 09/07/16 12:02 93 09/07/16 12:02 98.2 94 18 138/88 97 09/07/16 10:09 126 09/07/16 09:00 148 I/O 09/07/16 09/07/16 09/07/16 09/08/16 09/08/16 09/08/16 07:00 15:00 23:00 07:00 15:00 23:00 Intake Total 240 ml 640 ml 480 ml Output Total 350 ml 100 ml 450 ml Balance -110 ml 540 ml 30 ml Intake Oral 240 ml 640 ml 480 ml Output Urine Total 350 ml 100 ml 450 ml # Voids 2 # Bowel Movements 2 0 Result Diagram: 09/04/1635 09/06/16 06 Imaging Last Impressions Liver Biopsy CT 09/06/16 09 Signed Impressions: Service Date/Time: Tuesday, September 06, 2016 11:21 - CONCLUSION: Uncomplicated CT guided biopsy of the right lobe liver mass. Claudio Donohue MD Chest X-Ray 09/04/16 0934 Signed Impressions: Service Date/Time: Sunday, September 04, 2016 09:57 - CONCLUSION: Stable radiographic appearance of the chest without acute abnormality demonstrated. There is no significant change in the large left apical mass. Claudio Buchanan MD Chest CT 09/04/16 0000 Signed Impressions: Service Date/Time: Sunday, September 04, 2016 11:30 - CONCLUSION: 1. Mild bibasilar atelectasis and a tiny, nonspecific right pleural effusion. 2. Large but stable, presumably benign left apical mass. 3. Mild quiroz chamber enlargement of the heart and diffuse coronary artery calcification. 4. Multinodular goiter , similar to prior studies. Claudio Buchanan MD Abdomen/Pelvis CT 09/04/16 0000 Signed Impressions: Service Date/Time: Sunday, September 04, 2016 11:30 - CONCLUSION: 1. Large ill-defined mass inferiorly of the right hepatic lobe, malignant until proven otherwise. A metastasis is possible but given the large size and no other similar hepatic lesions, a primary hepatocellular carcinoma is thought to be more likely. Elsewhere in the liver numerous stable subcentimeter cysts are noted. 2. Interim colon resection. No recurrent mass, obstruction, inflammation or other acute abnormality seen of the GI tract. 3. Severe aortoiliac atherosclerosis without aneurysm. 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 5. Nonspecific heterogeneous enlargement of the prostate again noted. Claudio Buchanan MD Objective Remarks GENERAL: in no acute distress. CARDIOVASCULAR: tachycardic with irregular rhythm without murmurs, gallops, or rubs. RESPIRATORY: diminished air entry in bases. GASTROINTESTINAL: Abdomen soft, non-tender, nondistended. Normal, active bowel sounds MUSCULOSKELETAL: Extremities with bilateral pedal edema NEURO: Alert & Oriented x4 to person, place, time, situation. Moves all ext x4 Procedures liver biopsy Medications and IVs Current Medications IV Flush (NS Flush) 2 ml UNSCH PRN IVF FLUSH AFTER USING IV ACCESS Last administered on 09/07/16t 20:22; Start 09/04/16 at 09:45 Furosemide (Lasix Inj) 60 mg ONCE ONCE IVP Last administered on 09/04/16 10:33 ; Start 09/04/16 at 09:45; Stop 09/04/16 at 09:46; Status DC Diltiazem HCl (Cardizem Inj) 15 mg ONCE ONCE IV Last administered on 09/04/16 10:33; Start 09/04/16 at 10:30; Stop 09/04/16 at 10:31; Status DC Albuterol Sulfate (Albuterol Neb) 1.25 mg Q2HR NEB PRN NEB SHORTNESS OF BREATH ; Start 09/04/16 at 12:00 Iohexol 100 ml 100 ml STK-MED ONCE IV Last administered on 09/04/16 11:37; Start 09/04/16 at 11:37; Stop 09/04/16 at 11:38; Status DC Diltiazem HCl/ Sodium Chloride (Cardizem Inj/NS Inj) 125 ml @ 0 mls/hr TITRATE IV Last administered on 09/05/16 07:38; Start 09/04/16 at 13:15; Stop 09/05/16 at 12:42; Status DC Aspirin (Ecotrin Ec) 81 mg DAILY PO ; Start 09/05/16 at 09:00; Stop 09/05/16 at 09 :00; Status DC Metoprolol Tartrate (Lopressor) 100 mg DAILY PO Last administered on 09/05/16 10:00; Start 09/05/16 at 09:00; Stop 09/06/16 at 08:25; Status DC Temazepam (Restoril) 15 mg HS PRN PO INSOMNIA Last administered on 09/07/16 20 :22; Start 09/04/16 at 13:15 Tiotropium [place] (Spiriva Inh) 2 mcg DAILY INH AST Last administered on 08:51; Start 09/05/16 at 09:00 Furosemide (Lasix Inj) 40 mg DAILY IV PUSH ; Start 09/05/16 at 09:00; Stop at 09:29; Status DC Enoxaparin Sodium (Lovenox Inj) 40 mg Q24H SQ ; Start 09/05/16 at 09:00; Stop 09/05/16 at 09:00; Status DC Furosemide (Lasix Inj) 20 mg DAILY IV PUSH Last administered on 09/07/16 08:50 ; Start 09/06/16 at 09:00 Diltiazem HCl (Cardizem) 30 mg QID PO Last administered on 09/07/16 13:07; Start 09/05/16 at 09:30; Stop 09/07/16 at 13:33; Status DC Metoprolol Tartrate (Lopressor) 50 mg BID PO Last administered on 09/07/16 20: 22; Start 09/06/16 at 09:00 Ondansetron HCl (Zofran Inj) 4 mg STK-MED ONCE .ROUTE ; Start 09/06/16 at 09:29 ; Stop 09/06/16 at 09:30; Status DC Lidocaine/ Epinephrine (Xylocaine-Epi 1%-1:100,000 Inj) 20 ml STK-MED ONCE .ROUTE Last administered on 09/06/16 10:59; Start 09/06/16 at 10:59; Stop 04/15 at 11:00; Status DC Midazolam HCl (Versed Inj) 5 mg STK-MED ONCE .ROUTE Last administered on 11:17; Start 09/06/16 at 11:17; Stop 09/06/16 at 11:18; Status DC Fentanyl Citrate (fentaNYL INJ) 250 mcg STK-MED ONCE .ROUTE Last administered on 09/06/16 11:17; Start 09/06/16 at 11:17; Stop 09/06/16 at 11:18; Status DC Hydromorphone HCl (Dilaudid) 1 mg Q6H PRN PO PAIN SCALE 1 TO 10; Start at 12:45 Albuterol/ Ipratropium (Duoneb Neb) 1 ampule BID NEB INH Last administered on 09/08/16 07:58; Start 09/06/16 at 20:00 Metolazone (Zaroxolyn) 5 mg ONCE ONCE PO ; Start 09/06/16 at 16:30; Stop at 16:50; Status DC Diltiazem HCl (Cardizem) 60 mg QID PO Last administered on 09/07/16 18:22; Start 09/07/16 at 18:00 A/P Assessment and Plan A/P - acute on chronic diastolic CHF- improving. continue with IV diuretics- I/O monitoring- monitor renal function closely- cardiology following. -COPD - on home oxgen; continue Spiriva- continue with neb treatment- pulmonary consult appreciated. -atrial fibrillation with rapid ventricular response;continue metoprolol and po cardizem; the dose of cardizem was increased- continue to monitor and adjust the regimen as needed. will add aspirin upon discharge. -liver mass- suspicious for hepatocellular carcinoma- with history of colon cancer- oncology consult appreciated- s/p liver biopsy- will follow the pathology. -hypertension; resumed BB and Cardizem . -hyponatremia due to fluid overload- improved- will monitor -acute kidney injury; improved- will monitor. -left apical mass- stable -consulted PT. Discharge Planning patient wants to go to rehab. expected to be discharged within the next 24-48 hrs if stable. Jose Duggan MD Sep 08, 2016 08:49
[2016-09-08] MEDS ORDERED: IPRASOL INH (08:51)
--- NOTE | 2016-09-08 08:52 | HHI.DCPOC ---
Discharge Care Plan Diagnosis: (1) History of CHF (congestive heart failure) (2) Anasarca Your Health Problems Are: Swelling Leg Swelling Fluid/Lung Overload Goals to Promote Your Health * To prevent worsening of your condition and complications * To maintain your health at the optimal level Directions to Meet Your Goals Take your medications as prescribed Follow your dietary instruction Follow activity as directed Keep your appointments as scheduled Take your immunizations and boosters as scheduled If your symptoms worsen call your PCP, if no PCP go to Urgent Care Center or Emergency Room Smoking is Dangerous to Your Health. Avoid second hand smoke Call the 24-hour hour crisis hotline for domestic abuse at Jose Duggan MD Sep 08, 2016 08:52
--- NOTE | 2016-09-08 18:17 | HHI.PR ---
Subjective Remarks pt denies chest pain and SOB Objective Vital Signs Date Time Temp Pulse Resp B/P Pulse Ox O2 Delivery O2 Flow Rate FiO2 09/08/16 17:10 95 Nasal Cannula 2.00 09/08/16 17:07 82 09/08/16 16:19 66 09/08/16 15:50 81 09/08/16 15:50 98.0 78 18 108/67 95 09/08/16 14:25 72 09/08/16 13:09 73 09/08/16 12:05 77 09/08/16 11:30 83 09/08/16 11:30 97.9 75 18 136/85 95 09/08/16 10:40 81 09/08/16 09:28 118 09/08/16 08:22 109 09/08/16 07:59 96 Nasal Cannula 2.00 09/08/16 07:30 97.9 99 20 127/91 95 09/08/16 07:30 88 09/08/16 06:00 91 09/08/16 05:00 93 09/08/16 04:00 98.0 90 18 149/93 97 09/08/16 02:00 80 09/08/16 01:00 80 09/08/16 00:00 98.0 87 18 133/83 94 09/07/16 23:00 82 09/07/16 22:00 84 09/07/16 21:00 78 09/07/16 20:44 96 Nasal Cannula 2.00 09/07/16 20:00 78 09/07/16 19:00 97.9 79 18 108/69 95 09/07/16 19:00 79 I/O 09/07/16 09/07/16 09/07/16 09/08/16 09/08/16 09/08/16 07:00 15:00 23:00 07:00 15:00 23:00 Intake Total 240 ml 640 ml 480 ml 480 ml Output Total 350 ml 100 ml 450 ml 750 ml Balance -110 ml 540 ml 30 ml -270 ml Intake Oral 240 ml 640 ml 480 ml 480 ml Output Urine Total 350 ml 100 ml 450 ml 750 ml # Voids 2 # Bowel Movements 2 0 0 VSS CHEST: CTA HEART: S1, S2, AFIB ABD: ST, NT Ext: edema Result Diagram: 09/04/16 0935 09/06/16 0610 Assessment and Plan Assessment and Plan HR is well controlled. continue current medical regimen I will follow as needed Pam Torres MD Sep 08, 2016 18:17
[2016-09-08] MEDS: TEMAZEPAM 15 MG CAP PO PRN (21:14)
[2016-09-09] VITALS (21 sets, daily range): BP systolic 119–153; BP diastolic 74–86; PULSE 64–112; RESP 16–18; TEMP 97.9–98.3; O2SAT 95–96
[2016-09-09 07:24] LABS: BICARBONATE 32.9 MEQ/L (21.0-32.0); POTASSIUM 4.2 MEQ/L (3.5-5.1)
[2016-09-09] MEDS: RESP: ALBUTEROL 2.5 MG/IPRATROPIUM 0.5 MG NEB (SCH) INH (07:31)
--- NOTE | 2016-09-09 08:46 | HHI.PR ---
Subjective Remarks sitting on the chair with no chest pain or distress. overall doing better and is willing to go to rehab. no new complaints. d/w the RN. Objective Vitals Vital Signs Date Time Temp Pulse Resp B/P Pulse Ox O2 Delivery O2 Flow Rate FiO2 09/09/16 06:00 94 09/09/16 05:00 82 09/09/16 04:00 70 09/09/16 03:13 66 16 130/80 96 09/09/16 03:00 78 09/09/16 02:00 70 09/09/16 01:00 64 09/09/16 00:00 86 18 153/86 95 09/09/16 00:00 80 09/08/16 23:00 80 09/08/16 22:00 86 09/08/16 21:00 76 09/08/16 20:00 60 09/08/16 20:00 98.3 65 20 130/71 96 09/08/16 19:00 81 09/08/16 18:34 71 09/08/16 17:10 95 Nasal Cannula 2.00 09/08/16 17:07 82 09/08/16 16:19 66 09/08/16 15:50 81 09/08/16 15:50 98.0 78 18 108/67 95 09/08/16 14:25 72 09/08/16 13:09 73 09/08/16 12:05 77 09/08/16 11:30 83 09/08/16 11:30 97.9 75 18 136/85 95 09/08/16 10:40 81 09/08/16 09:28 118 I/O 09/08/16 09/08/16 09/08/16 09/09/16 09/09/16 09/09/16 07:00 15:00 23:00 07:00 15:00 23:00 Intake Total 480 ml 480 ml 200 ml Output Total 450 ml 750 ml 500 ml Balance 30 ml -270 ml -300 ml Intake Oral 480 ml 480 ml 200 ml Output Urine Total 450 ml 750 ml 500 ml # Bowel Movements 0 0 0 Result Diagram: 09/09/16 0604 Imaging Last Impressions Liver Biopsy CT 09/06/16 0900 Signed Impressions: Service Date/Time: Tuesday, September 06, 2016 11:21 - CONCLUSION: Uncomplicated CT guided biopsy of the right lobe liver mass. Claudio Donohue MD Chest X-Ray 09/04/16 0934 Signed Impressions: Service Date/Time: Sunday, September 04, 2016 09:57 - CONCLUSION: Stable radiographic appearance of the chest without acute abnormality demonstrated. There is no significant change in the large left apical mass. Claudio Buchanan MD Chest CT 09/04/16 0000 Signed Impressions: Service Date/Time: Sunday, September 04, 2016 11:30 - CONCLUSION: 1. Mild bibasilar atelectasis and a tiny, nonspecific right pleural effusion. 2. Large but stable, presumably benign left apical mass. 3. Mild quiroz chamber enlargement of the heart and diffuse coronary artery calcification. 4. Multinodular goiter , similar to prior studies. Claudio Buchanan MD Abdomen/Pelvis CT 09/04/16 0000 Signed Impressions: Service Date/Time: Sunday, September 04, 2016 11:30 - CONCLUSION: 1. Large ill-defined mass inferiorly of the right hepatic lobe, malignant until proven otherwise. A metastasis is possible but given the large size and no other similar hepatic lesions, a primary hepatocellular carcinoma is thought to be more likely. Elsewhere in the liver numerous stable subcentimeter cysts are noted. 2. Interim colon resection. No recurrent mass, obstruction, inflammation or other acute abnormality seen of the GI tract. 3. Severe aortoiliac atherosclerosis without aneurysm. 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 5. Nonspecific heterogeneous enlargement of the prostate again noted. Claudio Buchanan MD Objective Remarks GENERAL: in no acute distress. CARDIOVASCULAR: tachycardic with irregular rhythm without murmurs, gallops, or rubs. RESPIRATORY: diminished air entry in bases. GASTROINTESTINAL: Abdomen soft, non-tender, nondistended. Normal, active bowel sounds MUSCULOSKELETAL: Extremities with bilateral pedal edema- seems to be improving. NEURO: Alert & Oriented x4 to person, place, time, situation. Moves all ext x4 Procedures liver biopsy Medications and IVs Current Medications IV Flush (NS Flush) 2 ml UNSCH PRN IVF FLUSH AFTER USING IV ACCESS Last administered on 09/08/16 21:13; Start 09/04/16 at 09:45 Furosemide (Lasix Inj) 60 mg ONCE ONCE IVP Last administered on 09/04/16 10:33 ; Start 09/04/16 at 09:45; Stop 09/04/16 at 09:46; Status DC Diltiazem HCl (Cardizem Inj) 15 mg ONCE ONCE IV Last administered on 09/04/16 10:33; Start 09/04/16 at 10:30; Stop 09/04/16 at 10:31; Status DC Albuterol Sulfate (Albuterol Neb) 1.25 mg Q2HR NEB PRN NEB SHORTNESS OF BREATH ; Start 09/04/16 at 12:00 Iohexol 100 ml 100 ml STK-MED ONCE IV Last administered on 09/04/16 11:37; Start 09/04/16 at 11:37; Stop 09/04/16 at 11:38; Status DC Diltiazem HCl/ Sodium Chloride (Cardizem Inj/NS Inj) 125 ml @ 0 mls/hr TITRATE IV Last administered on 09/05/16 07:38; Start 09/04/16 at 13:15; Stop 09/05/16 at 12:42; Status DC Aspirin (Ecotrin Ec) 81 mg DAILY PO ; Start 09/05/16 at 09:00; Stop 09/05/16 at 09 :00; Status DC Metoprolol Tartrate (Lopressor) 100 mg DAILY PO Last administered on 09/05/16 10:00; Start 09/05/16 at 09:00; Stop 09/06/16 at 08:25; Status DC Temazepam (Restoril) 15 mg HS PRN PO INSOMNIA Last administered on 09/08/16 21 :14; Start 09/04/16 at 13:15 Tiotropium [place] (Spiriva Inh) 2 mcg DAILY INH AST Last administered on 08:40; Start 09/05/16 at 09:00 Furosemide (Lasix Inj) 40 mg DAILY IV PUSH ; Start 09/05/16 at 09:00; Stop at 09:29; Status DC Enoxaparin Sodium (Lovenox Inj) 40 mg Q24H SQ ; Start 09/05/16 at 09:00; Stop 09/05/16 at 09:00; Status DC Furosemide (Lasix Inj) 20 mg DAILY IV PUSH Last administered on 09/08/16 08:40 ; Start 09/06/16 at 09:00 Diltiazem HCl (Cardizem) 30 mg QID PO Last administered on 09/07/16 13:07; Start 09/05/16 at 09:30; Stop 09/07/16 at 13:33; Status DC Metoprolol Tartrate (Lopressor) 50 mg BID PO Last administered on 09/08/16 21: 14; Start 09/06/16 at 09:00 Ondansetron HCl (Zofran Inj) 4 mg STK-MED ONCE .ROUTE ; Start 09/06/16 at 09:29 ; Stop 09/06/16 at 09:30; Status DC Lidocaine/ Epinephrine (Xylocaine-Epi 1%-1:100,000 Inj) 20 ml STK-MED ONCE .ROUTE Last administered on 09/06/16 10:59; Start 09/06/16 at 10:59; Stop 04/15 at 11:00; Status DC Midazolam HCl (Versed Inj) 5 mg STK-MED ONCE .ROUTE Last administered on 11:17; Start 09/06/16 at 11:17; Stop 09/06/16 at 11:18; Status DC Fentanyl Citrate (fentaNYL INJ) 250 mcg STK-MED ONCE .ROUTE Last administered on 09/06/16 11:17; Start 09/06/16 at 11:17; Stop 09/06/16 at 11:18; Status DC Hydromorphone HCl (Dilaudid) 1 mg Q6H PRN PO PAIN SCALE 1 TO 10 Last administered on 09/09/16 00:51; Start 09/06/16 at 12:45 Albuterol/ Ipratropium (Duoneb Neb) 1 ampule BID NEB INH Last administered on 09/09/16 07:31; Start 09/06/16 at 20:00 Metolazone (Zaroxolyn) 5 mg ONCE ONCE PO ; Start 09/06/16 at 16:30; Stop at 16:50; Status DC Diltiazem HCl (Cardizem) 60 mg QID PO Last administered on 09/08/16 21:13; Start 09/07/16 at 18:00 A/P Assessment and Plan A/P - acute on chronic diastolic CHF- improving. continue with diuretics- I/O monitoring- - cardiology following. -COPD - on home oxgen; continue Spiriva- continue with neb treatment- pulmonary consult appreciated. -atrial fibrillation with rapid ventricular response;continue metoprolol and po cardizem; the dose of cardizem was increased- continue to monitor and adjust the regimen as needed. will add aspirin upon discharge per cardiology- patient refused anticoagulation. -liver mass- suspicious for hepatocellular carcinoma- with history of colon cancer- oncology consult appreciated- s/p liver biopsy- will follow the pathology. cleared by Oncology for discharge- f/u as outpatient. -hypertension; resumed BB and Cardizem . -hyponatremia due to fluid overload- improved. -acute kidney injury; improved. -left apical mass- stable -consulted PT. Discharge Planning likely dc to rehab later today if cleared by cardiology,. see med list. f/u; pcp, cardiology and pulmonary. d/w the patient, RN and case management. time spent 32 min. Jose Duggan MD Sep 09, 2016 08:46
[2016-09-09] MEDS ORDERED: METO-338 PO (08:50)
[2016-09-09] MEDS ORDERED: POTA10CA PO (08:52)
[2016-09-09] MEDS ORDERED: FURO1TAB62 PO (08:52)
--- NOTE | 2016-09-09 08:53 | HHI.DS ---
Discharge Summary Admission Date Sep 04, 2016 at 11:20 Discharge Date: Sep 09, 2016 Admitting Diagnosis respiratory distress, A. fib with RVR, lung mass (1) Atrial fibrillation with RVR ICD Code: I48.91 Diagnosis: Principal (2) Liver mass ICD Code: R16.0 Diagnosis: Principal (3) CHF (congestive heart failure) ICD Code: I50.9 Diagnosis: Principal Procedures liver biopsy Brief History - From Admission patient is a 86 y/o male with history of CHF,COPD, colon cancer, who was recently discharged from the hospital after he was treated for COPD exacerbation and pneumonia presented to ER again with worsening sob. he says that his difficulty breathing gradually started to get worse again. he has a dry cough. he denies any fever or chills. he says that he had to sit up over night because of persistent cough. he's gained a couple of pounds recently and he noticed that his legs are more swollen.of note he was recently started on home oxygen and his diuretics were stopped due to kidney failure. CBC/BMP: 09/09/16 0604 Significant Findings Laboratory Tests Test 09/09/16 06:04 Sodium Level 134 MEQ/L (136-145) Chloride Level 92 MEQ/L (98-107) Carbon Dioxide Level 32.9 MEQ/L (21.0-32.0) Blood Urea Nitrogen 29 MG/DL (7-18) Estimat Glomerular Filtration 74 ML/MIN (>89) Rate Random Glucose 189 MG/DL (74-106) Imaging Last Impressions Liver Biopsy CT 09/06/16 0900 Signed Impressions: Service Date/Time: Tuesday, September 06, 2016 11:21 - CONCLUSION: Uncomplicated CT guided biopsy of the right lobe liver mass. Claudio Donohue MD Chest X-Ray 09/04/16 0934 Signed Impressions: Service Date/Time: Sunday, September 04, 2016 09:57 - CONCLUSION: Stable radiographic appearance of the chest without acute abnormality demonstrated. There is no significant change in the large left apical mass. Claudio Buchanan MD Chest CT 09/04/16 0000 Signed Impressions: Service Date/Time: Sunday, September 04, 2016 11:30 - CONCLUSION: 1. Mild bibasilar atelectasis and a tiny, nonspecific right pleural effusion. 2. Large but stable, presumably benign left apical mass. 3. Mild quiroz chamber enlargement of the heart and diffuse coronary artery calcification. 4. Multinodular goiter , similar to prior studies. Claudio Buchanan MD Abdomen/Pelvis CT 09/04/16 0000 Signed Impressions: Service Date/Time: Sunday, September 04, 2016 11:30 - CONCLUSION: 1. Large ill-defined mass inferiorly of the right hepatic lobe, malignant until proven otherwise. A metastasis is possible but given the large size and no other similar hepatic lesions, a primary hepatocellular carcinoma is thought to be more likely. Elsewhere in the liver numerous stable subcentimeter cysts are noted. 2. Interim colon resection. No recurrent mass, obstruction, inflammation or other acute abnormality seen of the GI tract. 3. Severe aortoiliac atherosclerosis without aneurysm. 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 5. Nonspecific heterogeneous enlargement of the prostate again noted. Claudio Buchanan MD PE at Discharge GENERAL: in no acute distress. CARDIOVASCULAR: tachycardic with irregular rhythm without murmurs, gallops, or rubs. RESPIRATORY: diminished air entry in bases. GASTROINTESTINAL: Abdomen soft, non-tender, nondistended. Normal, active bowel sounds MUSCULOSKELETAL: Extremities with bilateral pedal edema- seems to be improving. NEURO: Alert & Oriented x4 to person, place, time, situation. Moves all ext x4 Hospital Course - acute on chronic diastolic CHF- improving. continue with diuretics- I/O monitoring- - cardiology following. -COPD - on home oxgen; continue Spiriva- continue with neb treatment- pulmonary consult appreciated. -atrial fibrillation with rapid ventricular response;continue metoprolol and po cardizem; the dose of cardizem was increased- continue to monitor and adjust the regimen as needed. will add aspirin upon discharge per cardiology. patient refused anticoagulation. -liver mass- suspicious for hepatocellular carcinoma- with history of colon cancer- oncology consult appreciated- s/p liver biopsy- will follow the pathology. cleared by Oncology for discharge- f/u as outpatient. -hypertension; resumed BB and Cardizem . -hyponatremia due to fluid overload- improved. -acute kidney injury; improved. -left apical mass- stable -goiter- f/u as outpatient -consulted PT. Pt Condition on Discharge: Fair Discharge Disposition: Discharge to SNF Discharge Time: > 30 minutes Discharge Instructions DIET: Follow Instructions for: Heart Healthy Diet Activities you can perform: Regular-No Restrictions Follow up Referrals: Cardiology Oncology PCP Follow-up Pulmonology New Medications: Furosemide (Lasix) 20 Mg Tab 20 MG PO EVERY OTHER DAY chf #30 Ref 0 TAB Potassium Chloride ER (Potassium Chloride ER) 10 Meq Cap 10 MEQ PO EVERY OTHER DAY Electrolyte Replacement #30 Ref 0 CAP Metoprolol Tartrate (Lopressor) 100 Mg Tab 50 MG PO BID a-fib Days 30 Ref 0 TAB Changed Medications: Ipratropium-Albuterol Neb (Duoneb) 0.5-2.5 Mg/3 Ml Neb 1 NEBULE INH Q4HR NEB PRN SHORTNESS OF BREATH #180 Ref 0 NEBULE (Medication details modified) Continued Medications: Albuterol 8.5 GM Inh (Proair Hfa 8.5 GM Inh) 90 Mcg/Act Aer 1 PUFF INH Q4H 108 mcg/actuation PRN SHORTNESS OF BREATH #1 Ref 0 INHALER Aspirin (Aspirin) 81 Mg Tabdr 81 MG PO DAILY TAB Diltiazem ER 24 HR (Taztia Xt) 240 Mg Caper 240 MG PO DAILY #90 Ref 1 CAP Ipratropium-Albuterol Neb (Duoneb) 0.5-2.5 Mg/3 Ml Neb 1 NEBULE INH BID Breathing Treatment #30 Ref 0 NEBULE Tiotropium Inh (Spiriva Respimat Inh) 1.25 Mcg/Act Aero 2 PUFF INH DAILY 1.25 mcg = 1 inhalation Asthma Management #1 Ref 0 INHALER Discontinued Medications: Hydrocodone W/ Homatropine (Hydrocodone/Homatropine 5-1.5 mg/5Ml) 1 Syp Syp 5 ML PO Q4-6H PRN COUGH #100 ML Lisinopril-Hctz (Lisinopril-Hctz) 20-12.5 Mg Tab 1 TAB PO DAILY Blood Pressure Management #30 Ref 0 TAB Metoprolol Tartrate (Metoprolol Tartrate) 100 Mg Tab 100 MG PO DAILY #90 Ref 1 TAB Prednisone (Prednisone) 20 Mg Tab 20 MG PO DIRECTED 40 MG twice a day x 3 days, then 20 MG daily x 3 days, then 10 MG daily x 3 days Inflammation #11 Ref 0 TAB Temazepam (Temazepam) 15 Mg Cap 15 MG PO HS PRN INSOMNIA #30 Ref 0 CAP Jose Duggan MD Sep 09, 2016 08:53
[2016-09-09] MEDS: TIOTROPIUM BROMIDE 18 MCG INH INH SCH (09:00)
[2016-09-09] MEDS: METOPROLOL TARTRATE 100 MG TAB PO SCH (09:05)
[2016-09-09] MEDS: DILTIAZEM HCL 60 MG TAB PO SCH ×2 (09:05→13:20)
[2016-09-09] MEDS: FUROSEMIDE 20 MG/2 ML VIAL IV PUSH SCH (09:06)
--- NOTE | 2016-09-09 09:28 | EC ---
Study Study Date:09/08/2016 STUDY CONCLUSIONS SUMMARY - Left ventricle: The cavity size was normal. Wall thickness was normal. Systolic function was mildly reduced. The estimated ejection fraction was in the range of 45% to 50%. Mild diffuse hypokinesis. The study is not technically sufficient to allow evaluation of LV diastolic function. - Aortic valve: Though not exceedingly well seen, visually the aortic valve appears severely stenotic. Transvalvular velocity was increased. There was moderate to severe stenosis. Trace regurgitation. Mean gradient: 31mm Hg (S). - Mitral valve: Mild regurgitation. - Left atrium: The atrium was mildly dilated. If LV function is below 40, please consider prescribing an ACEI or ARB or document rationale for non-use. PROCEDURE DATA STUDY STATUS: Elective. Procedure: Transthoracic echocardiography. Image quality was good. Scanning was performed from the parasternal, apical, and subcostal acoustic windows. Study completion: The patient tolerated the procedure well. Transthoracic echocardiography. M-mode, complete 2D, complete spectral Doppler, and color Doppler. Patient status: Inpatient. CARDIAC ANATOMY LEFT VENTRICLE: The cavity size was normal. Wall thickness was normal. Systolic function was mildly reduced. The estimated ejection fraction was in the range of 45% to 50%. Mild diffuse hypokinesis. The study is not technically sufficient to allow evaluation of LV diastolic function. AORTIC VALVE: Though not exceedingly well seen, visually the aortic valve appears severely stenotic. Trileaflet; normal thickness leaflets. Doppler: Transvalvular velocity was increased. There was moderate to severe stenosis. Trace regurgitation. Mean gradient: 31mm Hg (S). Peak gradient: 66mm Hg (S). AORTA: Aortic root: The aortic root was mildly dilated. MITRAL VALVE: Structurally normal valve. Doppler: Transvalvular velocity was within the normal range. There was no evidence for stenosis. Mild regurgitation. Peak gradient: 5mm Hg (D). LEFT ATRIUM: The atrium was mildly dilated. RIGHT VENTRICLE: The cavity size was normal. Wall thickness was normal. PULMONIC VALVE: Doppler: Transvalvular velocity was within the normal range. There was no evidence for stenosis. No regurgitation. TRICUSPID VALVE: Structurally normal valve. Doppler: Transvalvular velocity was within the normal range. Trace regurgitation. PULMONARY ARTERY: The main pulmonary artery was normal-sized. Systolic pressure was within the normal range. RIGHT ATRIUM: The atrium was normal in size. PERICARDIUM: There was no pericardial effusion. SYSTEMIC VEINS: Inferior vena cava: The vessel was normal in size. BASIC MEASUREMENTS ADULT NORMAL Left ventricle LV internal dimension, ED, chordal level, 43 mm 43-52 PLAX LV internal dimension, ES, chordal level, 31.9 mm 23-38 PLAX Fractional shortening, chordal level, PLAX *26 % >29 LV posterior wall thickness, ED 9.39 mm IVS/LVPW ratio, ED 1.19 <1.3 Ventricular septum Septal thickness, ED 11.2 mm Left atrium Anterior-posterior dimension 42 mm Right ventricle RV internal dimension, ED, PLAX 25.3 mm 19-38 DOPPLER MEASUREMENTS ADULT NORMAL Aortic valve Peak velocity, S 374 cm/s Mean velocity, S 248 cm/s VTI, S 78.3 cm Mean gradient, S 31 mm Hg Peak gradient, S 66 mm Hg Mitral valve Peak E-wave velocity 114 cm/s Peak A-wave velocity 43.8 cm/s Peak gradient, D 5 mm Hg Peak E/A ratio 2.6 Tricuspid valve Regurgitant peak velocity 277 cm/s Peak RV-RA gradient, S 31 mm Hg Maximal regurgitant velocity 277 cm/s LEGEND: Mean values are shown as u=mean value. Asterisk (*) [place] values outside specified normal range. Prepared and signed by Tim Gaines [id number]
--- NOTE | 2016-09-09 14:35 | HHI.PR ---
Subjective Remarks pt denies chest pain and SOB Objective Vital Signs Date Time Temp Pulse Resp B/P Pulse Ox O2 Delivery O2 Flow Rate FiO2 09/09/16 14:00 88 09/09/16 13:00 74 09/09/16 12:00 74 09/09/16 11:30 97.9 96 18 139/80 96 09/09/16 11:00 84 09/09/16 10:00 112 09/09/16 09:00 106 09/09/16 08:00 100 09/09/16 07:35 96 Nasal Cannula 2.00 09/09/16 07:30 98.3 97 18 119/74 96 09/09/16 07:00 92 09/09/16 06:00 94 09/09/16 05:00 82 09/09/16 04:00 70 09/09/16 03:13 66 16 130/80 96 09/09/16 03:00 78 09/09/16 02:00 70 09/09/16 01:00 64 09/09/16 00:00 86 18 153/86 95 09/09/16 00:00 80 09/08/16 23:00 80 09/08/16 22:00 86 09/08/16 21:00 76 09/08/16 20:00 60 09/08/16 20:00 98.3 65 20 130/71 96 09/08/16 19:00 81 09/08/16 18:34 71 09/08/16 17:10 95 Nasal Cannula 2.00 09/08/16 17:07 82 09/08/16 16:19 66 09/08/16 15:50 81 09/08/16 15:50 98.0 78 18 108/67 95 I/O 09/08/16 09/08/16 09/08/16 09/09/16 09/09/16 09/09/16 07:00 15:00 23:00 07:00 15:00 23:00 Intake Total 480 ml 480 ml 200 ml Output Total 450 ml 750 ml 500 ml Balance 30 ml -270 ml -300 ml Intake Oral 480 ml 480 ml 200 ml Output Urine Total 450 ml 750 ml 500 ml # Bowel Movements 0 0 0 VSS CHEST: CTA HEART:S1,S2, AFIB ABD": ST, NT EXT: No edema Result Diagram: 09/09/16603 Assessment and Plan Assessment and Plan HR is well controlled. continue current medical regimen. pt was instructed to follow up with Dr Grewal next week. Pam Torres MD Sep 09, 2016 14:35
[2016-10-10] MEDS ORDERED: FURO1TAB62 PO (14:40)
[2016-10-10] MEDS ORDERED: METO50TA PO (14:41)
[2016-10-10] MEDS ORDERED: TAZT240C PO (14:46)
[2016-10-17] MEDS ORDERED: FLUT50SP EACH NARE (10:43)
[2016-10-17] MEDS ORDERED: TRAM50TA PO (10:43)
[2016-10-23] MEDS ORDERED: ALPR0.25 PO (11:49)
[2016-11-07] MEDS ORDERED: TRAM50TA PO (11:53)
[2016-12-12] MEDS ORDERED: METO-426 PO (15:57)
[2016-12-12] MEDS ORDERED: ALPR0.25 PO (15:57)
[2016-12-12] MEDS ORDERED: ALPR0.5T3 PO (16:17)
== END 2016-09-09 16:26 | DRG 308 ==
LOC: NEPE 09:05 → NEDA 11:20 → HCIN 16:17
PROVIDERS: ADMIT Internal Medicine; ATTEND Internal Medicine
PROC: 0FB03ZX Excision of Liver, Percutaneous Approach, Diagnostic (ICD-10-PCS; principal; 2016-09-06)
DX: I48.91 Unspecified atrial fibrillation (principal); I50.33 Acute on chronic diastolic (congestive) heart failure; J18.9 Pneumonia, unspecified organism; N17.9 Acute kidney failure, unspecified; C78.7 Secondary malignant neoplasm of liver and intrahepatic bile duct; J44.0 Chronic obstructive pulmonary disease with (acute) lower respiratory infection; E88.09 Other disorders of plasma-protein metabolism, not elsewhere classified; D69.6 Thrombocytopenia, unspecified; E87.1 Hypo-osmolality and hyponatremia; J98.11 Atelectasis; E87.5 Hyperkalemia; Z85.038 Personal history of other malignant neoplasm of large intestine; E04.2 Nontoxic multinodular goiter; E78.00 Pure hypercholesterolemia, unspecified; H91.90 Unspecified hearing loss, unspecified ear; I10 Essential (primary) hypertension; I25.10 Atherosclerotic heart disease of native coronary artery without angina pectoris; I73.9 Peripheral vascular disease, unspecified; I87.2 Venous insufficiency (chronic) (peripheral); K21.9 Gastro-esophageal reflux disease without esophagitis; N40.0 Benign prostatic hyperplasia without lower urinary tract symptoms; Z79.82 Long term (current) use of aspirin; Z87.01 Personal history of pneumonia (recurrent); Z87.891 Personal history of nicotine dependence
CPT/HCPCS: 47000; 71010; 71260; 74177; 77012; 80048; 80053; 80074; 81001; 82105; 82378; 82550; 82552; 82728; 83020; 83735; 83880; 84484; 85007; 85027; 85610; 85730; 88307; 88341; 88342; 93005; 93306; 94640; 94664; 96374; 96375; J1940; J2250; J2405; J3010; Q9967

== ENCOUNTER 2016-10-30 13:33 | Emergency (ER) | payer MEDICARE ==
[~2016-10-30] VITALS: Ht 167.6 cm; Wt 82.5 kg
[~2016-10-30 13:33] MED LIST changes: +ALPR0.25 PO; +FLUT50SP EACH NARE; +FURO1TAB62 PO; -HYDR5SYP10 PO; -LEVA500T PO; -LISI20TA PO; -METO100T PO; +METO50TA PO; +POTA10CA PO; -PRED20 PO; -TEMA15CA PO; +TRAM50TA PO; -ZYRT10CA PO
[2016-10-30 13:37] VITALS: BP 162/96; PULSE 73; RESP 16; TEMP 97.9; O2SAT 97
[2016-10-30] MEDS ORDERED: HYDR-3535 PO (13:47)
[2016-10-30] MEDS ORDERED: oxyCODONE/ACETAMINOPHEN 10 MG/325 MG TAB PO ONE (14:00)
[2016-10-30] MEDS ORDERED: DEXAMETHASONE SOD PHOS 4 MG/ML VIAL IM ONE (14:00)
--- NOTE | 2016-10-30 14:06 | PD ---
HPI Chief Complaint: Musculoskeletal Complaint Time Seen by Provider: 14:00 Travel History International Travel<30 days: No Contact w/Intl Traveler<30days: No Traveled to known affect area: No History of Present Illness HPI 86-year-old male with a history of COPD, metastatic colon cancer to the liver, BPH, hyperlipidemia, hypertension, A. fib, CHF presents to the emergency department for evaluation of shooting pain from left buttock down left leg. The patient states that "I have sciatica pain." States he has had this pain in the past. States that this current flareup has been going on for several weeks. He attributes it to beginning while he was doing physical therapy after being discharged from a recent hospitalization. He states that he saw his pain management physician last week and was prescribed Lortab [id number] milligram tablets which she has been taking however they're not controlling his pain. He denies any injury or trauma to his back or hip. Denies any fever, chills, nausea, vomiting, numbness or tingling, weakness. Pain is aggravated with movement. Denies any alleviating factors. Denies any anticoagulation. No other complaints. PFSH Past Medical History Hx Anticoagulant Therapy: Yes (81mg asa) Arthritis: Yes Asthma: No Atrial Fibrillation: Yes Autoimmune Disease: No Anxiety: Yes Heart Rhythm Problems: Yes (ATRIAL FIBRILATION) Cancer: No Cardiovascular Problems: Yes (htn on meds) High Cholesterol: Yes Chemotherapy: Yes (COLON CA) Chest Pain: Yes Congestive Heart Failure: Yes COPD: Yes Cerebrovascular Accident: No Coronary Artery Disease: Yes Diabetes: No Diminished Hearing: Yes Endocrine: No Gastrointestinal Disorders: No GERD: Yes Glaucoma: No Genitourinary: Yes (PROSTATE) Headaches: No Hepatitis: No Hiatal Hernia: No Hypertension: Yes Immune Disorder: No Implanted Vascular Access Dvce: No Kidney Stones: No Musculoskeletal: Yes (ARTHRITIS) Neurologic: No Psychiatric: No Reproductive: No Respiratory: Yes (COPD) Immunizations Current: Yes Migraines: No Pneumonia: Yes Radiation Therapy: No Renal Failure: No Seizures: No Sleep Apnea: No Thyroid Disease: No Tetanus Vaccination: < 5 Years ?: Not Past Surgical History Abdominal Surgery: Yes (UMBILIC HERNIA 1997, COLON RESECTION 08/04/14) AICD: No Appendectomy: Yes (MAR 2014) Arteriovenous Shunt: No Eye Surgery: Yes (cataracts) Genitourinary Surgery: Yes (COLD THERAPY ON BLADDER, TURP 08/06) Insulin Pump: No Neurologic Surgery: No Pacemaker: No Tonsillectomy: Yes Other Surgery: Yes (TURP) Social History Alcohol Use: No Tobacco Use: No (former) Substance Use: No Allergies-Medications (Allergen,Severity, Reaction): Coded Allergies: No Known Allergies (Verified , 10/30/16) Reported Meds & Prescriptions Reported Meds & Active Scripts Active Alprazolam 0.25 Mg Tab 0.25 Mg PO Q8H PRN Taztia Xt (Diltiazem ER 24 HR) 240 Mg Caper 240 Mg PO DAILY Metoprolol Tartrate 50 Mg Tab 50 Mg PO BID Lasix (Furosemide) 20 Mg Tab 20 Mg PO DAILY Potassium Chloride ER (Potassium Chloride) 10 Meq Cap 10 Meq PO EVERY OTHER DAY Nebulizer 1 Mis Mis 1 Ea .ROUTE DIRECTED Spiriva Respimat Inh (Tiotropium Inh) 1.25 Mcg/Act Aero 2 Puff INH DAILY 1.25 mcg = 1 inhalation Oxygen tank (Oxygen) 1 Ea Tank 2 Liter PAUL.CANULA CONTINUOUS Oxygen Concentrator Portable Gaseous 2 L/min via Nasal Cannula Continuous For 99 months Reported Lortab (Hydrocodone-Acetaminophen) 10-325 Mg Tab 1 Tab PO Q6H PRN Fluticasone Nasal [place] 50 Mcg/Act Naspr 50 Mcg EACH NARE BID 50 mcg/spray Duoneb (Ipratropium-Albuterol Neb) 0.5-2.5 Mg/3 Ml Neb 1 Nebule INH BID Proair Hfa 8.5 GM Inh (Albuterol Sulfate) 90 Mcg/Act Aer 1 Puff INH Q4H PRN 108 mcg/actuation Aspirin 81 Mg Tabdr 81 Mg PO DAILY Review of Systems Except as stated in HPI: all other systems reviewed are Neg Physical Exam Narrative GENERAL: Well-nourished and well-developed pleasant male patient in no acute distress who is nontoxic appearing. SKIN: Warm and dry. HEAD: Normocephalic and atraumatic. EYES: No injection, drainage, or hyphema noted. PERRLA. EOMI. ENT: No nasal drainage noted. Oropharynx is clear. NECK: Supple and the trachea is midline. CARDIOVASCULAR: Regular rate and rhythm. RESPIRATORY: Breath sounds are equal bilaterally with no accessory muscle use, wheezing, rhonchi, or crackles. MUSCULOSKELETAL: Mild tenderness to palpation over left SI joint. Positive left SLR. Bilateral lower extremity edema of ankles and feet, patient reports this is ongoing for several months. No obvious deformities, cyanosis, or ecchymosis is present throughout the upper and lower extremities. Negative Homans sign. Patient has full range of motion without any signs of neurovascular compromise. Strength 5/5 upper and lower extremities equal bilaterally. DP pulses are 2+ bilaterally. BACK: Nontender without any obvious deformities, bony point tenderness, or crepitus noted throughout the thoracic and lumbar vertebrae. NEUROLOGICAL: Awake, alert, and oriented. Normal speech and gait. Cranial nerves are grossly intact. Data Data Last Documented VS Vital Signs Date Time Temp Pulse Resp B/P Pulse Ox O2 Delivery O2 Flow Rate FiO2 10/30/16 13:37 97.9 73 16 162/96 97 MDM Medical Decision Making Medical Screen Exam Complete: Yes Emergency Medical Condition: Yes Differential Diagnosis Sciatica versus lumbar radiculopathy versus acute on chronic pain versus chronic pain Narrative Course 86-year-old male with a history of chronic pain presents to the emergency department for evaluation of left sciatica. Patient is afebrile, vital signs are stable. He follows up with pain management and was prescribed Lortab 10's last week which he has been taking however reports no improvement of symptoms. Patient has had no new injury or trauma to his back or hips and he has no red flags signs or symptoms. Patient will be given Decadron 8 mg IM and Percocet here in the emergency department. He'll be prescribed a Medrol Dosepak. Advised to follow-up with his pain management physician. Patient verbalizes understanding and agreement with treatment plan. Diagnosis Primary Impression: Sciatica of left side Referrals: Pain Management Patient Instructions: General Instructions, Sciatica (ED) Additional Instructions: Apply ice or heat to help alleviate symptoms. Take medication as prescribed with food and a full glass of water. Follow-up with your pain management physician. Return to the ED for any acute worsening of symptoms. Med/Other Pt SpecificInfo: Prescription(s) given Disposition: 01 DISCHARGE HOME Condition: Stable Aby Arriaga October 30, 2016 14:06
[2016-10-30] MEDS ORDERED: MEDR4PAK PO (14:07)
[2016-10-30 15:01] VITALS: RESP 16
[2016-11-07] MEDS ORDERED: TRAM50TA PO (11:53)
[2016-12-12] MEDS ORDERED: METO-426 PO (15:57)
[2016-12-12] MEDS ORDERED: ALPR0.25 PO (15:57)
[2016-12-12] MEDS ORDERED: ALPR0.5T3 PO (16:17)
== END 2016-10-30 15:02 | disposition home or self-care (01) ==
LOC: PHEFT 13:33
DX: M54.32 Sciatica, left side (principal); R60.0 Localized edema; I48.91 Unspecified atrial fibrillation; I10 Essential (primary) hypertension; E78.00 Pure hypercholesterolemia, unspecified; Z79.82 Long term (current) use of aspirin; Z87.891 Personal history of nicotine dependence
CPT/HCPCS: 96372; J1100

== ENCOUNTER 2016-11-01 15:31 | Emergency (ER) | payer MEDICARE ==
[~2016-11-01] VITALS: Ht 167.6 cm; Wt 83.2 kg
[~2016-11-01 15:31] MED LIST changes: +HYDR-3535 PO; +MEDR4PAK PO; -TRAM50TA PO
[2016-11-01 15:34] VITALS: BP 156/88; PULSE 86; RESP 18; TEMP 97.7; O2SAT 95
[2016-11-01] MEDS ORDERED: ONDANSETRON HCL 4 MG/2 ML VIAL IM ONE (16:15)
[2016-11-01] MEDS ORDERED: HYDROmorphone HCL PF 1 MG/ML VIAL IM ONE (16:15)
--- NOTE | 2016-11-01 16:16 | PD ---
HPI Chief Complaint: Back/ Neck Pain or Injury Time Seen by Provider: 15:48 Travel History International Travel<30 days: No Contact w/Intl Traveler<30days: No Traveled to known affect area: No History of Present Illness HPI This 86-year-old male is complaining of sciatica pain. He's been having pain that goes from the sciatic notch down the left upper leg off and on for many years. He says that he did a lot of heavy lifting when he was working and has severe arthritis in his back. He is going to pain management for many years. He is currently going to Dr. Naidu. He had some injections into his back a couple weeks ago which didn't seem to help much. He is taking 5 mg of oxycodone for pain without a lot of response. He has recently been found to have metastatic colon cancer. He has a large mass in his liver for which different treatment strategies of being discussed. He had a bone scan done on October 15 which showed some uptake at T12-L1 and L2 L3. It was noted that he had arthritis in his levels but it was stated that metastatic disease could not be definitively excluded without a MRI with contrast. He says that the pain is having now is similar to pain he is had before though it is more severe PFSH Past Medical History Hx Anticoagulant Therapy: Yes (81mg asa) Arthritis: Yes Asthma: No Atrial Fibrillation: Yes Autoimmune Disease: No Anxiety: Yes Heart Rhythm Problems: Yes (ATRIAL FIBRILATION) Cancer: No Cardiovascular Problems: Yes (htn on meds) High Cholesterol: Yes Chemotherapy: Yes (COLON CA) Chest Pain: Yes Congestive Heart Failure: Yes COPD: Yes Cerebrovascular Accident: No Coronary Artery Disease: Yes Diabetes: No Diminished Hearing: Yes Endocrine: No Gastrointestinal Disorders: No GERD: Yes Glaucoma: No Genitourinary: Yes (PROSTATE) Headaches: No Hepatitis: No Hiatal Hernia: No Hypertension: Yes Immune Disorder: No Implanted Vascular Access Dvce: No Kidney Stones: No Medical other: No Musculoskeletal: Yes (ARTHRITIS) Neurologic: No Psychiatric: No Reproductive: No Respiratory: Yes (COPD) Immunizations Current: Yes Migraines: No Pneumonia: Yes Radiation Therapy: No Renal Failure: No Seizures: No Sleep Apnea: No Thyroid Disease: No Tetanus Vaccination: < 5 Years Past Surgical History Abdominal Surgery: Yes (UMBILIC HERNIA 1997, COLON RESECTION 08/04/14) AICD: No Appendectomy: Yes (MAR 2014) Arteriovenous Shunt: No Eye Surgery: Yes (cataracts) Genitourinary Surgery: Yes (COLD THERAPY ON BLADDER, TURP 08/06) Insulin Pump: No Neurologic Surgery: No Pacemaker: No Tonsillectomy: Yes Other Surgery: Yes (TURP) Social History Alcohol Use: No Tobacco Use: No (former) Substance Use: No Allergies-Medications (Allergen,Severity, Reaction): Coded Allergies: No Known Allergies (Verified , 11/01/16) Reported Meds & Prescriptions Reported Meds & Active Scripts Active Medrol Dosepak (Methylprednisolone) 4 Mg Dspk 4 Mg PO DIRECTED Per Pharmacist direction Alprazolam 0.25 Mg Tab 0.25 Mg PO Q8H PRN Taztia Xt (Diltiazem ER 24 HR) 240 Mg Caper 240 Mg PO DAILY Metoprolol Tartrate 50 Mg Tab 50 Mg PO BID Lasix (Furosemide) 20 Mg Tab 20 Mg PO DAILY Potassium Chloride ER (Potassium Chloride) 10 Meq Cap 10 Meq PO EVERY OTHER DAY Nebulizer 1 Mis Mis 1 Ea .ROUTE DIRECTED Spiriva Respimat Inh (Tiotropium Inh) 1.25 Mcg/Act Aero 2 Puff INH DAILY 1.25 mcg = 1 inhalation Oxygen tank (Oxygen) 1 Ea Tank 2 Liter PAUL.CANULA CONTINUOUS Oxygen Concentrator Portable Gaseous 2 L/min via Nasal Cannula Continuous For 99 months Reported Lortab (Hydrocodone-Acetaminophen) 10-325 Mg Tab 1 Tab PO Q6H PRN Fluticasone Nasal [place] 50 Mcg/Act Naspr 50 Mcg EACH NARE BID 50 mcg/spray Duoneb (Ipratropium-Albuterol Neb) 0.5-2.5 Mg/3 Ml Neb 1 Nebule INH BID Proair Hfa 8.5 GM Inh (Albuterol Sulfate) 90 Mcg/Act Aer 1 Puff INH Q4H PRN 108 mcg/actuation Aspirin 81 Mg Tabdr 81 Mg PO DAILY Review of Systems General / Constitutional: No: Fever, Chills Eyes: No: Diploplia HENT: No: Headaches, Vertigo Cardiovascular: No: Chest Pain or Discomfort, Palpitations Respiratory: No: Shortness of Breath Gastrointestinal: Positive: Abdominal Pain Genitourinary: No: Nocturia Musculoskeletal: Positive: Weakness, Pain Skin: No Rash, No Itching Neurologic: No: Weakness Physical Exam Narrative GENERAL: Well-developed male SKIN: Focused skin assessment warm/dry. HEAD: Atraumatic. Normocephalic. EYES: Pupils equal and round. No scleral icterus. No injection or drainage. ENT: No nasal bleeding or discharge. Mucous membranes pink and moist. NECK: Trachea midline. No JVD. CARDIOVASCULAR: Regular rate and rhythm. No murmur appreciated. RESPIRATORY: No accessory muscle use. Clear to auscultation. Breath sounds equal bilaterally. GASTROINTESTINAL: Abdomen soft, non-tender, nondistended. Hepatic and splenic margins not palpable. MUSCULOSKELETAL: No obvious deformities. No clubbing. No cyanosis. No edema. He has some tenderness of his lower back. He does have some bilateral pedal edema NEUROLOGICAL: Awake and alert. No obvious cranial nerve deficits. Motor grossly within normal limits. Normal speech. He has good strength in plantar and dorsiflexion bilaterally. Sensation of the legs appears grossly intact PSYCHIATRIC: Appropriate mood and affect; insight and judgment normal. Data Data Last Documented VS Vital Signs Date Time Temp Pulse Resp B/P Pulse Ox O2 Delivery O2 Flow Rate FiO2 11/01/16 15:34 97.7 86 18 156/88 95 Orders Hydromorphone Pf Inj (Dilaudid Pf Inj) (11/01/16 16:15) Ondansetron Inj (Zofran Inj) (11/01/16 16:15) MDM Medical Decision Making Medical Screen Exam Complete: Yes Emergency Medical Condition: Yes Medical Record Reviewed: Yes Differential Diagnosis Differential includes sciatica, herniated disc, spinal stenosis, metastatic colon cancer Narrative Course I recommended to the patient that we do an MRI to definitively rule out colon cancer as if this is the cause of his pain and the treatment would be quite different and that would be risk of paralysis. Patient is quite adamant that he does not want MRI done today. He says if he needs one he will go to the [facility]. He wishes pain relief at this time. I have ordered an injection of Dilaudid and was given some additional oxycodone with recommendations that he can take 2 tablets every 4 hours. I have cautioned him that this will increase his side effects of constipation and sedation Diagnosis Primary Impression: Sciatica of left side Scripts Oxycodone-Acetaminophen (Percocet)5-325 mg Tab1-2 Tab PO Q4H PRN (PAIN) #30 TAB Ref 0 Prov:MacMahon,Aftab MD 11/01/16 Disposition: 01 DISCHARGE HOME Condition: Stable Aftab Paz MD November 01, 2016 16:16
[2016-11-01] MEDS ORDERED: PERC5TAB12 PO (16:32)
[2016-11-07] MEDS ORDERED: TRAM50TA PO (11:53)
[2016-12-12] MEDS ORDERED: ALPR0.25 PO (15:57)
[2016-12-12] MEDS ORDERED: METO-426 PO (15:57)
[2016-12-12] MEDS ORDERED: ALPR0.5T3 PO (16:17)
== END 2016-11-01 16:52 | disposition home or self-care (01) ==
LOC: PHED 15:31
DX: M54.42 Lumbago with sciatica, left side (principal); I48.91 Unspecified atrial fibrillation; I10 Essential (primary) hypertension; E78.00 Pure hypercholesterolemia, unspecified; I50.9 Heart failure, unspecified; J44.9 Chronic obstructive pulmonary disease, unspecified; I25.10 Atherosclerotic heart disease of native coronary artery without angina pectoris; K21.9 Gastro-esophageal reflux disease without esophagitis; Z85.038 Personal history of other malignant neoplasm of large intestine; Z87.891 Personal history of nicotine dependence
CPT/HCPCS: 96372; 99283; J1170; J2405

== ENCOUNTER 2016-11-03 07:50 | Emergency (ER) | payer MEDICARE ==
[~2016-11-03] VITALS: Ht 167.6 cm; Wt 83.3 kg
[~2016-11-03 07:50] MED LIST changes: +PERC5TAB12 PO
[2016-11-03 07:56] VITALS: BP 166/104; PULSE 96; RESP 22; TEMP 98; O2SAT 97
[2016-11-03] MEDS ORDERED: HYDROmorphone HCL PF 1 MG/ML VIAL IV PUSH ONE (08:15)
[2016-11-03] MEDS ORDERED: RESP: ALBUTEROL 2.5 MG/IPRATROPIUM 0.5 MG NEB (SCH) NEB ONE (08:15)
[2016-11-03] MEDS ORDERED: ONDANSETRON HCL 4 MG/2 ML VIAL IV PUSH ONE (08:15)
[2016-11-03 08:16] VITALS: BP 164/93; PULSE 87; RESP 18; O2SAT 98
--- NOTE | 2016-11-03 08:34 | PD ---
HPI Chief Complaint: Respiratory Symptoms Time Seen by Provider: 08:00 Travel History International Travel<30 days: No Contact w/Intl Traveler<30days: No Traveled to known affect area: No History of Present Illness HPI This 86-year-old male has multiple complaints. He has recently been found to have metastatic colorectal cancer. He has a large mass in his liver. He is seeing Dr. Nathan and being considered for different treatments. He also has a history of chronic back pain. He says he has had sciatica for many years. He sees Dr. Encinas in pain management. He is having a lot of pain with his back which has not been responsive to outpatient treatment. This has been evaluated to see if it could be related to the cancer. He had a bone scan done on October 15 which showed increased uptake at the T12-L1 and L2 and L3. It was noted that he has arthritis at the sites which could explain the uptake. It was noted that metastatic cancer cannot be ruled out and an MRI was recommended. The patient was in the emergency department last Friday with increasing back pain. At that time I saw the patient and recommended that we do an MRI at that time. He declined saying that if he needed an MRI he would go [facility]. He was given an injection for pain on Friday and a prescription for oxycodone 10 was given. He says he has not taken this medication. He has been taking medication that he had at home which has not been helping. He says that since yesterday he has been feeling weak. He feels like he is given a pass out. He is not having chest pain. He does feel short of breath. He has a history of atrial fibrillation. He has chronic edema of his legs. PFSH Past Medical History Hx Anticoagulant Therapy: Yes (81mg asa) Arthritis: Yes Asthma: No Atrial Fibrillation: Yes Autoimmune Disease: No Anxiety: Yes Heart Rhythm Problems: Yes (ATRIAL FIBRILATION) Cancer: No Cardiovascular Problems: Yes (htn on meds) High Cholesterol: Yes Chemotherapy: Yes (COLON CA) Chest Pain: Yes Congestive Heart Failure: Yes COPD: Yes Cerebrovascular Accident: No Coronary Artery Disease: Yes Diabetes: No Diminished Hearing: Yes Endocrine: No Gastrointestinal Disorders: No GERD: Yes Glaucoma: No Genitourinary: Yes (PROSTATE) Headaches: No Hepatitis: No Hiatal Hernia: No Hypertension: Yes Immune Disorder: No Implanted Vascular Access Dvce: No Kidney Stones: No Musculoskeletal: Yes (ARTHRITIS) Neurologic: No Psychiatric: No Reproductive: No Respiratory: Yes (COPD) Immunizations Current: Yes Migraines: No Pneumonia: Yes Radiation Therapy: No Renal Failure: No Seizures: No Sleep Apnea: No Thyroid Disease: No ?: Not Past Surgical History Abdominal Surgery: Yes (UMBILIC HERNIA 1997, COLON RESECTION 08/04/14) AICD: No Appendectomy: Yes (MAR 2014) Arteriovenous Shunt: No Eye Surgery: Yes (cataracts) Genitourinary Surgery: Yes (COLD THERAPY ON BLADDER, TURP 08/06) Insulin Pump: No Neurologic Surgery: No Pacemaker: No Tonsillectomy: Yes Other Surgery: Yes (TURP) Social History Alcohol Use: No Tobacco Use: No (former) Substance Use: No Allergies-Medications (Allergen,Severity, Reaction): Coded Allergies: No Known Allergies (Verified , 11/03/16) Reported Meds & Prescriptions Reported Meds & Active Scripts Active Percocet (Oxycodone-Acetaminophen) 5-325 mg Tab 1-2 Tab PO Q4H PRN Medrol Dosepak (Methylprednisolone) 4 Mg Dspk 4 Mg PO DIRECTED Per Pharmacist direction Alprazolam 0.25 Mg Tab 0.25 Mg PO Q8H PRN Taztia Xt (Diltiazem ER 24 HR) 240 Mg Caper 240 Mg PO DAILY Metoprolol Tartrate 50 Mg Tab 50 Mg PO BID Lasix (Furosemide) 20 Mg Tab 20 Mg PO DAILY Potassium Chloride ER (Potassium Chloride) 10 Meq Cap 10 Meq PO EVERY OTHER DAY Nebulizer 1 Mis Mis 1 Ea .ROUTE DIRECTED Spiriva Respimat Inh (Tiotropium Inh) 1.25 Mcg/Act Aero 2 Puff INH DAILY 1.25 mcg = 1 inhalation Oxygen tank (Oxygen) 1 Ea Tank 2 Liter PAUL.CANULA CONTINUOUS Oxygen Concentrator Portable Gaseous 2 L/min via Nasal Cannula Continuous For 99 months Reported Lortab (Hydrocodone-Acetaminophen) 10-325 Mg Tab 1 Tab PO Q6H PRN Fluticasone Nasal [place] 50 Mcg/Act Naspr 50 Mcg EACH NARE BID 50 mcg/spray Duoneb (Ipratropium-Albuterol Neb) 0.5-2.5 Mg/3 Ml Neb 1 Nebule INH BID Proair Hfa 8.5 GM Inh (Albuterol Sulfate) 90 Mcg/Act Aer 1 Puff INH Q4H PRN 108 mcg/actuation Aspirin 81 Mg Tabdr 81 Mg PO DAILY Review of Systems General / Constitutional: No: Fever, Chills Eyes: No: Diploplia HENT: No: Headaches, Vertigo Cardiovascular: No: Chest Pain or Discomfort, Palpitations Respiratory: Positive: Shortness of Breath Gastrointestinal: No: Vomiting, Diarrhea Genitourinary: No: Urgency, Frequency Musculoskeletal: Positive: Pain, No: Myalgias, Arthralgias Skin: No Rash Neurologic: Positive: Weakness, No: Focal Abnormalities Endocrine: No: Heat Intolerance, Cold Intolerance Hematologic/Lymphatic: No: Easy Bruising Physical Exam Narrative GENERAL: Well-developed male SKIN: Focused skin assessment warm/dry. HEAD: Atraumatic. Normocephalic. EYES: Pupils equal and round. No scleral icterus. No injection or drainage. ENT: No nasal bleeding or discharge. Mucous membranes pink and moist. NECK: Trachea midline. No JVD. CARDIOVASCULAR: Irregular rate and rhythm. No murmur appreciated. RESPIRATORY: No accessory muscle use. Clear to auscultation. Breath sounds equal bilaterally. GASTROINTESTINAL: Abdomen soft, non-tender, nondistended. Hepatic and splenic margins not palpable. MUSCULOSKELETAL: No obvious deformities. No clubbing. No cyanosis. Bilateral pedal edema NEUROLOGICAL: Awake and alert. No obvious cranial nerve deficits. He has good strength in plantar and dorsiflexion bilaterally sensation of the legs appears to be intact. Normal speech. PSYCHIATRIC: Appropriate mood and affect; insight and judgment normal. Data Data Last Documented VS Vital Signs Date Time Temp Pulse Resp B/P Pulse Ox O2 Delivery O2 Flow Rate FiO2 11/03/16 10:40 18 96 Room Air 11/03/16 10:39 94 162/95 11/03/16 08:49 98.3 Orders Electrocardiogram (11/03/16 08:13) Complete Blood Count With Diff (11/03/16 08:13) Comprehensive Metabolic Panel (11/03/16 08:13) Troponin I (11/03/16 08:13) B-Type Natriuretic Peptide (11/03/16 08:13) Prothrombin Time / Inr (Pt) (11/03/16 08:13) Act Partial Throm Time (Ptt) (11/03/16 08:13) Urinalysis - C+S If Indicated (11/03/16 08:13) Magnesium (Mg) (11/03/16 08:13) Chest, Single Ap (11/03/16 08:13) Albuterol-Ipratropium Neb (Duoneb Neb) (11/03/16 08:15) Ondansetron Inj (Zofran Inj) (11/03/16 08:15) Hydromorphone Pf Inj (Dilaudid Pf Inj) (11/03/16 08:15) Ct Pulmonary Angiogram (11/03/16 09:31) Iohexol 350 Inj (Omnipaque 350 Inj) (11/03/16 10:30) Labs Laboratory Tests Test 11/03/16 11/03/16 11/03/16 08:38 08:58 09:02 White Blood Count 15.3 TH/MM3 Red Blood Count 5.75 MIL/MM3 Hemoglobin 13.8 GM/DL Hematocrit 42.1 % Mean Corpuscular Volume 73.3 FL Mean Corpuscular Hemoglobin 23.9 PG Mean Corpuscular Hemoglobin 32.7 % Concent Red Cell Distribution Width 16.8 % Platelet Count 253 TH/MM3 Mean Platelet Volume 7.3 FL Neutrophils (%) (Auto) 90.7 % Lymphocytes (%) (Auto) 2.5 % Monocytes (%) (Auto) 5.7 % Eosinophils (%) (Auto) 0.0 % Basophils (%) (Auto) 1.1 % Neutrophils # (Auto) 13.8 TH/MM3 Lymphocytes # (Auto) 0.4 TH/MM3 Monocytes # (Auto) 0.9 TH/MM3 Eosinophils # (Auto) 0.0 TH/MM3 Basophils # (Auto) 0.2 TH/MM3 CBC Comment AUTO DIFF Differential Comment AUTO DIFF CONFIRMED Keratocytes OCC Prothrombin Time 11.2 SEC Prothromb Time International 1.0 RATIO Ratio Activated Partial 23.2 SEC Thromboplast Time B-Type Natriuretic Peptide 174 PG/ML Urine Collection Type CLEAN CATCH Urine Color STRAW Urine Turbidity CLEAR Urine pH 5.5 Urine Specific [place] 1.008 Urine Protein NEG mg/dL Urine Glucose (UA) 100 mg/dL Urine Ketones NEG mg/dL Urine Occult Blood NEG Urine Nitrite NEG Urine Bilirubin NEG Urine Leukocyte Esterase NEG Urine RBC 0-3 /hpf Urine Squamous Epithelial 0-5 /hpf Cells Microscopic Urinalysis Comment CULT NOT INDICATED Urine Collection Time 08:58 Sodium Level 131 MEQ/L Potassium Level 4.7 MEQ/L Chloride Level 91 MEQ/L Carbon Dioxide Level 33.2 MEQ/L Anion Gap 7 MEQ/L Blood Urea Nitrogen 35 MG/DL Creatinine 0.95 MG/DL Estimat Glomerular Filtration 75 ML/MIN Rate Random Glucose 256 MG/DL Calcium Level 9.3 MG/DL Magnesium Level 2.2 MG/DL Total Bilirubin 0.6 MG/DL Aspartate Amino Transf 35 U/L (AST/SGOT) Alanine Aminotransferase 42 U/L (ALT/SGPT) Alkaline Phosphatase 138 U/L Troponin I LESS THAN 0.02 NG/ML Total Protein 6.5 GM/DL Albumin 2.9 GM/DL [facility] Medical Decision Making Medical Screen Exam Complete: Yes Emergency Medical Condition: Yes Medical Record Reviewed: Yes Differential Diagnosis Differential includes pulmonary embolus, pneumonia, electrolyte imbalance, exacerbation of back pain Narrative Course I have once again offered to do an MRI of the patient is quite adamant that he won't have it done here. His lab work is unremarkable. A CT scan of the chest was done with this combination of dyspnea and his sense of near syncope I felt that pulmonary embolus possible. CT does not show a pulmonary embolus but does show a small area of consolidation. 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 I recommended admission to the patient but is quite insistent on going home. I will prescribe Levaquin 500 milligrams daily. Diagnosis Primary Impression: Pneumonia Qualified Code: J18.9 - Pneumonia due to infectious organism, unspecified laterality, unspecified part of lung Scripts Levofloxacin (Levaquin)500 Mg Xvt248 Mg PO DAILY #7 TAB Ref 0 Prov:Aftab Paz MD 11/03/16 Disposition: 01 DISCHARGE HOME Condition: Stable Aftab Paz MD November 03, 2016 08:34
--- NOTE | 2016-11-03 08:41 | RADHPO ---
EXAM DATE/TIME: 11/03/2016 08:33 [place] COMPARISON: CT THORAX W CONTRAST, September 04, 2016, 11:30. CHEST SINGLE AP, September 04, 2016, 9:57. INDICATIONS : Short of breath MEDICAL HISTORY : Carcinoma, lung. Chronic obstructive pulmonary disease. SURGICAL HISTORY : None. ENCOUNTER: Initial ACUITY: 1 day PAIN SCORE: 0/10 LOCATION: Bilateral chest FINDINGS: A single AP erect portable view of the chest was obtained and again demonstrates a mass in the left l rishi apex. Unchanged are present aorta with tortuosity and calcification. There is mild scarring or at electasis at the lung bases. There are no new confluent infiltrates or effusions. The heart size fay ins mildly prominent. CONCLUSION: 1. Mild scarring at the lung bases with no acute cardiopulmonary disease. 2. Known mass again identified left lung apex. Zach Garcia MD on November 03, 2016 at 8:37 Board Certified Radiologist. This report was verified electronically.
[2016-11-03 08:49] VITALS: BP 164/93; PULSE 87; RESP 18; TEMP 98.3; O2SAT 97
[2016-11-03 08:53] LABS: AUTOMATED NEUTROPHIL # 13.8 TH/MM3 (1.8-7.7); BASOPHIL # 0.2 TH/MM3 (0-0.2); BASOPHIL % 1.1 % (0.0-2.0); HEMATOCRIT 42.1 % (39.0-51.0); LYMPH % 2.5 % (9.0-44.0); LYMPHOCYTE # 0.4 TH/MM3 (1.0-4.8); MEAN CELL VOLUME 73.3 FL (80.0-100.0); MEAN CORPUSCULAR HEMOGLOBIN 23.9 PG (27.0-34.0); MEAN CORPUSCULAR HGB CONC 32.7 % (32.0-36.0); MONO % 5.7 % (0.0-8.0); NEUT % 90.7 % (16.0-70.0); PLATELET COUNT 253 TH/MM3 (150-450); RED BLOOD COUNT 5.75 MIL/MM3 (4.50-5.90); RED CELL DISTRIBUTION WIDTH 16.8 % (11.6-17.2); WHITE BLOOD COUNT 15.3 TH/MM3 (4.0-11.0)
[2016-11-03 08:58] LABS: APTT (PATIENT) 23.2 SEC (24.3-30.1); PROTHROMBIN TIME - PATIENT 11.2 SEC (9.8-11.6)
[2016-11-03 09:05] LABS: BLOOD, URINE NEG (NEG); GLUCOSE,URINE 100 mg/dL (NEG); KETONE, URINE NEG (NEG); NITRITE,URINE NEG (NEG); PH, URINE 5.5 (5.0-8.5)
[2016-11-03 09:10] VITALS: BP 156/97; PULSE 78; RESP 18; O2SAT 98
[2016-11-03 09:12] LABS: COMMENT (UR) CULT NOT INDICATED; CULTURE IF INDICATED CULT NOT INDICATED; METHOD OF COLLECTION CLEAN CATCH; RBC, URINE 0-3 /hpf (0-3); SQUAMOUS EPITHELIAL CELL URINE 0-5 /hpf (0-5); URINE COLOR STRAW (YELLW/STRAW)
[2016-11-03 09:13] LABS: CHLORIDE 91 MEQ/L (98-107); POTASSIUM 4.7 MEQ/L (3.5-5.1); SODIUM (NA) 131 MEQ/L (136-145)
[2016-11-03 09:16] LABS: ANION GAP 7 MEQ/L (5-15); BICARBONATE 33.2 MEQ/L (21.0-32.0); BLOOD UREA NITROGEN 35 MG/DL (7-18); MAGNESIUM 2.2 MG/DL (1.5-2.5)
[2016-11-03 09:19] LABS: ALT (GPT) 42 U/L (12-78)
[2016-11-03 09:20] LABS: AST (GOT) 35 U/L (15-37); GLOMERULAR FILTRATION RATE 75 ML/MIN (>89)
[2016-11-03 09:21] LABS: TOTAL BILIRUBIN ADULT 0.6 MG/DL (0.2-1.0)
[2016-11-03 09:22] LABS: ALKALINE PHOSPHATASE 138 U/L (45-117)
[2016-11-03 09:25] LABS: HEMO FLAGS AUTO DIFF
[2016-11-03 09:26] LABS: KERATOCYTES OCC (NORMAL); SCAN/DIFF AUTO DIFF CONFIRMED
[2016-11-03] MEDS ORDERED: IOHEXOL 350 MG/ML 10 ML VIAL (for RAD DIAG) IV ONE (10:30)
--- NOTE | 2016-11-03 10:38 | RADHPO ---
EXAM DATE/TIME: 11/03/2016 10:11 [facility] COMPARISON: CT PULMONARY ANGIOGRAM, December 20, 2015, 15:46. INDICATIONS : Increased dyspnea since yesterday. Known lung mass. IV CONTRAST: 65 cc Omnipaque 350 (iohexol) IV RADIATION DOSE: 19.70 CTDIvol (mGy) MEDICAL HISTORY : Hypertension. Chronic obstructive pulmonary disease. Carcinoma, colon. SURGICAL HISTORY : Colon resection. Umbilical hernia repair. ENCOUNTER: Initial ACUITY: 2 days PAIN SCALE: 0/10 LOCATION: chest TECHNIQUE: Volumetric scanning of the chest was performed using a pulmonary embolism protocol MIP images were re constructed. Using automated exposure control and adjustment of the mA and/or kV according to patien t size, radiation dose was kept as low as reasonably achievable to obtain optimal diagnostic quality images. FINDINGS: PULMONARY ARTERIES: No filling defects are seen in the pulmonary arteries through the segmental level. LUNGS: There is no pneumothorax . There is mild consolidation now noted in the right lower lobe. The known l eft apical mass is not significantly changed. There are no new masses or nodules. No concerning pulmo nary nodule is visualized. PLEURAE: There is no pleural thickening or pleural effusion. MEDIASTINUM: There is good visualization of the great vessels of the middle mediastinum. No evidence of mediastin al or hilar adenopathy/mass. Atherosclerotic calcifications are present. MUSCULOSKELETAL: Within normal limits for patient age. MISCELLANEOUS: The visualized upper abdominal organs demonstrate no acute abnormality. CONCLUSION: 1. No evidence of pulmonary embolism. 2. The known large mass in the left lung apex is not significantly changed. 3. Mild consolidation is now noted in the right lower lobe which could indicate pneumonia. Zach Garcia MD on November 03, 2016 at 10:32 Board Certified Radiologist. This report was verified electronically.
[2016-11-03 10:39] VITALS: BP 162/95; PULSE 94; RESP 18; O2SAT 95
[2016-11-03] MEDS ORDERED: LEVA500T PO (11:11)
[2016-11-03] MEDS ORDERED: LEVOFLOXACIN 500 MG TAB PO ONE (11:15)
--- NOTE | 2016-11-04 11:30 | EKG ---
Date Performed: 11/03/2016 Time Performed: 08:23:28 PTAGE: 86 years EKG: Atrial fibrillation Right bundle branch block Abnormal ECG PREVIOUS TRACING : 09/04/2016 09.46 DOCTOR: David Gimenez Interpretating Date/Time 11/04/2016 11:23:05
[2016-11-07] MEDS ORDERED: TRAM50TA PO (11:53)
[2016-12-12] MEDS ORDERED: METO-426 PO (15:57)
[2016-12-12] MEDS ORDERED: ALPR0.25 PO (15:57)
[2016-12-12] MEDS ORDERED: ALPR0.5T3 PO (16:17)
== END 2016-11-03 11:33 | disposition home or self-care (01) ==
LOC: PHED 07:50
DX: J18.9 Pneumonia, unspecified organism (principal); I45.10 Unspecified right bundle-branch block; R60.0 Localized edema; I48.91 Unspecified atrial fibrillation; R06.02 Shortness of breath; I10 Essential (primary) hypertension; J44.9 Chronic obstructive pulmonary disease, unspecified; I50.9 Heart failure, unspecified; I25.10 Atherosclerotic heart disease of native coronary artery without angina pectoris; K21.9 Gastro-esophageal reflux disease without esophagitis; Z79.82 Long term (current) use of aspirin; Z87.891 Personal history of nicotine dependence
CPT/HCPCS: 71010; 71275; 80053; 81001; 83735; 83880; 84484; 85025; 85610; 85730; 93005; 94664; 96374; 96375; 99285; J1170; J2405; Q9967

== ENCOUNTER 2016-11-30 07:55 | Inpatient (IN) | payer MEDICARE ==
[2016-11-30] VITALS (11 sets, daily range): BP systolic 142–180; BP diastolic 84–113; PULSE 75–124; RESP 16–21; TEMP 95.7–97.6; O2SAT 94–99
[~2016-11-30 07:55] MED LIST changes: +LEVA500T PO; -PERC5TAB12 PO; +TRAM50TA PO
[2016-11-30] MEDS ORDERED: LISI20TA PO (08:10)
[2016-11-30] MEDS ORDERED: SODIUM CHLORIDE 0.9% FLUSH 10 ML FLUSH IVF PRN (08:30)
[2016-11-30] MEDS ORDERED: RESP: ALBUTEROL 2.5 MG/3 ML NEB (SCH) INH ONE (08:30)
[2016-11-30 08:37] LABS: AUTOMATED NEUTROPHIL # 7.9 TH/MM3 (1.8-7.7); BASOPHIL % 0.4 % (0.0-2.0); EOSINOPHIL # 0.1 TH/MM3 (0-0.4); EOSINOPHIL % 0.7 % (0.0-4.0); HEMATOCRIT 37.5 % (39.0-51.0); LYMPH % 5.4 % (9.0-44.0); LYMPHOCYTE # 0.5 TH/MM3 (1.0-4.8); MEAN CORPUSCULAR HEMOGLOBIN 23.5 PG (27.0-34.0); MEAN CORPUSCULAR HGB CONC 32.3 % (32.0-36.0); MONO % 5.9 % (0.0-8.0); NEUT % 87.6 % (16.0-70.0); PLATELET COUNT 194 TH/MM3 (150-450); RED BLOOD COUNT 5.14 MIL/MM3 (4.50-5.90)
[2016-11-30 08:40] LABS: HEMO FLAGS AUTO DIFF
--- NOTE | 2016-11-30 08:43 | PD ---
HPI Chief Complaint: Respiratory Symptoms Time Seen by Provider: 08:01 Travel History International Travel<30 days: No Contact w/Intl Traveler<30days: No Traveled to known affect area: No History of Present Illness HPI 86 yo M c/o dyspnea for about one day. He has liver CA and is currently undergoing RTX with last dose last night. He reports 24/7 home oxygen for CHF and COPD. No fever/chills. No new cough reported. He denies chest pain. Chronic bilateral lower extremity swelling noted, no worse than usual per patient. Cardiology is Dr Grewal. Pulmonology is Dr Melton. PMD is Dr Martin. [facility] Past Medical History Hx Anticoagulant Therapy: Yes (81mg asa) Arthritis: Yes Asthma: No Atrial Fibrillation: Yes Autoimmune Disease: No Anxiety: Yes Heart Rhythm Problems: Yes (ATRIAL FIBRILATION) Cardiovascular Problems: Yes High Cholesterol: Yes Chemotherapy: Yes (COLON CA) Chest Pain: Yes Congestive Heart Failure: Yes COPD: Yes Cerebrovascular Accident: No Coronary Artery Disease: Yes Diabetes: No Diminished Hearing: Yes Endocrine: No Gastrointestinal Disorders: No GERD: Yes Glaucoma: No Genitourinary: Yes (PROSTATE) Headaches: No Hepatitis: No Hiatal Hernia: No Hypertension: Yes Immune Disorder: No Implanted Vascular Access Dvce: No Kidney Stones: No Musculoskeletal: Yes (ARTHRITIS) Neurologic: No Psychiatric: No Reproductive: No Respiratory: Yes Immunizations Current: Yes Migraines: No Pneumonia: Yes Radiation Therapy: Yes (liver mass) Renal Failure: No Seizures: No Sleep Apnea: No Thyroid Disease: No Tetanus Vaccination: < 5 Years Influenza Vaccination: Yes ?: Not Past Surgical History Abdominal Surgery: Yes (UMBILIC HERNIA 1997, COLON RESECTION 08/04/14) AICD: No Appendectomy: Yes (MAR 2014) Arteriovenous Shunt: No Eye Surgery: Yes (cataracts) Genitourinary Surgery: Yes (COLD THERAPY ON BLADDER, TURP 08/06) Insulin Pump: No Neurologic Surgery: No Pacemaker: No Tonsillectomy: Yes Other Surgery: Yes (TURP) Social History Alcohol Use: No Tobacco Use: No (former) Substance Use: No Allergies-Medications (Allergen,Severity, Reaction): Coded Allergies: No Known Allergies (Verified , 11/30/16) Reported Meds & Prescriptions Reported Meds & Active Scripts Active Alprazolam 0.25 Mg Tab 0.25 Mg PO Q8H PRN Taztia Xt (Diltiazem ER 24 HR) 240 Mg Caper 240 Mg PO DAILY Metoprolol Tartrate 50 Mg Tab 50 Mg PO BID Lasix (Furosemide) 20 Mg Tab 20 Mg PO DAILY Oxygen tank (Oxygen) 1 Ea Tank 2 Liter PAUL.CANULA CONTINUOUS Oxygen Concentrator Portable Gaseous 2 L/min via Nasal Cannula Continuous For 99 months Reported Lisinopril-Hctz 20-12.5 Mg Tab 1 Tab PO DAILY Fluticasone Nasal [place] 50 Mcg/Act Naspr 50 Mcg EACH NARE BID 50 mcg/spray Duoneb (Ipratropium-Albuterol Neb) 0.5-2.5 Mg/3 Ml Neb 1 Nebule INH BID Proair Hfa 8.5 GM Inh (Albuterol Sulfate) 90 Mcg/Act Aer 1 Puff INH Q4H PRN 108 mcg/actuation Review of Systems Except as stated in HPI: all other systems reviewed are Neg Physical Exam Narrative GENERAL: 86 yo M, chronically ill in appearance, pleasant, speaking full sentences SKIN: Warm and dry. erythema about the bilateral lower extremities and occasionally about the arms. HEAD: Atraumatic. Normocephalic. EYES: Pupils equal and round. No scleral icterus. No injection or drainage. ENT: No nasal bleeding or discharge. Mucous membranes pink and moist. NECK: Trachea midline. No JVD. CARDIOVASCULAR: Irregular. Tachycardia. RESPIRATORY: Mild tachypnea. Occasional wheezing. GASTROINTESTINAL: Abdomen soft, non-tender, nondistended. Hepatic and splenic margins not palpable. MUSCULOSKELETAL: 4+ pitting edema of the bilateral lower extremities. No gross deformity otherwise. Moving all extremities. NEUROLOGICAL: Awake and alert. No obvious cranial nerve deficits. Motor grossly within normal limits. Five out of 5 muscle strength in the arms and legs. Normal speech. PSYCHIATRIC: Appropriate mood and affect; insight and judgment normal. Data Data Last Documented VS Vital Signs Date Time Temp Pulse Resp B/P Pulse Ox O2 Delivery O2 Flow Rate FiO2 11/30/16 10:24 124 20 169/105 99 Nasal Cannula 2 11/30/16 08:01 97.6 VS reviewed Orders Complete Blood Count With Diff (11/30/16 08:16) Comprehensive Metabolic Panel (11/30/16 08:16) B-Type Natriuretic Peptide (11/30/16 08:16) Act Partial Throm Time (Ptt) (11/30/16 08:16) Prothrombin Time / Inr (Pt) (11/30/16 08:16) Ckmb (Isoenzyme) Profile (11/30/16 08:16) Troponin I (11/30/16 08:16) Iv Access Insert/Monitor (11/30/16 08:16) Electrocardiogram (11/30/16 08:16) Ecg Monitoring (11/30/16 08:16) Oximetry (11/30/16 08:16) Oxygen Administration (11/30/16 08:16) Chest, Single Ap (11/30/16 08:16) Sodium Chloride 0.9% Flush (Ns Flush) (11/30/16 08:30) Albuterol Neb (Albuterol Neb) (11/30/16 08:30) Diltiazem Inj (Cardizem Inj) (11/30/16 09:15) Diltiazem Inj (Cardizem Inj) (11/30/16 09:15) Albuterol-Ipratropium Neb (Duoneb Neb) (11/30/16 09:15) Furosemide Inj (Lasix Inj) (11/30/16 09:30) Methylprednisolone So Succ Inj (Solumedr (11/30/16 09:30) Alprazolam (Xanax) (11/30/16 10:45) Diltiazem Inj (Cardizem Inj) (11/30/16 11:00) Admit Order (Ed Use Only) (11/30/16 11:02) Labs Laboratory Tests Test 11/30/16 08:25 White Blood Count 9.0 TH/MM3 Red Blood Count 5.14 MIL/MM3 Hemoglobin 12.1 GM/DL Hematocrit 37.5 % Mean Corpuscular Volume 73.0 FL Mean Corpuscular Hemoglobin 23.5 PG Mean Corpuscular Hemoglobin 32.3 % Concent Red Cell Distribution Width 18.0 % Platelet Count 194 TH/MM3 Mean Platelet Volume 6.8 FL Neutrophils (%) (Auto) 87.6 % Lymphocytes (%) (Auto) 5.4 % Monocytes (%) (Auto) 5.9 % Eosinophils (%) (Auto) 0.7 % Basophils (%) (Auto) 0.4 % Neutrophils # (Auto) 7.9 TH/MM3 Lymphocytes # (Auto) 0.5 TH/MM3 Monocytes # (Auto) 0.5 TH/MM3 Eosinophils # (Auto) 0.1 TH/MM3 Basophils # (Auto) 0.0 TH/MM3 CBC Comment AUTO DIFF Differential Comment AUTO DIFF CONFIRMED Prothrombin Time 11.4 SEC Prothromb Time International 1.0 RATIO Ratio Activated Partial 25.9 SEC Thromboplast Time Sodium Level 140 MEQ/L Potassium Level 3.8 MEQ/L Chloride Level 103 MEQ/L Carbon Dioxide Level 30.5 MEQ/L Anion Gap 7 MEQ/L Blood Urea Nitrogen 26 MG/DL Creatinine 0.74 MG/DL Estimat Glomerular Filtration 100 ML/MIN Rate Random Glucose 164 MG/DL Calcium Level 8.9 MG/DL Total Bilirubin 0.3 MG/DL Aspartate Amino Transf 27 U/L (AST/SGOT) Alanine Aminotransferase 32 U/L (ALT/SGPT) Alkaline Phosphatase 164 U/L Total Creatine Kinase 71 U/L Troponin I 0.02 NG/ML B-Type Natriuretic Peptide 317 PG/ML Total Protein 5.6 GM/DL Albumin 2.3 GM/DL MDM Medical Decision Making Medical Screen Exam Complete: Yes Emergency Medical Condition: Yes Medical Record Reviewed: Yes Differential Diagnosis COPD, CHF, anemia, electrolyte imbalance, neutropenic fever, sepsis, renal failure, cellulitis, PNA Narrative Course EKG: rate 118, irregular, RBBB pattern Last 24 hours Impressions Chest X-Ray 11/30/16 0816 Signed Impressions: Service Date/Time: Friday, November 30, 2016 08:30 - CONCLUSION: No significant interval change. Persistent bilateral lower lung zone opacity likely represent atelectasis and left upper lung mass. Bryan Strong MD CBC & BMP Diagram 11/30/16 08:25 BNP 317 Tn < 0.02 LFTs normal INR 1.0 Multiple rounds nebs given with good effect. Lasix given. Pt will be admitted for CHF/COPD with dyspnea and for AFIB w RVR. Diltiazem given twice. Dilt drip started. d/w Dr Duggan Critical Care Narrative Aggregate critical care time was 35 minutes. Time to perform other separately billable procedures was not included in the critical care time. My time did not include minutes spent treating any other patients simultaneously or on activities that did not directly contribute to the patient's treatment. The services I provided to this patient were to treat and/or prevent clinically significant deterioration that could result in: cardiopulmonary arrest I provided critical care services requiring my management, as noted below: Chart data review, documentation time, medication orders and management, vital sign assessments/reviewing monitor data, ordering and reviewing lab tests, ordering and interpreting/reviewing x-rays and diagnostic studies, care of the patient and discussion of the patient with the admitting physicians. Diagnosis Primary Impression: Atrial fibrillation with RVR Additional Impressions: CHF (congestive heart failure) Qualified Code: I50.9 - Congestive heart failure, unspecified congestive heart failure chronicity, unspecified congestive heart failure type COPD exacerbation Admitting Information Admitting Physician Requests: Milo Garcia MD Nov 30, 2016 08:43
[2016-11-30 08:45] LABS: CHLORIDE 103 MEQ/L (98-107); POTASSIUM 3.8 MEQ/L (3.5-5.1); SODIUM (NA) 140 MEQ/L (136-145)
[2016-11-30 08:49] LABS: ANION GAP 7 MEQ/L (5-15); BICARBONATE 30.5 MEQ/L (21.0-32.0)
[2016-11-30 08:50] LABS: APTT (PATIENT) 25.9 SEC (24.3-30.1); BLOOD UREA NITROGEN 26 MG/DL (7-18); PROTHROMBIN TIME - PATIENT 11.4 SEC (9.8-11.6)
[2016-11-30 08:52] LABS: ALT (GPT) 32 U/L (12-78); AST (GOT) 27 U/L (15-37)
[2016-11-30 08:53] LABS: GLOMERULAR FILTRATION RATE 100 ML/MIN (>89)
[2016-11-30 08:54] LABS: TOTAL BILIRUBIN ADULT 0.3 MG/DL (0.2-1.0)
[2016-11-30 08:55] LABS: ALKALINE PHOSPHATASE 164 U/L (45-117)
[2016-11-30 09:06] LABS: SCAN/DIFF AUTO DIFF CONFIRMED
[2016-11-30 09:11] LABS: CREATINE KINASE 71 U/L (39-308)
[2016-11-30] MEDS: RESP: ALBUTEROL 2.5 MG/IPRATROPIUM 0.5 MG NEB (SCH) INH ×2 (09:12→09:13)
[2016-11-30] MEDS ORDERED: DILTIAZEM HCL 25 MG/5 ML VIAL IV ONE ×2 (09:15)
--- NOTE | 2016-11-30 09:17 | RADHPO ---
EXAM DATE/TIME: 11/30/2016 08:30 [facility] COMPARISON: CHEST SINGLE AP, November 03, 2016, 8:33. INDICATIONS : Short of breath MEDICAL HISTORY : Carcinoma, lung. Chronic obstructive pulmonary disease. Carcinoma liver SURGICAL HISTORY : None. ENCOUNTER: Initial ACUITY: 1 day PAIN SCORE: 0/10 LOCATION: Bilateral chest FINDINGS: Single AP view of the chest. Persistent elevation of the right hemidiaphragm. Mild patchy bibasilar o pacity unchanged. Left upper lung mass again seen. Cardiomediastinal silhouette unchanged. No evidenc e of pleural effusion or pneumothorax. CONCLUSION: No significant interval change. Persistent bilateral lower lung zone opacity likely represent atelect asis and left upper lung mass. Bryan Strong MD on November 30, 2016 at 9:14 Board Certified Radiologist. This report was verified electronically.
[2016-11-30] MEDS ORDERED: methylPREDNISolone SOD SUCC 125 MG/2 ML VIAL IVP ONE (09:30)
[2016-11-30] MEDS ORDERED: FUROSEMIDE 40 MG/4 ML VIAL IVP ONE (09:30)
[2016-11-30] MEDS ORDERED: ALPRAZolam 0.5 MG TAB PO ONE (10:45)
[2016-11-30] MEDS ORDERED: DILTIAZEM INJ 125 MG in SODIUM CHLORIDE 0.9% INJ 100 ML IV SCH (11:00)
--- NOTE | 2016-11-30 11:44 | HHI.HP ---
[facility] Meagan Martin MD Admission Diagnosis AFib RVR, Dyspnea, CHF, COPD Diagnoses: (1) Atrial fibrillation with RVR Diagnosis: Principal Chief Complaint: shortness of breath Travel History International Travel<30 Days: No Contact w/Intl Traveler <30 Da: No Traveled to Known Affected Are: No History of Present Illness patient is a 86 y/o male, known to me from previous admission, who presented to ER with sob. he was recently diagnosed with metastatic liver cancer and just started on radiation therapy. he says that he's had two sessions of radiation. since then he's been feeling weak. he says that he started to have some sob yesterday which gradually got worse. he denies any orthopnea, chest pain, cough , fever or chills. he denies any palpitations.he has a history of COPD and is oxygen dependent. Review of Systems Constitutional: COMPLAINS OF: Fatigue, DENIES: Fever, Weight loss, Chills, Night Sweats Eyes: DENIES: Blurred vision, Diplopia, Vision loss, Double Vision Ears, nose, mouth, throat: DENIES: Tinnitus, Vertigo, Throat pain, Epistaxis Respiratory: DENIES: Apneas, Cough, Snoring, Wheezing, Hemoptysis, Sputum production, Shortness of breath Cardiovascular: COMPLAINS OF: Dyspnea on Exertion, Lower Extremity Edema, DENIES: Chest pain, Palpitations, Syncope, PND, Orthopnea, Claudication Gastrointestinal: DENIES: Abdominal pain, Black stools, Bloody stools, Constipation, Diarrhea, Nausea, Vomiting, Difficulty Swallowing, Anorexia Genitourinary: DENIES: Urinary frequency, Urgency, Hematuria, Dysuria Musculoskeletal: DENIES: Joint pain, Muscle aches, Stiffness, Joint Swelling Integumentary: DENIES: Rash Neurologic: DENIES: Abnormal gait, Headache, Localized weakness, Paresthesias, Seizures, Speech Problems, Tremor, Poor Balance Psychiatric: DENIES: Anxiety, Confusion, Mood changes, Depression, Hallucinations, Agitation, Suicidal Ideation, Homicidal Ideation, Delusions Past Family Social History Past Medical History atrial fibrillation COPD liver mets hypertension Past Surgical History colon resection prostate surgery Reported Medications Alprazolam 0.25 Mg Tab 0.25 Mg PO Q8H PRN Taztia Xt (Diltiazem ER 24 HR) 240 Mg Caper 240 Mg PO DAILY Metoprolol Tartrate 50 Mg Tab 50 Mg PO BID Lasix (Furosemide) 20 Mg Tab 20 Mg PO DAILY Oxygen tank (Oxygen) 1 Ea Tank 2 Liter PAUL.CANULA CONTINUOUS Oxygen Concentrator Portable Gaseous 2 L/min via Nasal Cannula Continuous For 99 months Lisinopril-Hctz 20-12.5 Mg Tab 1 Tab PO DAILY Fluticasone Nasal [place] 50 Mcg/Act Naspr 50 Mcg EACH NARE BID 50 mcg/spray Duoneb (Ipratropium-Albuterol Neb) 0.5-2.5 Mg/3 Ml Neb 1 Nebule INH BID Proair Hfa 8.5 GM Inh (Albuterol Sulfate) 90 Mcg/Act Aer 1 Puff INH Q4H PRN 108 mcg/actuation Allergies: Coded Allergies: No Known Allergies (Verified , 11/30/16) Active Ordered Medications Current Medications Sodium Chloride (NS Flush) 2 ml UNSCH PRN IVF FLUSH AFTER USING IV ACCESS Last administered on 11/30/16 09:08; Start 11/30/16 at 08:30 Albuterol Sulfate (Albuterol Neb) 2.5 mg ONCE ONCE INH Last administered on 08:53; Start 11/30/16 at 08:30; Stop 11/30/16 at 08:31; Status DC Diltiazem HCl (Cardizem Inj) 10 mg ONCE ONCE IV Last administered on 11/30/16 09:08; Start 11/30/16 at 09:15; Stop 11/30/16 at 09:16; Status DC Diltiazem HCl (Cardizem Inj) 10 mg ONCE ONCE IV Last administered on 11/30/16 09:29; Start 11/30/16 at 09:15; Stop 11/30/16 at 09:16; Status DC Albuterol/ Ipratropium (Duoneb Neb) 1 ampule Q15M INH Last administered on 09:13; Start 11/30/16 at 09:15; Stop 11/30/16 at 09:31; Status DC Furosemide (Lasix Inj) 40 mg ONCE ONCE IVP Last administered on 11/30/16 09:32 ; Start 11/30/16 at 09:30; Stop 11/30/16 at 09:31; Status DC Methylprednisolone Sodium Succinate (SoluMEDROL INJ) 125 mg ONCE ONCE IVP Last administered on 11/30/16 09:32; Start 11/30/16 at 09:30; Stop 11/30/16 at 09: 31; Status DC Alprazolam 0.5 mg 0.5 mg ONCE ONCE PO Last administered on 11/30/16 10:47; Start 11/30/16 at 10:45; Stop 11/30/16 at 10:46; Status DC Diltiazem HCl/ Sodium Chloride (Cardizem Inj/NS Inj) 125 ml @ 0 mls/hr TITRATE IV Last administered on 11/30/16 11:07; Start 11/30/16 at 11:00 Social History no smoking or drinking. Physical Exam Vital Signs Vital Signs Date Time Temp Pulse Resp B/P Pulse Ox O2 Delivery O2 Flow Rate FiO2 11/30/16 10:24 124 20 169/105 99 Nasal Cannula 2 11/30/16 10:04 115 20 180/99 99 Nasal Cannula 2 11/30/16 09:10 118 20 177/113 98 Nasal Cannula 2 11/30/16 08:53 97 Nasal Cannula 2.00 11/30/16 08:37 112 20 163/110 99 Nasal Cannula 2 11/30/16 08:22 99 Nasal Cannula 2 11/30/16 08:03 120 20 97 Room Air 11/30/16 08:01 97.6 112 20 168/109 96 Physical Exam GENERAL: This is a well-nourished, well-developed patient, in no apparent distress. SKIN: No rashes, ecchymoses or lesions. Cool and dry. HEAD: Atraumatic. Normocephalic. No temporal or scalp tenderness. EYES: Pupils equal round and reactive. Extraocular motions intact. No scleral icterus. No injection or drainage. ENT: Nose without bleeding, purulent drainage or septal hematoma. Throat without erythema, tonsillar hypertrophy or exudate. Uvula midline. Airway patent. NECK: Trachea midline. No JVD or lymphadenopathy. Supple, nontender, no meningeal signs. CARDIOVASCULAR: tachycardic with irregular rhythm RESPIRATORY: Clear to auscultation. Breath sounds equal bilaterally. No wheezes , rales, or rhonchi. GASTROINTESTINAL: Abdomen soft, non-tender, nondistended. No hepato-splenomegaly , or palpable masses. No guarding. MUSCULOSKELETAL: Extremities with bilateral pedal edema. NEUROLOGICAL: Awake and alert. Cranial nerves II through XII intact. Motor and sensory grossly within normal limits. Five out of 5 muscle strength in all muscle groups. Normal speech. Laboratory Laboratory Tests Test 11/30/16 08:25 White Blood Count 9.0 Red Blood Count 5.14 Hemoglobin 12.1 Hematocrit 37.5 Mean Corpuscular Volume 73.0 Mean Corpuscular Hemoglobin 23.5 Mean Corpuscular Hemoglobin 32.3 Concent Red Cell Distribution Width 18.0 Platelet Count 194 Mean Platelet Volume 6.8 Neutrophils (%) (Auto) 87.6 Lymphocytes (%) (Auto) 5.4 Monocytes (%) (Auto) 5.9 Eosinophils (%) (Auto) 0.7 Basophils (%) (Auto) 0.4 Neutrophils # (Auto) 7.9 Lymphocytes # (Auto) 0.5 Monocytes # (Auto) 0.5 Eosinophils # (Auto) 0.1 Basophils # (Auto) 0.0 CBC Comment AUTO DIFF Differential Comment AUTO DIFF CONFIRMED Prothrombin Time 11.4 Prothromb Time International 1.0 Ratio Activated Partial 25.9 Thromboplast Time Sodium Level 140 Potassium Level 3.8 Chloride Level 103 Carbon Dioxide Level 30.5 Anion Gap 7 Blood Urea Nitrogen 26 Creatinine 0.74 Estimat Glomerular Filtration 100 Rate Random Glucose 164 Calcium Level 8.9 Total Bilirubin 0.3 Aspartate Amino Transf 27 (AST/SGOT) Alanine Aminotransferase 32 (ALT/SGPT) Alkaline Phosphatase 164 Total Creatine Kinase 71 Troponin I 0.02 B-Type Natriuretic Peptide 317 Total Protein 5.6 Albumin 2.3 Result Diagram: 11/30/1682411/30/16824 Imaging Last Impressions Chest X-Ray 11/30/16815 Signed Impressions: Service Date/Time: Wednesday, November 30, 2016 08:30 - CONCLUSION: No significant interval change. Persistent bilateral lower lung zone opacity likely represent atelectasis and left upper lung mass. Bryan Strong MD EKG; atrial fibrillation with rapid ventricular response/ RBBB Assessment and Plan Assessment and Plan A/P - atrial fibrillation with rapid ventricular response started on Cardizem drip- will resume po metoprolol and cardizem; will try to taper off the cardizem drip, refused anticoagulation last time; still doesn't want to be anticoagulated. -COPD- oxygen dependent- neb treatment as needed. -chronic systolic CHF- continue diuretics, BB and CHARANJIT-I. -hypertension; resume metoprolol and cardizem -liver metastasis- on radiation therapy- f/u with oncology as outpatient. -DVT prophylaxis with Lovenox -consult PT tomorrow. Discussed Condition With ER physician and the patient. Physician Certification 2 Midnight Certification Type: Admission for Inpatient Services Order for Inpatient Services The services are ordered in accordance with Medicare regulations or non- Medicare payer requirements, as applicable. In the case of services not specified as inpatient-only, they are appropriately provided as inpatient services in accordance with the 2-midnight benchmark. Estimated LOS (days): 2 days is the estimated time the patient will need to remain in the hospital, assuming treatment plan goals are met and no additional complications. Post-Hospital Plan: Home Jose Duggan MD Nov 30, 2016 11:44
[2016-11-30] MEDS ORDERED: ENALAPRILAT 1.25 MG/ML VIAL IV PUSH PRN (12:00)
[2016-11-30] MEDS ORDERED: ALBUTEROL SULFATE 90 MCG/ACT HFA 8 GM INHALER INH PRN (12:00)
[2016-11-30] MEDS: METOPROLOL TARTRATE 50 MG TAB PO SCH ×2 (12:20→20:17)
[2016-11-30] MEDS: ENOXAPARIN SODIUM 40 MG/0.4 ML SYRINGE SQ SCH (12:21)
[2016-11-30] MEDS: DILTIAZEM HCL 30 MG TAB PO SCH ×3 (13:06→20:17)
--- NOTE | 2016-11-30 14:44 | EKG ---
Date Performed: 11/30/2016 Time Performed: 08:04:02 PTAGE: 86 years EKG: Atrial fibrillation with rapid ventricular response with PVC(s) or aberrant ventricular con duction Right bundle branch block Inferior T wave changes are nonspecific Since previous tracing 12/2016, no significant change. Abnormal ECG PREVIOUS TRACING : 11/03/2016 08.23 DOCTOR: Shawn Navarrete Interpretating Date/Time 11/30/2016 14:43:02
[2016-11-30] MEDS: RESP: ALBUTEROL 1.25 MG/3 ML NEB (PRN) NEB ×2 (16:18→21:02)
[2016-11-30] MEDS: ALPRAZolam 0.25 MG TAB PO PRN (20:17)
[2016-12-01 00:47] VITALS: BP 152/90; PULSE 88; RESP 18; TEMP 97; O2SAT 94
[2016-12-01 04:54] VITALS: BP 172/112; PULSE 90; RESP 16; TEMP 98.1; O2SAT 96
[2016-12-01] MEDS: ALPRAZolam 0.25 MG TAB PO PRN (04:59)
[2016-12-01] MEDS: RESP: ALBUTEROL 1.25 MG/3 ML NEB (PRN) NEB ×2 (07:21→15:09)
[2016-12-01 07:22] VITALS: O2SAT 97
[2016-12-01 08:00] VITALS: BP 179/112; PULSE 105; PULSE 99; RESP 26; TEMP 98; O2SAT 96
[2016-12-01] MEDS: METOPROLOL TARTRATE 50 MG TAB PO SCH (08:01)
[2016-12-01] MEDS: DILTIAZEM HCL 30 MG TAB PO SCH (08:02)
[2016-12-01] MEDS ORDERED: FUROSEMIDE 40 MG/4 ML VIAL IV PUSH SCH (09:00)
[2016-12-01] MEDS ORDERED: LISINOPRIL 20 MG TAB PO SCH (09:00)
[2016-12-01] MEDS ORDERED: HYDROCHLOROTHIAZIDE 12.5 MG CAP PO SCH (09:00)
--- NOTE | 2016-12-01 11:39 | HHI.PR ---
Subjective Remarks resting comfortably with no distress. no chest pain or sob. wants to go home today. d/w the RN. Objective Vitals Vital Signs Date Time Temp Pulse Resp B/P Pulse Ox O2 Delivery O2 Flow Rate FiO2 12/01/16 08:00 98.0 105 26 179/112 96 12/01/16 07:22 97 Nasal Cannula 2.00 12/01/16 04:54 98.1 90 16 172/112 96 12/01/16 00:47 97.0 88 18 152/90 94 11/30/16 21:42 96.1 84 16 171/105 96 11/30/16 21:00 97 Nasal Cannula 2.00 11/30/16 16:00 95.7 75 21 154/89 96 11/30/16 12:15 97.2 119 20 142/ 94 11/30/16 12:13 124 20 159/84 99 Nasal Cannula 2 I/O 11/30/16 11/30/16 11/30/16 12/01/16 12/01/16 12/01/16 07:00 15:00 23:00 07:00 15:00 23:00 Intake Total 600 ml Output Total 1650 ml 750 ml Balance -1050 ml -750 ml Intake Oral 600 ml Output Urine Total 1650 ml 750 ml # Voids 3 2 3 # Bowel Movements 0 1 Result Diagram: 11/30/16 0825 11/30/16 0825 Imaging Last Impressions Chest X-Ray 11/30/16 0816 Signed Impressions: Service Date/Time: Wednesday, November 30, 2016 08:30 - CONCLUSION: No significant interval change. Persistent bilateral lower lung zone opacity likely represent atelectasis and left upper lung mass. Bryan Strong MD Objective Remarks GENERAL: This is a well-nourished, well-developed patient, in no apparent distress. CARDIOVASCULAR: Regular rate and regular rhythm without murmurs, gallops, or rubs. RESPIRATORY: Clear to auscultation. Breath sounds equal bilaterally. No wheezes , rales, or rhonchi. GASTROINTESTINAL: Abdomen soft, non-tender, nondistended. Normal, active bowel sounds MUSCULOSKELETAL: Extremities with bilateral pedal edema. NEURO: Alert & Oriented x4 to person, place, time, situation. Moves all ext x4 Procedures none Medications and IVs Current Medications Sodium Chloride (NS Flush) 2 ml UNSCH PRN IVF FLUSH AFTER USING IV ACCESS Last administered on 11/30/16 09:08; Start 11/30/16 at 08:30 Albuterol Sulfate (Albuterol Neb) 2.5 mg ONCE ONCE INH Last administered on 08:53; Start 11/30/16 at 08:30; Stop 11/30/16 at 08:31; Status DC Diltiazem HCl (Cardizem Inj) 10 mg ONCE ONCE IV Last administered on 11/30/16 09:08; Start 11/30/16 at 09:15; Stop 11/30/16 at 09:16; Status DC Diltiazem HCl (Cardizem Inj) 10 mg ONCE ONCE IV Last administered on 11/30/16 09:29; Start 11/30/16 at 09:15; Stop 11/30/16 at 09:16; Status DC Albuterol/ Ipratropium (Duoneb Neb) 1 ampule Q15M INH Last administered on 09:13; Start 11/30/16 at 09:15; Stop 11/30/16 at 09:31; Status DC Furosemide (Lasix Inj) 40 mg ONCE ONCE IVP Last administered on 11/30/16 09:32 ; Start 11/30/16 at 09:30; Stop 11/30/16 at 09:31; Status DC Methylprednisolone Sodium Succinate (SoluMEDROL INJ) 125 mg ONCE ONCE IVP Last administered on 11/30/16 09:32; Start 11/30/16 at 09:30; Stop 11/30/16 at 09: 31; Status DC Alprazolam 0.5 mg 0.5 mg ONCE ONCE PO Last administered on 11/30/16 10:47; Start 11/30/16 at 10:45; Stop 11/30/16 at 10:46; Status DC Diltiazem HCl/ Sodium Chloride (Cardizem Inj/NS Inj) 125 ml @ 0 mls/hr TITRATE IV Last administered on 11/30/16 11:07; Start 11/30/16 at 11:00 Albuterol Sulfate (Proair Hfa Inh) 1 puff Q4H PRN INH SHORTNESS OF BREATH; Start 11/30/16 at 12:00 Alprazolam (Xanax) 0.25 mg Q8H PRN PO ANXIETY Last administered on 12/01/16 04: 59; Start 11/30/16 at 12:00 Metoprolol Tartrate (Lopressor) 50 mg BID PO Last administered on 12/01/16 08: 01; Start 11/30/16 at 12:00 Lisinopril (Prinivil) 20 mg DAILY PO Last administered on 12/01/16 08:02; Start 12/01/16 at 09:00 Diltiazem HCl (Cardizem) 30 mg QID PO Last administered on 12/01/16 08:02; Start 11/30/16 at 13:00 Albuterol Sulfate (Albuterol Neb) 1.25 mg Q2HR NEB PRN NEB SHORTNESS OF BREATH Last administered on 12/01/16 07:21; Start 11/30/16 at 12:00 Furosemide (Lasix Inj) 40 mg DAILY IV PUSH Last administered on 12/01/16 08:03 ; Start 12/01/16 at 09:00 Enoxaparin Sodium (Lovenox Inj) 40 mg Q24H SQ Last administered on 11/30/16 12: 21; Start 11/30/16 at 12:00 Hydrochlorothiazide (Microzide) 12.5 mg DAILY PO Last administered on 12/01/16 08:01; Start 12/01/16 at 09:00 Enalaprilat (Vasotec Inj) 1.25 mg Q8H PRN IV PUSH SBP> OR = 180, DBP> OR = 100 ; Start 11/30/16 at 12:00 A/P Assessment and Plan A/P - atrial fibrillation with rapid ventricular response- now HR better. off the Cardizem drip- increase po metoprolol upon discharge- continue cardizem. refused anticoagulation last time; still doesn't want to be anticoagulated. -COPD- oxygen dependent- neb treatment as needed. -chronic systolic CHF- continue diuretics, BB and CHARANJIT-I. -hypertension; resume metoprolol and cardizem -liver metastasis- on radiation therapy- f/u with oncology as outpatient. -DVT prophylaxis with Lovenox Discharge Planning likely dc home later today if HR remains controlled. f/u; pcp/cardiology. see med list. d/w the patient and RN. Jose Duggan MD Dec 01, 2016 11:39
[2016-12-01] MEDS ORDERED: METO-426 PO (11:40)
--- NOTE | 2016-12-01 11:41 | HHI.DCPOC ---
Discharge Care Plan Diagnosis: (1) Atrial fibrillation with RVR Additional Problems elevated heart rate. Goals to Promote Your Health * To prevent worsening of your condition and complications * To maintain your health at the optimal level Directions to Meet Your Goals Take your medications as prescribed Follow your dietary instruction Follow activity as directed Keep your appointments as scheduled Take your immunizations and boosters as scheduled If your symptoms worsen call your PCP, if no PCP go to Urgent Care Center or Emergency Room Smoking is Dangerous to Your Health. Avoid second hand smoke Call the 24-hour hour crisis hotline for domestic abuse at Jose Duggan MD Dec 01, 2016 11:41
--- NOTE | 2016-12-01 11:42 | HHI.DS ---
Discharge Summary Admission Date Nov 30, 2016 at 11:03 Discharge Date: Dec 01, 2016 Admitting Diagnosis AFib RVR, Dyspnea, CHF, COPD (1) Atrial fibrillation with RVR ICD Code: I48.91 Diagnosis: Principal Procedures none Brief History - From Admission patient is a 86 y/o male, known to me from previous admission, who presented to ER with sob. he was recently diagnosed with metastatic liver cancer and just started on radiation therapy. he says that he's had two sessions of radiation. since then he's been feeling weak. he says that he started to have some sob yesterday which gradually got worse. he denies any orthopnea, chest pain, cough , fever or chills. he denies any palpitations.he has a history of COPD and is oxygen dependent. CBC/BMP: 11/30/16 0825 11/30/16 0825 Significant Findings Laboratory Tests Test 11/30/16 08:25 Hemoglobin 12.1 GM/DL (13.0-17.0) Hematocrit 37.5 % (39.0-51.0) Mean Corpuscular Volume 73.0 FL (80.0-100.0) Mean Corpuscular Hemoglobin 23.5 PG (27.0-34.0) Red Cell Distribution Width 18.0 % (11.6-17.2) Mean Platelet Volume 6.8 FL (7.0-11.0) Neutrophils (%) (Auto) 87.6 % (16.0-70.0) Lymphocytes (%) (Auto) 5.4 % (9.0-44.0) Neutrophils # (Auto) 7.9 TH/MM3 (1.8-7.7) Lymphocytes # (Auto) 0.5 TH/MM3 (1.0-4.8) Blood Urea Nitrogen 26 MG/DL (7-18) Random Glucose 164 MG/DL (74-106) Alkaline Phosphatase 164 U/L (45-117) B-Type Natriuretic Peptide 317 PG/ML (0-100) Total Protein 5.6 GM/DL (6.4-8.2) Albumin 2.3 GM/DL (3.4-5.0) Imaging Last Impressions Chest X-Ray 11/30/16 0816 Signed Impressions: Service Date/Time: Wednesday, November 30, 2016 08:30 - CONCLUSION: No significant interval change. Persistent bilateral lower lung zone opacity likely represent atelectasis and left upper lung mass. Bryan Strong MD PE at Discharge GENERAL: This is a well-nourished, well-developed patient, in no apparent distress. CARDIOVASCULAR: Regular rate and regular rhythm without murmurs, gallops, or rubs. RESPIRATORY: Clear to auscultation. Breath sounds equal bilaterally. No wheezes , rales, or rhonchi. GASTROINTESTINAL: Abdomen soft, non-tender, nondistended. Normal, active bowel sounds MUSCULOSKELETAL: Extremities with bilateral pedal edema. NEURO: Alert & Oriented x4 to person, place, time, situation. Moves all ext x4 Hospital Course - atrial fibrillation with rapid ventricular response- now HR better. off the Cardizem drip- increase po metoprolol upon discharge- continue cardizem. refused anticoagulation last time; still doesn't want to be anticoagulated. -COPD- oxygen dependent- neb treatment as needed. -chronic systolic CHF- continue diuretics, BB and CHARANJIT-I. -hypertension; resume metoprolol and cardizem -liver metastasis- on radiation therapy- f/u with oncology as outpatient. -DVT prophylaxis with Lovenox Pt Condition on Discharge: Fair Discharge Disposition: Discharge Home Discharge Time: <= 30 minutes Discharge Instructions DIET: Follow Instructions for: Heart Healthy Diet Activities you can perform: Regular-No Restrictions Follow up Referrals: Cardiology PCP Follow-up New Medications: Metoprolol Tartrate (Metoprolol Tartrate) 75 Mg Tab 75 MG PO BID a-fib #60 Ref 0 TAB Continued Medications: Albuterol 8.5 GM Inh (Proair Hfa 8.5 GM Inh) 90 Mcg/Act Aer 1 PUFF INH Q4H 108 mcg/actuation PRN SHORTNESS OF BREATH #1 Ref 0 INHALER Alprazolam (Alprazolam) 0.25 Mg Tab 0.25 MG PO Q8H PRN ANXIETY #60 Ref 1 TAB Diltiazem ER 24 HR (Taztia Xt) 240 Mg Caper 240 MG PO DAILY #90 Ref 1 CAP Fluticasone Nasal [place] (Fluticasone Nasal [place]) 50 Mcg/Act Naspr 50 MCG EACH NARE BID 50 mcg/spray Allergy Management #1 Ref 0 BOTTLE Furosemide (Lasix) 20 Mg Tab 20 MG PO DAILY chf #30 Ref 3 TAB Ipratropium-Albuterol Neb (Duoneb) 0.5-2.5 Mg/3 Ml Neb 1 NEBULE INH BID Breathing Treatment #30 Ref 0 NEBULE Lisinopril-Hctz (Lisinopril-Hctz) 20-12.5 Mg Tab 1 TAB PO DAILY Blood Pressure Management #30 Ref 0 TAB Discontinued Medications: Metoprolol Tartrate (Metoprolol Tartrate) 50 Mg Tab 50 MG PO BID #60 Ref 6 TAB Jose Duggan MD Dec 01, 2016 11:42
[2016-12-01 12:00] VITALS: BP 145/105; PULSE 97; RESP 26; TEMP 96.8; O2SAT 94
[2016-12-01] MEDS ORDERED: DILTIAZEM HCL 60 MG TAB PO ONE (12:00)
[2016-12-01] MEDS: ENOXAPARIN SODIUM 40 MG/0.4 ML SYRINGE SQ SCH (12:13)
[2016-12-12] MEDS ORDERED: METO-426 PO (15:57)
[2016-12-12] MEDS ORDERED: ALPR0.25 PO (15:57)
[2016-12-12] MEDS ORDERED: ALPR0.5T3 PO (16:17)
== END 2016-12-01 17:47 | disposition home or self-care (01) | DRG 309 ==
LOC: PHED 08:50 → PHEDA 11:03 → PH3B 12:07
PROVIDERS: ADMIT Internal Medicine; ATTEND Internal Medicine
DX: I48.91 Unspecified atrial fibrillation (principal); I50.22 Chronic systolic (congestive) heart failure; I11.0 Hypertensive heart disease with heart failure; C78.7 Secondary malignant neoplasm of liver and intrahepatic bile duct; J44.1 Chronic obstructive pulmonary disease with (acute) exacerbation; Z99.81 Dependence on supplemental oxygen; I45.10 Unspecified right bundle-branch block; M79.89 Other specified soft tissue disorders; M19.90 Unspecified osteoarthritis, unspecified site; E78.00 Pure hypercholesterolemia, unspecified; F41.9 Anxiety disorder, unspecified; H91.90 Unspecified hearing loss, unspecified ear; Z85.038 Personal history of other malignant neoplasm of large intestine; Z92.21 Personal history of antineoplastic chemotherapy; Z87.891 Personal history of nicotine dependence
CPT/HCPCS: 71010; 77412; 80053; 82550; 83880; 84484; 85025; 85610; 85730; 93005; 94640; 94664; 96374; 96375; J1650; J1940; J2930; J7613

== ENCOUNTER 2016-12-19 09:33 | Inpatient (IN) | payer MEDICARE ==
[2016-12-19] VITALS (10 sets, daily range): BP systolic 132–161; BP diastolic 65–94; PULSE 94–124; RESP 18–20; TEMP 97–98.1; O2SAT 92–98
[~2016-12-19] VITALS: Ht 167.6 cm; Wt 80.6 kg
[~2016-12-19 09:33] MED LIST changes: +ALPR0.5T3 PO; -ASPI1TAB69 PO; -HYDR-3535 PO; -LEVA500T PO; +LISI20TA PO; -MEDR4PAK PO; +METO-426 PO; -METO50TA PO; -NEBULIZER1 MI1; -POTA10CA PO; -TIOT1AER2 INH; -TRAM50TA PO
[2016-12-19] MEDS ORDERED: methylPREDNISolone SOD SUCC 125 MG/2 ML VIAL IVP ONE (10:15)
--- NOTE | 2016-12-19 10:21 | PD ---
HPI Chief Complaint: Edema Time Seen by Provider: 10:05 Travel History International Travel<30 days: No Contact w/Intl Traveler<30days: No Traveled to known affect area: No History of Present Illness HPI 86yo M with PMH of metastatic liver cancer s/p radiation therapy (finished 10 treatments Friday and follows with oncologist Dr. Fortune) presents to the ED with c/o nausea and weakness mainly in bilateral legs after radiation treatment. States swelling has gotten better but feels weak to walk. Denies any urinary complaints including incontinence, focal numbness, trauma. Pt also states he feels more sob than normal although he is saturating at 98% on RA. Pt has COPD on 2.5L oxygen at home, Chronic systolic CHF, HTN and afib. Denies any fever, chest pain, vomiting, abdominal pain. PFSH Past Medical History Hx Anticoagulant Therapy: Yes (81mg asa) Arthritis: Yes Asthma: No Atrial Fibrillation: Yes Autoimmune Disease: No Anxiety: Yes Depression: No Heart Rhythm Problems: Yes (ATRIAL FIBRILATION) Cancer: Yes (liver & colon) Cardiovascular Problems: Yes (HTN,CHF) High Cholesterol: No (pt stated "i don't think i do") Chemotherapy: Yes (COLON CA) Chest Pain: No Congestive Heart Failure: Yes COPD: Yes Cerebrovascular Accident: No Coronary Artery Disease: Yes Diabetes: No Diminished Hearing: Yes Endocrine: No Gastrointestinal Disorders: No GERD: No Glaucoma: No Genitourinary: Yes (PROSTATE) Headaches: No Hepatitis: No Hiatal Hernia: No Hypertension: Yes Immune Disorder: No Implanted Vascular Access Dvce: No Kidney Stones: No Musculoskeletal: Yes (ARTHRITIS) Neurologic: No Psychiatric: No Reproductive: No Respiratory: Yes (COPD) Immunizations Current: Yes Migraines: No Pneumonia: Yes Radiation Therapy: Yes (FINISHED 12/13/16) Renal Failure: No Seizures: No Sleep Apnea: No Thyroid Disease: No Ulcer: No Influenza Vaccination: Yes Past Surgical History Abdominal Surgery: Yes (UMBILIC HERNIA 1997, COLON RESECTION 08/04/14) AICD: No Appendectomy: Yes (MAR 2014) Arteriovenous Shunt: No Cardiac Surgery: No Ear Surgery: No Endocrine Surgery: Yes (skin cx 2014) Eye Surgery: Yes (cataracts) Genitourinary Surgery: Yes (COLD THERAPY ON BLADDER, TURP 08/06) Insulin Pump: No Joint Replacement: No Neurologic Surgery: No Oral Surgery: No Pacemaker: No Thoracic Surgery: No Tonsillectomy: Yes Other Surgery: Yes (TURP) Social History Alcohol Use: No Tobacco Use: No (former) Substance Use: No Allergies-Medications (Allergen,Severity, Reaction): Coded Allergies: No Known Allergies (Verified , 12/19/16) Reported Meds & Prescriptions Reported Meds & Active Scripts Active Alprazolam 0.5 Mg Tab 0.5 Mg PO HS PRN Metoprolol Tartrate 75 Mg Tab 75 Mg PO BID Taztia Xt (Diltiazem ER 24 HR) 240 Mg Caper 240 Mg PO DAILY Lasix (Furosemide) 20 Mg Tab 20 Mg PO DAILY Oxygen tank (Oxygen) 1 Ea Tank 2 Liter [employer] CONTINUOUS Oxygen Concentrator Portable Gaseous 2 L/min via Nasal Cannula Continuous For 99 months Reported Alprazolam 0.25 Mg Tab 0.25 Mg PO BID PRN Lisinopril-Hctz 20-12.5 Mg Tab 1 Tab PO DAILY Fluticasone Nasal [place] 50 Mcg/Act Naspr 50 Mcg EACH NARE BID 50 mcg/spray Duoneb (Ipratropium-Albuterol Neb) 0.5-2.5 Mg/3 Ml Neb 1 Nebule INH BID Proair Hfa 8.5 GM Inh (Albuterol Sulfate) 90 Mcg/Act Aer 1 Puff INH Q4H PRN 108 mcg/actuation Review of Systems Except as stated in HPI: all other systems reviewed are Neg Physical Exam Narrative GENERAL: 86yo M not in distress. SKIN: Focused skin assessment warm/dry. HEAD: Atraumatic. Normocephalic. EYES: Pupils equal and round. No scleral icterus. No injection or drainage. ENT: No nasal bleeding or discharge. Mucous membranes pink and moist. NECK: Trachea midline. No JVD. CARDIOVASCULAR: Regular rate and rhythm. No murmur appreciated. RESPIRATORY: No accessory muscle use. Bibasilar crackles. Saturating at 98% on 2L NC. GASTROINTESTINAL: Abdomen soft, non-tender, nondistended. No rebound tenderness or guarding. BACK: No midline ttp. MUSCULOSKELETAL: No obvious deformities. +Bilateral pitting edema up to above bilateral knees. NEUROLOGICAL: Awake and alert. No obvious cranial nerve deficits. Muscle strength 4/5 in bilateral lower ext. Normal speech. Sensation equal and intact bilaterally. PSYCHIATRIC: Appropriate mood and affect; insight and judgment normal. Data Data Last Documented VS Vital Signs Date Time Temp Pulse Resp B/P Pulse Ox O2 Delivery O2 Flow Rate FiO2 12/19/16 12:10 122 20 144/84 98 Nasal Cannula 2 12/19/16 09:37 98.1 Orders Complete Blood Count With Diff (12/19/16 10:15) Basic Metabolic Panel (Bmp) (12/19/16 10:15) B-Type Natriuretic Peptide (12/19/16 10:15) Act Partial Throm Time (Ptt) (12/19/16 10:15) Prothrombin Time / Inr (Pt) (12/19/16 10:15) Ckmb (Isoenzyme) Profile (12/19/16 10:15) Troponin I (12/19/16 10:15) Urinalysis - C+S If Indicated (12/19/16 10:15) Iv Access Insert/Monitor (12/19/16 10:15) Electrocardiogram (12/19/16 10:15) Ecg Monitoring (12/19/16 10:15) Oximetry (12/19/16 10:15) Oxygen Administration (12/19/16 10:15) Chest, Single Ap (12/19/16 10:15) Sodium Chloride 0.9% Flush (Ns Flush) (12/19/16 10:15) Methylprednisolone So Succ Inj (Solumedr (12/19/16 10:15) Albuterol-Ipratropium Neb (Duoneb Neb) (12/19/16 10:15) CKMB (12/19/16 10:40) CKMB% (12/19/16 10:40) Furosemide Inj (Lasix Inj) (12/19/16 11:45) Mri Brain W&W/O Contrast (12/19/16 ) Mri L Spine W&W/O Contrast (12/19/16 ) Consult Medical Oncology (12/19/16 ) Admit Order (Ed Use Only) (12/19/16 12:46) Labs Laboratory Tests Test 12/19/16 12/19/16 10:25 10:40 Urine Collection Type CLEAN CATCH Urine Color STRAW Urine Turbidity CLEAR Urine pH 7.0 Urine Specific [place] 1.008 Urine Protein NEG mg/dL Urine Glucose (UA) NEG mg/dL Urine Ketones NEG mg/dL Urine Occult Blood NEG Urine Nitrite NEG Urine Bilirubin NEG Urine Leukocyte Esterase NEG Urine Squamous Epithelial 0-5 /hpf Cells Urine Amorphous Sediment FEW Microscopic Urinalysis Comment CULT NOT INDICATED Urine Collection Time 1025 White Blood Count 8.2 TH/MM3 Red Blood Count 5.42 MIL/MM3 Hemoglobin 12.4 GM/DL Hematocrit 39.0 % Mean Corpuscular Volume 71.9 FL Mean Corpuscular Hemoglobin 23.0 PG Mean Corpuscular Hemoglobin 31.9 % Concent Red Cell Distribution Width 17.9 % Platelet Count 247 TH/MM3 Mean Platelet Volume 6.6 FL Neutrophils (%) (Auto) 89.7 % Lymphocytes (%) (Auto) 3.9 % Monocytes (%) (Auto) 5.9 % Eosinophils (%) (Auto) 0.2 % Basophils (%) (Auto) 0.3 % Neutrophils # (Auto) 7.4 TH/MM3 Lymphocytes # (Auto) 0.3 TH/MM3 Monocytes # (Auto) 0.5 TH/MM3 Eosinophils # (Auto) 0.0 TH/MM3 Basophils # (Auto) 0.0 TH/MM3 CBC Comment AUTO DIFF Differential Comment AUTO DIFF CONFIRMED Platelet Estimate NORMAL Platelet Morphology Comment NORMAL Red Cell Morphology Comment NORMAL Prothrombin Time 11.1 SEC Prothromb Time International 1.0 RATIO Ratio Activated Partial 27.2 SEC Thromboplast Time Sodium Level 140 MEQ/L Potassium Level 4.1 MEQ/L Chloride Level 100 MEQ/L Carbon Dioxide Level 32.5 MEQ/L Anion Gap 8 MEQ/L Blood Urea Nitrogen 18 MG/DL Creatinine 0.74 MG/DL Estimat Glomerular Filtration 100 ML/MIN Rate Random Glucose 135 MG/DL Calcium Level 9.7 MG/DL Total Creatine Kinase 140 U/L Creatine Kinase MB 1.4 NG/ML Troponin I LESS THAN 0.02 NG/ML B-Type Natriuretic Peptide 269 PG/ML MDM Medical Decision Making Medical Screen Exam Complete: Yes Emergency Medical Condition: Yes Interpretation(s) EKG: Afib at 101bpm. RBBB. PVC. Differential Diagnosis Metastatic lesion in brain or lumbar spine vs. CHF exacerbation vs. electrolyte abnormality vs. fatigue secondary to radiation therapy Narrative Course 86yo M with metastatic colon CA to liver and lung presents to the ED with c/o generalized weakness but more in bilateral lower ext since he finished radiation therapy Friday. Pt states he usually can walk with walker and sometimes a few steps without walker. However, after the therapy, he is barely able to stand. Labs reviewed, no leukocytosis. Troponin negative. BNP 269. UA negative. CXR showed underinflated exam with atelectasis at lung bases. Stable mass at apex of left hemithorax. Pt given lasix 40mg IV and has been diuresing. States he feels a litter better. Able to move his right leg a little more now. Discussed with Dr. Fortune, pt's radiation oncologist and he agrees with admission and MRI brain, L spine to make sure there are no metastasis. States generalized weakness may be from radiation therapy as well. He will see the patient tomorrow. Medical oncology consult placed. Discussed with hospitalist Dr. Muñiz who also wanted to add US bilateral lower ext to r/o DVT. US ordered. Pt admitted to his service. Pt states he is claustrophobic. I offered sedation for MRI and pt states he will think about it. Diagnosis Primary Impression: Generalized weakness Additional Impression: Colon cancer metastasized to liver Admitting Information Admitting Physician Requests: Observation Gale Whalen DO Dec 19, 2016 10:21
[2016-12-19] MEDS: RESP: ALBUTEROL 2.5 MG/IPRATROPIUM 0.5 MG NEB (SCH) INH ×3 (10:28→10:40)
[2016-12-19 10:42] LABS: BLOOD, URINE NEG (NEG); GLUCOSE,URINE NEG (NEG); KETONE, URINE NEG (NEG); NITRITE,URINE NEG (NEG)
[2016-12-19 10:46] LABS: AUTOMATED NEUTROPHIL # 7.4 TH/MM3 (1.8-7.7); BASOPHIL % 0.3 % (0.0-2.0); EOSINOPHIL % 0.2 % (0.0-4.0); LYMPH % 3.9 % (9.0-44.0); LYMPHOCYTE # 0.3 TH/MM3 (1.0-4.8); MEAN CELL VOLUME 71.9 FL (80.0-100.0); MEAN CORPUSCULAR HGB CONC 31.9 % (32.0-36.0); MONO % 5.9 % (0.0-8.0); NEUT % 89.7 % (16.0-70.0); PLATELET COUNT 247 TH/MM3 (150-450); RED BLOOD COUNT 5.42 MIL/MM3 (4.50-5.90); RED CELL DISTRIBUTION WIDTH 17.9 % (11.6-17.2); WHITE BLOOD COUNT 8.2 TH/MM3 (4.0-11.0)
--- NOTE | 2016-12-19 10:51 | RADRPT ---
EXAM DATE/TIME: 12/19/2016 10:35 [facility] COMPARISON: CT PULMONARY ANGIOGRAM, November 03, 2016, 10:11. CHEST SINGLE AP, November 30, 2016, 8:30. INDICATIONS : Short of breath, nausea, weakness in lower extremities. Last round of radiation therapy was 4 days ag o. MEDICAL HISTORY : Hypercholesterolemia. Chronic obstructive pulmonary disease. Congestive heart failure. Arthritis. Hypertension. CAD. A-fib. Liver & colon cancer. Radiation therapy. SURGICAL HISTORY : Tonsillectomy. Appendectomy. Colon resection. Hernia repair. ENCOUNTER: Initial ACUITY: 1 day PAIN SCORE: 0/10 LOCATION: chest FINDINGS: Portable AP view of the chest demonstrates a normal-sized cardiac silhouette with calcification of th e aorta. The descending thoracic aorta is tortuous. There is a persistent mass at the apex left hemit horax appears to be mediastinal in origin based on prior CT. Lungs are very underinflated with atelec tasis at the bases. No pneumothorax, pleural effusion, or airspace consolidation is visualized. Bones demonstrate no acute finding. CONCLUSION: 1. Underinflated examination with atelectasis at the lung bases. Otherwise, no acute pulmonary abnorm ality is seen. 2. Stable mass at the apex of the left hemithorax. Claudio Donohue MD on December 19, 2016 at 10:45 Board Certified Radiologist. This report was verified electronically.
[2016-12-19 10:53] LABS: CHLORIDE 100 MEQ/L (98-107); POTASSIUM 4.1 MEQ/L (3.5-5.1); SODIUM (NA) 140 MEQ/L (136-145)
[2016-12-19 10:56] LABS: ANION GAP 8 MEQ/L (5-15); BICARBONATE 32.5 MEQ/L (21.0-32.0); BLOOD UREA NITROGEN 18 MG/DL (7-18)
[2016-12-19 10:57] LABS: HEMO FLAGS AUTO DIFF
[2016-12-19 10:58] LABS: APTT (PATIENT) 27.2 SEC (24.3-30.1); PROTHROMBIN TIME - PATIENT 11.1 SEC (9.8-11.6)
[2016-12-19 10:59] LABS: GLOMERULAR FILTRATION RATE 100 ML/MIN (>89)
[2016-12-19 11:00] LABS: METHOD OF COLLECTION CLEAN CATCH; URINE COLOR STRAW (YELLW/STRAW)
[2016-12-19 11:01] LABS: COMMENT (UR) CULT NOT INDICATED; CULTURE IF INDICATED CULT NOT INDICATED; SQUAMOUS EPITHELIAL CELL URINE 0-5 /hpf (0-5)
[2016-12-19 11:02] LABS: CREATINE KINASE 140 U/L (39-308)
[2016-12-19] MEDS: SODIUM CHLORIDE 0.9% FLUSH 10 ML FLUSH IVF PRN ×2 (11:05→11:57)
[2016-12-19 11:14] LABS: CKMB 1.4 NG/ML (0.5-3.6)
[2016-12-19 11:28] LABS: PLATELET ESTIMATE SMEAR NORMAL (NORMAL); PLATELET MORPHOLOGY NORMAL (NORMAL); SCAN/DIFF AUTO DIFF CONFIRMED
[2016-12-19] MEDS ORDERED: FUROSEMIDE 40 MG/4 ML VIAL IV PUSH ONE (11:45)
--- NOTE | 2016-12-19 16:02 | RADRPT ---
EXAM DATE/TIME: 12/19/2016 15:10 [facility] COMPARISON: CT PULMONARY ANGIOGRAM, November 03, 2016, 10:11. US LEG BILATERAL VENOUS DOPPLER, December 13, 2015, 15:06. INDICATIONS : Bilateral leg swelling. MEDICAL HISTORY : Congestive heart failure. Hypercholesterolemia. Carcinoma, colon. Liver cancer. HTN. CAD. Afib. COPD. Pneumonia. Dyspnea. Anticoagulant therapy, Aspirin 81mg. SURGICAL HISTORY : Tonsillectomy.Umbilical hernia repair. Appendectomy.Cataracts. Colon resection. TURP. Left achilles t endon. Chemotherapy. Radiation therapy. ENCOUNTER: Subsequent ACUITY: 1 day PAIN SCORE: 0/10 LOCATION: Bilateral leg. TECHNIQUE: Venous ultrasound of the left and right leg was performed from the inguinal ligament to the proximal calf. Real-time, color Doppler and spectral tracing, compression and augmentation techniques were us ed. FINDINGS: RIGHT LEG: There is normal compressibility of the deep venous system from the inguinal region to the proximal ca lf. No echogenic clot is seen in the lumen of the common femoral, femoral, popliteal, and posterior tibial veins. There is a normal response of the venous system to proximal and distal augmentation an d respiration. LEFT LEG: There is normal compressibility of the deep venous system from the inguinal region to the proximal ca lf. No echogenic clot is seen in the lumen of the common femoral, femoral, popliteal, and posterior tibial veins. There is a normal response of the venous system to proximal and distal augmentation an d respiration. CONCLUSION: No DVT is identified within either lower extremity. Claudio Donohue MD on December 19, 2016 at 15:59 Board Certified Radiologist. This report was verified electronically.
[2016-12-19] MEDS ORDERED: ALPRAZolam 0.5 MG TAB PO PRN (17:00)
[2016-12-19] MEDS ORDERED: SODIUM CHLORIDE 0.9% FLUSH 10 ML FLUSH IV FLUSH PRN (17:00)
--- NOTE | 2016-12-19 17:08 | HHI.HP ---
[facility] Meagan Martin MD Admission Diagnosis Generalized weakness Diagnoses: (1) Lower extremity weakness Diagnosis: Principal (2) Acute on chronic systolic congestive heart failure Diagnosis: Principal (3) Lower extremity edema Diagnosis: Principal (4) Atrial fibrillation (5) COPD (chronic obstructive pulmonary disease) Diagnosis: Secondary Chief Complaint: Shortness of breath, lower extremity edema, lower extremity weakness Travel History International Travel<30 Days: No Contact w/Intl Traveler <30 Da: No Traveled to Known Affected Are: No History of Present Illness Written by Sujit Yen, acting as scribe for Dr. Muñiz on 12/19/16 at 16:53. 86 year-old male with rather complex medical history hypertension, systolic congestive heart failure, cardiomyopathy, severe aortic stenosis, atrial fibrillation, history of colon cancer, metastatic liver cancer undergoing radiation therapy, chronic obstructive pulmonary disease, anxiety, depression who presented to the hospital because of lower extremity weakness, lower extremity edema, shortness of breath and dyspnea. Patient states that his symptoms have been progressing over the last week since his last episode of radiation therapy. Patient states that he has recently been diagnosed with liver cancer and he has been undergoing radiation treatment. Patient states that his last dose was on Friday, since then he has been, very ill with fatigue , weakness, shortness of breath, dyspnea on exertion. The patient states that he has been having progressive dyspnea on exertion to where he used to be a little walk 3540 feet with his walker, however he cannot walk at all at this time. He states that this morning when he tried to get up out of bed he could not even move his legs. Since being here the hospital he is actually able to move his legs in bed now. Is able to bend his knees and lift them off the bed. He indicates that he has had increased swelling since his last dose of chemotherapy 6 days ago. He does indicate that he drinks 2 cups of coffee a day , Coumadin glass of orange juice a day, one glass of tomato juice a day and up to 5 glasses of water daily. He does not monitor his weights on a daily basis. Patient has had previous admissions to the hospital for COPD and CHF evaluations. He denies any fever, chills, runny nose, sore throat, cough, congestion, abdominal pain, nausea, vomiting, diarrhea, constipation. He indicates that he has been to his primary medical doctor's office Dr. Martin recently and was treated for anxiety with Xanax. Patient was evaluated in emergency department and was recommended observation the hospital. Review of Systems Constitutional: DENIES: Diaphoretic episodes, Fatigue, Fever, Weight gain, Weight loss, Chills, Dizziness, Change in appetite, Night Sweats Eyes: DENIES: Blurred vision, Diplopia, Eye inflammation, Eye pain, Vision loss , Double Vision Ears, nose, mouth, throat: DENIES: Hearing loss, Nasal discharge, Throat pain, Ear Pain, Running Nose, Sinus Pain Respiratory: COMPLAINS OF: Shortness of breath, DENIES: Apneas, Cough, Snoring , Wheezing, Hemoptysis, Sputum production Cardiovascular: COMPLAINS OF: Dyspnea on Exertion, DENIES: Chest pain, Palpitations, Syncope, Lower Extremity Edema, Orthopnea Gastrointestinal: DENIES: Abdominal pain, Black stools, Bloody stools, Constipation, Diarrhea, Nausea, Vomiting, Difficulty Swallowing, Anorexia Neurologic: DENIES: Abnormal gait, Headache, Localized weakness, Paresthesias, Seizures, Speech Problems, Tremor, Poor Balance Past Family Social History Past Medical History Hypertension Hyperlipidemia Chronic systolic congestive heart failure Cardiomyopathy with ejection fraction 4550 percent Chronic Atrial fibrillation Chronic obstructive pulmonary disease History of colon cancer Metastatic liver cancer Benign prostatic hypertrophy Past Surgical History Appendectomy TURP Colon resection Umbilical hernia repair Vein stripping surgery 2016 Cataracts Reported Medications Reported Meds & Active Scripts Active Alprazolam 0.5 Mg Tab 0.5 Mg PO HS PRN Metoprolol Tartrate 75 Mg Tab 75 Mg PO BID Taztia Xt (Diltiazem ER 24 HR) 240 Mg Caper 240 Mg PO DAILY Lasix (Furosemide) 20 Mg Tab 20 Mg PO DAILY Oxygen tank (Oxygen) 1 Ea Tank 2 Liter PAUL.CANULA CONTINUOUS Oxygen Concentrator Portable Gaseous 2 L/min via Nasal Cannula Continuous For 99 months Reported Alprazolam 0.25 Mg Tab 0.25 Mg PO BID PRN Lisinopril-Hctz 20-12.5 Mg Tab 1 Tab PO DAILY Fluticasone Nasal [place] 50 Mcg/Act Naspr 50 Mcg EACH NARE BID 50 mcg/spray Duoneb (Ipratropium-Albuterol Neb) 0.5-2.5 Mg/3 Ml Neb 1 Nebule INH BID Proair Hfa 8.5 GM Inh (Albuterol Sulfate) 90 Mcg/Act Aer 1 Puff INH Q4H PRN 108 mcg/actuation Allergies: Coded Allergies: No Known Allergies (Verified , 12/19/16) Family History Reviewed is significant for colon cancer Social History Patient states that he quit smoking 3040 years ago. Denies any alcohol or illicit drugs Physical Exam Vital Signs Vital Signs Date Time Temp Pulse Resp B/P Pulse Ox O2 Delivery O2 Flow Rate FiO2 12/19/16 13:30 97.4 94 20 161/88 97 12/19/16 13:10 102 20 132/77 97 Nasal Cannula 2 12/19/16 12:10 122 20 144/84 98 Nasal Cannula 2 12/19/16 11:08 108 20 133/65 98 Nasal Cannula 2 12/19/16 10:30 98 Nasal Cannula 2.00 12/19/16 10:20 98 Nasal Cannula 2 12/19/16 10:20 92 Nasal Cannula 2 12/19/16 09:41 92 Room Air 12/19/16 09:37 98.1 116 18 160/91 92 Physical Exam GENERAL: Well-developed, well-nourished, in no acute distress. alert and orientated HEENT: Head is normocephalic without any lesions or masses noted. Facial features are symmetric. Eyes: Pupils equal round reactive to light. Extraocular muscles are intact. Conjunctivae were clear. Oropharyngeal: Pharynx without any erythema edema. Tongue is midline without deviation. Buccal mucosa is moist without any masses or lesions NECK: Supple without any masses. Trachea midline no deviation. No JVD, no bruits are appreciated CARDIAC: Irregular rhythm, irregular rate. S1/S2 are heard. No murmurs gallops or rubs. LUNGS: Clear to auscultation bilaterally. No wheeze, rhonchi or rales. No use of accessory muscles on inspiration or expiration. ABDOMEN: Soft, nontender. Nondistended. Bowel sounds heard in all 4 quadrants. No organomegaly or masses. Negative rebound, negative guarding EXTREMITIES: 2+ pitting edema noted bilateral lower extremities, pulses are equal bilaterally. No cyanosis or clubbing NEUROLOGY: Mood and affect appear appropriate. Cranial nerves II through XII grossly intact. Muscle strength 5/5 in upper and lower extremities bilaterally. Deep tendon reflexes are 2+ in upper and lower extremities bilaterally. Patient is moving his lower extremities without any problem. He is able to hold him off the bed. Strength is equal bilaterally Laboratory Laboratory Tests Test 12/19/16 12/19/16 10:25 10:40 Urine Collection Type CLEAN CATCH Urine Color STRAW Urine Turbidity CLEAR Urine pH 7.0 Urine Specific Hancock 1.008 Urine Protein NEG Urine Glucose (UA) NEG Urine Ketones NEG Urine Occult Blood NEG Urine Nitrite NEG Urine Bilirubin NEG Urine Leukocyte Esterase NEG Urine Squamous Epithelial 0-5 Cells Urine Amorphous Sediment FEW Microscopic Urinalysis Comment CULT NOT INDICATED Urine Collection Time 1025 White Blood Count 8.2 Red Blood Count 5.42 Hemoglobin 12.4 Hematocrit 39.0 Mean Corpuscular Volume 71.9 Mean Corpuscular Hemoglobin 23.0 Mean Corpuscular Hemoglobin 31.9 Concent Red Cell Distribution Width 17.9 Platelet Count 247 Mean Platelet Volume 6.6 Neutrophils (%) (Auto) 89.7 Lymphocytes (%) (Auto) 3.9 Monocytes (%) (Auto) 5.9 Eosinophils (%) (Auto) 0.2 Basophils (%) (Auto) 0.3 Neutrophils # (Auto) 7.4 Lymphocytes # (Auto) 0.3 Monocytes # (Auto) 0.5 Eosinophils # (Auto) 0.0 Basophils # (Auto) 0.0 CBC Comment AUTO DIFF Differential Comment AUTO DIFF CONFIRMED Platelet Estimate NORMAL Platelet Morphology Comment NORMAL Red Cell Morphology Comment NORMAL Prothrombin Time 11.1 Prothromb Time International 1.0 Ratio Activated Partial 27.2 Thromboplast Time Sodium Level 140 Potassium Level 4.1 Chloride Level 100 Carbon Dioxide Level 32.5 Anion Gap 8 Blood Urea Nitrogen 18 Creatinine 0.74 Estimat Glomerular Filtration 100 Rate Random Glucose 135 Calcium Level 9.7 Total Creatine Kinase 140 Creatine Kinase MB 1.4 Troponin I LESS THAN 0.02 B-Type Natriuretic Peptide 269 Result Diagram: 12/19/16 1040 12/19/16 1040 Imaging Last Impressions Chest X-Ray 12/19/16 1015 Signed Impressions: Service Date/Time: November 10:35 - CONCLUSION: 1. Underinflated examination with atelectasis at the lung bases. Otherwise, no acute pulmonary abnormality is seen. 2. Stable mass at the apex of the left hemithorax. Claudio Donohue MD Lower Extremity Ultrasound 12/19/16 0000 Signed Impressions: Service Date/Time: November 15:10 - CONCLUSION: No DVT is identified within either lower extremity. Claudio Donohue MD Assessment and Plan Assessment and Plan Bilateral lower extremity weakness, improved Unknown etiology could be secondary to congestive heart failure exacerbation, deconditioning, cancer, radiation therapy, Xanax ER physician ordering MRI of the brain and lumbar spine, await findings Acute on chronic systolic congestive heart failure patient presents with dyspnea on exertion, lower extremity edema, mildly elevated BNP Chest x-ray does not indicate any acute abnormality Lower extremity ultrasound does not indicate any DVT Lasix 40 mg IV every 12 hours with KCl 20 mEq every 12 hours Strict input and output Fluid restriction 1500 mL/day Trend cardiac enzymes and EKGs Recent echocardiogram 09/08/16 shows ejection fraction 4550 percent. Moderate to severe aortic valve stenosis, mild mitral valve regurgitation systolic function with mildly reduced Patient's beta virginie, CHARANJIT inhibitor have been continued Chronic respiratory failure secondary to chronic obstructive pulmonary disease Continue O2 supplementation maintain O2 sats greater 92% Duo nebs every 6 hours as needed Incentive spirometry Metastatic cancer with liver involvement Dr. Fortune consulted for recommendations Hypertension, chronic atrial fibrillation, hyperlipidemia Home medications continued DVT prevention Sequential compression devices This note was transcribed by griffin Yen. I, Dr. Jose Joshi personally performed the history, physical exam, and medical decision making; and confirmed the accuracy of the information in the transcribed note. Authenticated by Dr. Jose Joshi on 12/19/16 at 17:42. Problem Qualifiers (1) Atrial fibrillation: Qualified Code: I48.91 - Atrial fibrillation, unspecified type (2) COPD (chronic obstructive pulmonary disease): Qualified Code: J44.9 - Chronic obstructive pulmonary disease, unspecified COPD type Sujit Yen Dec 19, 2016 17:08 Jose Peter MD Dec 19, 2016 17:46
[2016-12-19] MEDS: FUROSEMIDE 40 MG/4 ML VIAL IVP SCH (18:24)
[2016-12-19] MEDS: RESP: ALBUTEROL 2.5 MG/IPRATROPIUM 0.5 MG NEB (PRN) NEB (20:32)
[2016-12-19] MEDS: SODIUM CHLORIDE 0.9% FLUSH 10 ML FLUSH IV FLUSH SCH (21:42)
[2016-12-19] MEDS: POTASSIUM CHLORIDE 20 MEQ CONTROLLED RELEASE TAB PO SCH (21:42)
[2016-12-19] MEDS: METOPROLOL TARTRATE 25 MG TAB PO SCH (21:43)
[2016-12-20] VITALS (11 sets, daily range): BP systolic 116–162; BP diastolic 88–105; PULSE 80–111; RESP 12–20; TEMP 96.9–98.6; O2SAT 94–98
[2016-12-20] MEDS: RESP: ALBUTEROL 2.5 MG/IPRATROPIUM 0.5 MG NEB (PRN) NEB (07:58)
[2016-12-20] MEDS: DILTIAZEM-CD 240 MG CAP ER PO SCH (09:11)
[2016-12-20] MEDS: HYDROCHLOROTHIAZIDE 12.5 MG CAP PO SCH (09:12)
[2016-12-20] MEDS: LISINOPRIL 20 MG TAB PO SCH (09:12)
[2016-12-20] MEDS: POTASSIUM CHLORIDE 20 MEQ CONTROLLED RELEASE TAB PO SCH ×2 (09:12→21:51)
[2016-12-20] MEDS: SODIUM CHLORIDE 0.9% FLUSH 10 ML FLUSH IV FLUSH SCH ×2 (09:12→21:52)
[2016-12-20] MEDS: FUROSEMIDE 40 MG/4 ML VIAL IVP SCH ×2 (09:13→17:14)
[2016-12-20] MEDS: METOPROLOL TARTRATE 25 MG TAB PO SCH ×2 (09:13→21:51)
--- NOTE | 2016-12-20 11:27 | HHI.PR ---
Subjective Remarks Patient states sob is improving denies cp/sob denies fevers/chills or ocugh denies cp able to ambulate short distances with PT patient states feels anxious Objective Vitals Vital Signs Date Time Temp Pulse Resp B/P Pulse Ox O2 Delivery O2 Flow Rate FiO2 12/20/16 08:00 98.2 111 20 153/99 94 12/20/16 08:00 98 Nasal Cannula 2.00 12/20/16 04:00 97.6 80 18 162/105 96 12/20/16 00:00 96.9 95 20 153/88 96 12/19/16 20:32 94 Nasal Cannula 2.00 12/19/16 20:00 97.0 124 18 147/94 95 12/19/16 20:00 122 12/19/16 16:00 97.8 104 20 159/88 95 12/19/16 13:30 97.4 94 20 161/88 97 12/19/16 13:10 102 20 132/77 97 Nasal Cannula 2 12/19/16 12:10 122 20 144/84 98 Nasal Cannula 2 I/O 12/19/16 12/19/16 12/19/16 12/20/16 12/20/16 12/20/16 07:00 15:00 23:00 07:00 15:00 23:00 Intake Total 880 ml Output Total 1500 ml 1100 ml 1700 ml Balance -1500 ml -1100 ml -820 ml Intake Oral 880 ml Output Urine Total 1500 ml 1100 ml 1700 ml # Bowel Movements 0 Result Diagram: 12/19/16 1040 12/19/16 1040 Imaging Last Impressions Chest X-Ray 12/19/16 1015 Signed Impressions: Service Date/Time: November 10:35 - CONCLUSION: 1. Underinflated examination with atelectasis at the lung bases. Otherwise, no acute pulmonary abnormality is seen. 2. Stable mass at the apex of the left hemithorax. Claudio Donohue MD Lower Extremity Ultrasound 12/19/16 0000 Signed Impressions: Service Date/Time: November 15:10 - CONCLUSION: No DVT is identified within either lower extremity. Claudio Donohue MD Objective Remarks GENERAL: Well-developed, well-nourished, in no acute distress. alert and orientated HEENT: Head is normocephalic without any lesions or masses noted. Facial features are symmetric. Eyes: Pupils equal round reactive to light. Extraocular muscles are intact. Conjunctivae were clear. Oropharyngeal: Pharynx without any erythema edema. Tongue is midline without deviation. Buccal mucosa is moist without any masses or lesions NECK: Supple without any masses. Trachea midline no deviation. No JVD, no bruits are appreciated CARDIAC: Irregular rhythm, irregular rate. S1/S2 are heard. No murmurs gallops or rubs. LUNGS: Clear to auscultation bilaterally. No wheeze, rhonchi or rales. No use of accessory muscles on inspiration or expiration. ABDOMEN: Soft, nontender. Nondistended. Bowel sounds heard in all 4 quadrants. No organomegaly or masses. Negative rebound, negative guarding EXTREMITIES: 2+ pitting edema noted bilateral lower extremities, pulses are equal bilaterally. No cyanosis or clubbing NEUROLOGY: Mood and affect appear appropriate. Cranial nerves II through XII grossly intact. Muscle strength 3/5 in upper and lower extremities bilaterally. Deep tendon reflexes are 1+ in upper and lower extremities bilaterally. Patient is moving his lower extremities without any problem. He is able to hold him off the bed. Strength is equal bilaterally Medications and IVs Current Medications Medications (Trade) Dose Ordered Sig/[place] Route Start Time Stop Time Status Last Admin (NS Flush) 2 ml UNSCH PRN IV FLUSH 12/19/16 17:00 (NS Flush) 2 ml BID IV FLUSH 12/19/16 21:00 12/20/16 09:12 (Lasix Inj) 40 mg BID@,18 IVP 12/19/16 18:00 12/20/16 09:13 (KCl) 20 meq BID PO 12/19/16 21:00 12/20/16 09:12 (Xanax) 0.25 mg BID PRN PO 12/19/16 17:00 (Xanax) 0.5 mg HS PRN PO 12/19/16 17:00 12/20/16 03:56 (Cardizem Cd) 240 mg DAILY PO 12/20/16 09:00 12/20/16 09:11 (Lopressor) 75 mg BID PO 12/19/16 21:00 12/20/16 09:13 (Prinivil) 20 mg DAILY PO 12/20/16 09:00 12/20/16 09:12 (Microzide) 12.5 mg DAILY PO 12/20/16 09:00 12/20/16 09:12 Urinary Catheter: Yes Assessment to: Remove A/P Problem List: (1) Lower extremity weakness ICD Code: R29.898 Status: Acute Plan: Admit to inpatient. Etiology still unclear. Differential diagnosis includes physical deconditioning , heart failure exacerbation, metastatic cancer. MRI of the brain and lumbar spine ordered but patient is refusing to have it done. Appreciate physical therapy efforts and recommendations. (2) Acute on chronic systolic congestive heart failure ICD Code: I50.23 Status: Acute Plan: Recent echocardiogram on showed an ejection fraction of 45-50%. To severe aortic valve stenosis, mitral valve regurgitation with systolic function mildly reduced. Continue CHARANJIT inhibitor, beta virginie Continue frusemide 40 mg IV twice a day (3) Lower extremity edema ICD Code: R60.0 Status: Acute Plan: Due to CHF exacerbation as mentioned above. Continue diuretics. Seems to be improving. No DVT on lower extremity Doppler ultrasound. (4) Atrial fibrillation ICD Code: I48.91 Status: Chronic Plan: EKG obtained on 12/19 at 2247 hrs. shows atrial fibrillation with a ventricular rate of 10 5 bpm, no ST-T changes. NOt on anticoagulation because a s per records of last admission on 12/01 patient has refused to be on anticoagulation. (5) COPD (chronic obstructive pulmonary disease) ICD Code: J44.9 Status: Chronic Plan: Seems to be stable. Continue DuoNeb's nebulizer treatments as needed (6) Anxiety ICD Code: F41.9 Status: Chronic Plan: Continue Xanax. Patient seems to be mildly anxious. (7) Metastatic cancer to liver ICD Code: C78.7 Status: Acute Plan: Patient undergoing radiation therapy. Patient is requesting that the consultation. He is thinking into transitioning into comfort measures. Assessment and Plan DVT prophylaxis: SCDs, I will add heparin subcutaneous as the patient is not very mobile. Problem Qualifiers (1) Atrial fibrillation: Qualified Code: I48.91 - Atrial fibrillation, unspecified type (2) COPD (chronic obstructive pulmonary disease): Qualified Code: J44.9 - Chronic obstructive pulmonary disease, unspecified COPD type Jose Peter MD Dec 20, 2016 11:26
[2016-12-20] MEDS: HEPARIN SODIUM - SQ 10,000 UNITS/ML VIAL SQ SCH ×2 (16:09→21:51)
--- NOTE | 2016-12-20 16:18 | PD.CONS ---
Consult Service Palliative Care Consult Requested By Dr. Muñiz . Primary Care Physician Meagan Martin MD . Reason for Consultation a. To assist with evaluation and management of symptoms including: Dyspnea , fatigue, fall risk b. To assist medical decision maker(s) with: better understanding of current medical conditions; weighing benefits/burdens of medical treatment options; making medical treatment decisions. . HPI History of Present Illness This 86-year-old male, with a past history of end-stage COPD, CAD/CHF, diabetes , and colon cancer in 2013, presented to the hospital again on 12/19/16 because of weakness and worsening leg edema. The patient was admitted here in July because of dyspnea and pneumonia. He was readmitted on 09/04/16 with dyspnea, and a CT scan revealed a large liver mass in the right lobe. A biopsy was undertaken at that time, and the patient was discharged home. Subsequently, the biopsy reported adenocarcinoma consistent with colon origin, and lab work returned that included a CEA of 444.1 , and AFP of 0.7. The patient was next admitted here on 11/30/16 because of some worsening weakness and dyspnea, and he was in rapid atrial fib at that time. He had been started on a 10 session course of radiation a few days prior to that , and this radiation series was subsequently completed on 12/16/16. During the past 3 months, the patient has had a fairly steady decline, becoming weaker and more dyspneic. He has been on supplemental O2 24/7 for the last few weeks, and he has not been able to get up and ambulate the past couple weeks. He has slid or fallen to the floor more than a couple times, and neighbors have been called to help get him back in bed. At the time of presentation to the hospital yesterday, findings included: * Afebrile, weak, mildly dyspneic * White count 8.2, hemoglobin 12.4 * Sodium 140, creatinine 0.74. * An albumin level from last month was 2.4 * Chest x-ray with basilar atelectasis * Lower extremity ultrasound negative for DVT The patient was admitted, diuretics were provided, and he has primarily been in bed. The swelling on his legs has improved, but the patient has remained quite weak. It takes to staff members to get him from bedside chair back into bed. He remains on his supplemental O2. The patient and his report that they have follow-up appointments with oncology on Friday and with Dr. Fortune (radiation oncology) on Friday next week. The patient has refused having various tests here, including MRI that was suggested, and he asked to speak with us. Palliative Care was consulted to assist with symptom management, and to enter into discussions with the patient and his regarding the past history, current illnesses, prognosis, and the benefits and burdens of the various treatment options. . Function/Cognitive Trajectory The patient has declined steadily over the past few weeks, and now is unable to ambulate on his own. He has stayed mentally sharp. . Review of Systems Constitutional: COMPLAINS OF: Fatigue, DENIES: Weight gain, Weight loss Endocrine: DENIES: Polyuria Eyes: DENIES: Eye inflammation Ears, nose, mouth, throat: DENIES: Hoarseness, Epistaxis Respiratory: COMPLAINS OF: Cough, Shortness of breath (worse with minimal exertion) Cardiovascular: COMPLAINS OF: Dyspnea on Exertion, DENIES: Chest pain, Syncope Gastrointestinal: DENIES: Abdominal pain, Black stools, Bloody stools, Constipation, Diarrhea, Vomiting, Vomiting blood Genitourinary: DENIES: Hematuria Musculoskeletal: COMPLAINS OF: Joint pain (degenerative arthritis), Back pain ( worsen the past few months) Integumentary: DENIES: Rash Hematologic/Lymphatics: DENIES: Bruising Immunologic/Allergic: DENIES: Urticaria Neurologic: DENIES: Headache, Localized weakness, Paresthesias, Seizures, Speech Problems Psychiatric: COMPLAINS OF: Anxiety (with the dyspnea), DENIES: Hallucinations , Agitation Past Family Social History Coded Allergies: No Known Allergies (Verified , 12/19/16) Past Medical History * Metastatic colon cancer * End-stage COPD * CAD/history of CHF/atrial fibrillation * Diabetes * Malnutrition * Aortic stenosis and mitral regurgitation on echocardiogram * Multinodular goiter * Left lung apex schwannoma 2008, 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 Past Surgical History Appendectomy 2014 TURP 2007 Colon resection 2013 and 2014 for cancer Umbilical hernia repair 1998 Vein stripping surgery 2016 Cataracts Liver biopsy 09/06/16 Lung biopsy 2009 Skin cancers 2013 . Reported Medications Alprazolam 0.5 Mg Tab 0.5 Mg PO HS PRN Metoprolol Tartrate 75 Mg Tab 75 Mg PO BID Taztia Xt (Diltiazem ER 24 HR) 240 Mg Caper 240 Mg PO DAILY Lasix (Furosemide) 20 Mg Tab 20 Mg PO DAILY Oxygen tank (Oxygen) 1 Ea Tank 2 Liter PAUL.CANULA CONTINUOUS Oxygen Concentrator Portable Gaseous 2 L/min via Nasal Cannula Continuous For 99 months Reported Alprazolam 0.25 Mg Tab 0.25 Mg PO BID PRN Lisinopril-Hctz 20-12.5 Mg Tab 1 Tab PO DAILY Fluticasone Nasal [place] 50 Mcg/Act Naspr 50 Mcg EACH NARE BID 50 mcg/spray Duoneb (Ipratropium-Albuterol Neb) 0.5-2.5 Mg/3 Ml Neb 1 Nebule INH BID Proair Hfa 8.5 GM Inh (Albuterol Sulfate) 90 Mcg/Act Aer 1 Puff INH Q4H PRN . Current Medications Medications (Trade) Dose Ordered Sig/Mulugeta Route Start Time Stop Time Status Last Admin (NS Flush) 2 ml UNSCH PRN IV FLUSH 12/19/16 17:00 (NS Flush) 2 ml BID IV FLUSH 12/19/16 21:00 12/20/16 09:12 (Lasix Inj) 40 mg BID@09,18 IVP 12/19/16 18:00 12/20/16 09:13 (KCl) 20 meq BID PO 12/19/16 21:00 12/20/16 09:12 (Xanax) 0.25 mg BID PRN PO 12/19/16 17:00 (Xanax) 0.5 mg HS PRN PO 12/19/16 17:00 12/20/16 03:56 (Cardizem Cd) 240 mg DAILY PO 12/20/16 09:00 12/20/16 09:11 (Lopressor) 75 mg BID PO 12/19/16 21:00 12/20/16 09:13 (Prinivil) 20 mg DAILY PO 12/20/16 09:00 12/20/16 09:12 (Microzide) 12.5 mg DAILY PO 12/20/16 09:00 12/20/16 09:12 (Heparin Inj) 5,000 units Q8HR SQ 12/20/16 14:00 Family History The patient's father at age 82 with heart disease. The patient's mother and sister both of colon cancer. Positive family history for hypertension. . Substance Use Tobacco: Smoked for many years but quit in recent years. Alcohol: Occasional Prescription med abuse: None Illicits: None . Psychosocial History The patient was born and raised in [place], and moved to [place] about 7 years ago. He lives with his . He has been twice, currently for 12 years. He has 3 sons from his first marriage. 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 . Spiritual/Cultural Factors Patient has a Religion background, but he is on affiliated with any particular director of institutional research or anglican in this area. He does not desire director of institutional research or public health informatician visits at this time. . Living Will: Completed, but not made available Health Care Surrogate: Completed, but not made available Durable Power of Associate Media Director: Never completed Health Care Surrogate(s): [place] . Documented care wishes: He has a living will but I have not been able to review it yet. . Today's verbally stated goals: The patient definitely does not want to be resuscitated. The patient and his would like to speak with hospice regarding services at home. . Family/friends goals: supports patient's wishes. . Ethical and Legal Issues There are no ethical issues that would impact his care or decision-making at this time. The patient has capacity for decision-making; he has designated his [place] as his healthcare surrogate. . Physical Exam Vital Signs Date Time Temp Pulse Resp B/P Pulse Ox O2 Delivery O2 Flow Rate FiO2 12/20/16 12:00 98.0 91 20 141/88 97 12/20/16 08:55 109 12/20/16 08:00 98.2 111 20 153/99 94 12/20/16 08:00 98 Nasal Cannula 2.00 12/20/16 04:00 97.6 80 18 162/105 96 12/20/16 00:00 96.9 95 20 153/88 96 12/19/16 20:32 94 Nasal Cannula 2.00 12/19/16 20:00 97.0 124 18 147/94 95 12/19/16 20:00 122 12/19/16 16:00 97.8 104 20 159/88 95 12/19/16 12/20/16 19:00 07:00 Intake Total 880 ml Output Total 2600 ml 1700 ml Balance -2600 ml -820 ml Intake Oral 880 ml Output Urine Total 2600 ml 1700 ml # Bowel Movements 0 Exam CONSTITUTIONAL/GENERAL: This is an adequately nourished patient, in no apparent distress. He appears quite weak TUBES/LINES/DRAINS: Hobson catheter, peripheral IV, supplemental oxygen SKIN: No jaundice, rashes, or lesions. Ecchymoses on upper extremities. No wounds seen anteriorly. Skin temperature appropriate. Not diaphoretic. HEAD: Atraumatic. Normocephalic. EYES: Pupils equal and round and reactive. Extraocular motions intact. No scleral icterus. No injection or drainage. Fundi not examined. ENT: Hearing grossly normal. Nose without bleeding or purulent drainage. Throat without visible erythema, exudates, masses, or lesions. NECK: Trachea midline. Supple, nontender. No palpable thyroid enlargement or nodularity. CARDIOVASCULAR: Irregularly irregular without murmurs, gallops, or rubs. No JVD. Peripheral pulses diminished. RESPIRATORY/CHEST: Symmetric, unlabored respirations. Clear to auscultation, but diminished diffusely. GASTROINTESTINAL: Abdomen soft, non-tender, nondistended. No hepato-splenomegaly , or palpable masses. No guarding. Bowel sounds present. GENITOURINARY: Without palpable bladder distension. Hobson catheter in place. MUSCULOSKELETAL: Extremities without clubbing, cyanosis, but there is 1+ edema bilateral. No joint tenderness or effusion noted. No calf tenderness. No mottling or clubbing. LYMPHATICS: No palpable cervical or supraclavicular adenopathy. NEUROLOGICAL: Awake and alert. Sensory grossly within normal limits. Strength globally diminished. Follows commands. Cognitively sharp. Moves all extremities. PSYCHIATRIC: No obvious anxiety/depression. no apparent hallucinations or other psychotic thought process. . Diagnostic Tests Laboratory Laboratory Tests Test 12/19/16 12/19/16 12/19/16 12/19/16 10:25 10:40 18:45 22:30 Urine Collection Type CLEAN CATCH Urine Color STRAW (YELLW/STRAW) Urine Turbidity CLEAR (CLEAR) Urine pH 7.0 (5.0-8.5) Urine Specific [place] 1.008 (1.002-1.035) Urine Protein NEG mg/dL (NEG-TRACE) Urine Glucose (UA) NEG mg/dL (NEG) Urine Ketones NEG mg/dL (NEG) Urine Occult Blood NEG (NEG) Urine Nitrite NEG (NEG) Urine Bilirubin NEG (NEG) Urine Leukocyte Esterase NEG (NEG) Urine Squamous Epithelial 0-5 /hpf (0-5) Cells Urine Amorphous Sediment FEW Microscopic Urinalysis Comment CULT NOT INDICATED Urine Collection Time 1025 White Blood Count 8.2 TH/MM3 (4.0-11.0) Red Blood Count 5.42 MIL/MM3 (4.50-5.90) Hemoglobin 12.4 GM/DL (13.0-17.0) Hematocrit 39.0 % (39.0-51.0) Mean Corpuscular Volume 71.9 FL (80.0-100.0) Mean Corpuscular Hemoglobin 23.0 PG (27.0-34.0) Mean Corpuscular Hemoglobin 31.9 % Concent (32.0-36.0) Red Cell Distribution Width 17.9 % (11.6-17.2) Platelet Count 247 TH/MM3 (150-450) Mean Platelet Volume 6.6 FL (7.0-11.0) Neutrophils (%) (Auto) 89.7 % (16.0-70.0) Lymphocytes (%) (Auto) 3.9 % (9.0-44.0) Monocytes (%) (Auto) 5.9 % (0.0-8.0) Eosinophils (%) (Auto) 0.2 % (0.0-4.0) Basophils (%) (Auto) 0.3 % (0.0-2.0) Neutrophils # (Auto) 7.4 TH/MM3 (1.8-7.7) Lymphocytes # (Auto) 0.3 TH/MM3 (1.0-4.8) Monocytes # (Auto) 0.5 TH/MM3 (0-0.9) Eosinophils # (Auto) 0.0 TH/MM3 (0-0.4) Basophils # (Auto) 0.0 TH/MM3 (0-0.2) CBC Comment AUTO DIFF Differential Comment AUTO DIFF CONFIRMED Platelet Estimate NORMAL (NORMAL) Platelet Morphology Comment NORMAL (NORMAL) Red Cell Morphology Comment NORMAL (NORMAL) Prothrombin Time 11.1 SEC (9.8-11.6) Prothromb Time International 1.0 RATIO Ratio Activated Partial 27.2 SEC Thromboplast Time (24.3-30.1) Sodium Level 140 MEQ/L (136-145) Potassium Level 4.1 MEQ/L (3.5-5.1) Chloride Level 100 MEQ/L (98-107) Carbon Dioxide Level 32.5 MEQ/L (21.0-32.0) Anion Gap 8 MEQ/L (5-15) Blood Urea Nitrogen 18 MG/DL (7-18) Creatinine 0.74 MG/DL (0.60-1.30) Estimat Glomerular Filtration 100 ML/MIN Rate (>89) Random Glucose 135 MG/DL (74-106) Calcium Level 9.7 MG/DL (8.5-10.1) Total Creatine Kinase 140 U/L (39-308) Creatine Kinase MB 1.4 NG/ML (0.5-3.6) Troponin I LESS THAN 0.02 LESS THAN 0.02 LESS THAN 0.02 NG/ML NG/ML NG/ML (0.02-0.05) (0.02-0.05) (0.02-0.05) B-Type Natriuretic Peptide 269 PG/ML (0-100) Result Diagram: 12/19/16 1040 12/19/16 1040 Imaging Last Impressions Chest X-Ray 12/19/16 1015 Signed Impressions: Service Date/Time: November 10:35 - CONCLUSION: 1. Underinflated examination with atelectasis at the lung bases. Otherwise, no acute pulmonary abnormality is seen. 2. Stable mass at the apex of the left hemithorax. Claudio Donohue MD Lower Extremity Ultrasound 12/19/16 0000 Signed Impressions: Service Date/Time: November 15:10 - CONCLUSION: No DVT is identified within either lower extremity. Claudio Donohue MD Patient/Family Conference Present at Family Conference: [place] . Family Conference Time (mins): 59 Family Conference Location: Bedside Issues Discussed: * Palliative care role, purpose, approach * Hospice care role, purpose, approach * Additional medical, psychosocial, and spiritual history * Patients general health, functional status, and cognitive changes in the months leading up to the current hospitalization * Patient/family understanding of the current medical problems * Patient/family understanding of prognosis * Patients goals of care as best understood from advance directives and/or conversations and/or values * Current medical treatment options and benefits/burdens of those options * Likely scenarios comparing ongoing aggressive care with a transition to comfort measures only * Questions answered to the best of my ability * Palliative care contact information provided The patient and his are certain that he would not want to be resuscitated or kept alive artificially. They both want to speak with hospice at this time to engage services for help at home. The patient does want to eventually at home. He has medical oncology and radiation oncology appointments next week , and he likely will follow up with those. . Assessment and Plan Disease Oriented Problem List: (1) metastatic colon cancer (2) end-stage COPD (3) malnutrition, recent albumin 2.4 (4) CAD/history of CHF/atrial fibrillation (5) left lung apex schwannoma 2008, stable on subsequent scans (6) degenerative arthritis (7) multinodular goiter (8) hyperlipidemia (9) aortic stenosis and mitral regurgitation on echocardiogram 2016 (10) hypertension (11) anxiety associated with dyspnea (12) diabetes Symptom Scale: (1) anxiety 0-10 Scale: Unable to quantify (2) high fall risk 0-10 Scale: 6 (repeated falls) (3) fatigue, weakness 0-10 Scale: 6 (unable to ambulate) (4) Shortness of breath 0-10 Scale: 2 Pertinent Non-Medical Issues Psychosocial: Spiritual: Patient has a Religion background, but he is on affiliated with any particular director of institutional research or anglican in this area. He does not desire director of institutional research or public health informatician visits at this time. Legal: The patient has capacity for decision-making; he has designated his [place] as his healthcare surrogate. Ethical issues impacting care: Code Status: No Code Plan * DO NOT RESUSCITATE -- per request of patient and 12/20/16 * DECISION-Making: The patient has capacity for decision-making; he has designated his [place] as his healthcare surrogate. * GOALS: The patient and his are certain that he would not want to be resuscitated or kept alive artificially. They both want to speak with hospice at this time to engage services for help at home. The patient does want to eventually at home. He has medical oncology and radiation oncology appointments next week, and he likely will follow up with those. * Hospice order entered. * SYMPTOMS: The patient's dyspnea is reasonably well controlled while he is at rest. He has profound fatigue and weakness that is not likely to get better; he may benefit subjectively from being on some Decadron. His pain is not problematic at this time. * Palliative Care will continue to follow the patient during this hospitalization. . Time Spent Total Floor Time (mins): 79 Face to Face Time (mins): 59 >50% Counseling/Coord of Care: Yes Thank you for the opportunity to participate in the care of Mr. Ibrahim. Attestation To help prompt me to consider important information that might be impacting today's encounter and assessment, information from prior notes written by myself or my colleagues may have been "brought forward" into today's note. My signature on this note, however, is an attestation that I personally performed the exam, history, and/or decision-making noted today, and, unless otherwise indicated, the interactions with patient, family, and staff as well as the review of records all occurred today. I also attest that the listed assessment and stated plan reflect my best clinical judgment today based on the combination of historical information, prior notes, and today's exam/ interactions. When time spent is documented, it refers only to time spent today by the signer, or if indicated, combined time spent today by collaborating physician/nurse practitioner. Micki Spangler MD Dec 20, 2016 16:17
--- NOTE | 2016-12-20 16:21 | EKG ---
Date Performed: 12/19/2016 Time Performed: 10:30:16 PTAGE: 86 years EKG: ATRIAL FIBRILLATION WITH RAPID VENTRICULAR RESPONSE INDETERMINATE AXIS RIGHT BUNDLE BRANCH BLOCK ABNORMAL ECG PREVIOUS TRACING : 11/30/2016 08.04 Compared to prior tracing no significant change DOCTOR: Raúl Correa Interpretating Date/Time 12/20/2016 16:19:21
--- NOTE | 2016-12-20 16:21 | EKG ---
Date Performed: 12/19/2016 Time Performed: 17:05:41 PTAGE: 86 years EKG: ATRIAL FIBRILLATION WITH RAPID VENTRICULAR RESPONSE WITH ABERRANT CONDUCTION OR VENTRICULAR PREMATURE COMPLEXES INDETERMINATE AXIS RIGHT BUNDLE BRANCH BLOCK ABNORMAL ECG PREVIOUS TRACING : 12/19/2016 10.30 Compared to prior tracing no significant change DOCTOR: Raúl Correa Interpretating Date/Time 12/20/2016 16:19:32
--- NOTE | 2016-12-20 16:22 | EKG ---
Date Performed: 12/19/2016 Time Performed: 22:21:41 PTAGE: 86 years EKG: ATRIAL FIBRILLATION WITH RAPID VENTRICULAR RESPONSE WITH ABERRANT CONDUCTION OR VENTRICULAR PREMATURE COMPLEXES RIGHT BUNDLE BRANCH BLOCK ABNORMAL ECG PREVIOUS TRACING : 12/19/2016 17.05 Compared to prior tracing no significant change DOCTOR: Raúl Correa Interpretating Date/Time 12/20/2016 16:19:43
[2016-12-20] MEDS: ALPRAZolam 0.25 MG TAB PO PRN (19:47)
[2016-12-21 01:05] VITALS: BP 101/87; PULSE 100; RESP 14; TEMP 98; O2SAT 95
[2016-12-21 05:08] VITALS: BP 121/90; PULSE 96; RESP 16; TEMP 98; O2SAT 97
[2016-12-21] MEDS: HEPARIN SODIUM - SQ 10,000 UNITS/ML VIAL SQ SCH (05:35)
[2016-12-21] MEDS: ALPRAZolam 0.25 MG TAB PO PRN (05:35)
[2016-12-21 08:00] VITALS: BP 157/95; PULSE 91; PULSE 93; RESP 20; TEMP 98.9; O2SAT 95
[2016-12-21 08:51] VITALS: O2SAT 96
[2016-12-21] MEDS: SODIUM CHLORIDE 0.9% FLUSH 10 ML FLUSH IV FLUSH SCH (09:52)
[2016-12-21] MEDS: DILTIAZEM-CD 240 MG CAP ER PO SCH (09:52)
[2016-12-21] MEDS: LISINOPRIL 20 MG TAB PO SCH (09:53)
[2016-12-21] MEDS: METOPROLOL TARTRATE 25 MG TAB PO SCH (09:53)
[2016-12-21] MEDS: POTASSIUM CHLORIDE 20 MEQ CONTROLLED RELEASE TAB PO SCH (09:53)
[2016-12-21] MEDS: FUROSEMIDE 40 MG/4 ML VIAL IVP SCH (09:53)
[2016-12-21] MEDS: HYDROCHLOROTHIAZIDE 12.5 MG CAP PO SCH (09:53)
--- NOTE | 2016-12-21 10:38 | HHI.DCPOC ---
Discharge Care Plan Diagnosis: (1) Metastatic cancer to liver (2) Shortness of breath (3) aortic stenosis and mitral regurgitation on echocardiogram 2017 (4) Acute on chronic systolic congestive heart failure (5) Lower extremity weakness Goals to Promote Your Health * To prevent worsening of your condition and complications * To maintain your health at the optimal level Directions to Meet Your Goals Take your medications as prescribed Follow your dietary instruction Follow activity as directed Keep your appointments as scheduled Take your immunizations and boosters as scheduled If your symptoms worsen call your PCP, if no PCP go to Urgent Care Center or Emergency Room Smoking is Dangerous to Your Health. Avoid second hand smoke Call the 24-hour hour crisis hotline for domestic abuse at Jose Peter MD Dec 21, 2016 10:38
--- NOTE | 2016-12-21 10:45 | HHI.DS ---
Discharge Summary Admission Date Dec 20, 2016 at 16:24 Discharge Date: Dec 21, 2016 Admitting Diagnosis Generalized weakness (1) Lower extremity weakness ICD Code: R29.898 Diagnosis: Principal (2) Acute on chronic systolic congestive heart failure ICD Code: I50.23 Diagnosis: Principal (3) Atrial fibrillation ICD Code: I48.91 Diagnosis: Principal (4) COPD (chronic obstructive pulmonary disease) ICD Code: J44.9 Diagnosis: Principal (5) Anxiety ICD Code: F41.9 Diagnosis: Principal (6) Metastatic cancer to liver ICD Code: C78.7 Diagnosis: Principal (7) Bilateral lower extremity edema ICD Code: R60.0 Diagnosis: Principal Procedures none Brief History - From Admission Written by Sujit Yen, acting as scribe for Dr. Muñiz on 12/19/16 at 16:53. 86 year-old male with rather complex medical history hypertension, systolic congestive heart failure, cardiomyopathy, severe aortic stenosis, atrial fibrillation, history of colon cancer, metastatic liver cancer undergoing radiation therapy, chronic obstructive pulmonary disease, anxiety, depression who presented to the hospital because of lower extremity weakness, lower extremity edema, shortness of breath and dyspnea. Patient states that his symptoms have been progressing over the last week since his last episode of radiation therapy. Patient states that he has recently been diagnosed with liver cancer and he has been undergoing radiation treatment. Patient states that his last dose was on Friday, since then he has been, very ill with fatigue , weakness, shortness of breath, dyspnea on exertion. The patient states that he has been having progressive dyspnea on exertion to where he used to be a little walk 3540 feet with his walker, however he cannot walk at all at this time. He states that this morning when he tried to get up out of bed he could not even move his legs. Since being here the hospital he is actually able to move his legs in bed now. Is able to bend his knees and lift them off the bed. He indicates that he has had increased swelling since his last dose of chemotherapy 6 days ago. He does indicate that he drinks 2 cups of coffee a day , Coumadin glass of orange juice a day, one glass of tomato juice a day and up to 5 glasses of water daily. He does not monitor his weights on a daily basis. Patient has had previous admissions to the hospital for COPD and CHF evaluations. He denies any fever, chills, runny nose, sore throat, cough, congestion, abdominal pain, nausea, vomiting, diarrhea, constipation. He indicates that he has been to his primary medical doctor's office Dr. Martin recently and was treated for anxiety with Xanax. Patient was evaluated in emergency department and was recommended observation the hospital. CBC/BMP: 12/19/16 1040 12/19/16 1040 Significant Findings Laboratory Tests Test 12/19/16 12/19/16 12/19/16 10:40 18:45 22:30 Hemoglobin 12.4 GM/DL (13.0-17.0) Mean Corpuscular Volume 71.9 FL (80.0-100.0) Mean Corpuscular Hemoglobin 23.0 PG (27.0-34.0) Mean Corpuscular Hemoglobin 31.9 % Concent (32.0-36.0) Red Cell Distribution Width 17.9 % (11.6-17.2) Mean Platelet Volume 6.6 FL (7.0-11.0) Neutrophils (%) (Auto) 89.7 % (16.0-70.0) Lymphocytes (%) (Auto) 3.9 % (9.0-44.0) Lymphocytes # (Auto) 0.3 TH/MM3 (1.0-4.8) Carbon Dioxide Level 32.5 MEQ/L (21.0-32.0) Random Glucose 135 MG/DL (74-106) Troponin I LESS THAN 0.02 LESS THAN 0.02 LESS THAN 0.02 NG/ML NG/ML NG/ML (0.02-0.05) (0.02-0.05) (0.02-0.05) B-Type Natriuretic Peptide 269 PG/ML (0-100) Imaging Last Impressions Chest X-Ray 12/19/16 1015 Signed Impressions: Service Date/Time: November 10:35 - CONCLUSION: 1. Underinflated examination with atelectasis at the lung bases. Otherwise, no acute pulmonary abnormality is seen. 2. Stable mass at the apex of the left hemithorax. Claudio Donohue MD Lower Extremity Ultrasound 12/19/16 0000 Signed Impressions: Service Date/Time: November 15:10 - CONCLUSION: No DVT is identified within either lower extremity. Claudio Donohue MD PE at Discharge GENERAL: Well-developed, well-nourished, in no acute distress. alert and orientated HEENT: Head is normocephalic without any lesions or masses noted. Facial features are symmetric. Eyes: Pupils equal round reactive to light. Extraocular muscles are intact. Conjunctivae were clear. Oropharyngeal: Pharynx without any erythema edema. Tongue is midline without deviation. Buccal mucosa is moist without any masses or lesions NECK: Supple without any masses. Trachea midline no deviation. No JVD, no bruits are appreciated CARDIAC: Irregular rhythm, irregular rate. S1/S2 are heard. No murmurs gallops or rubs. LUNGS: Clear to auscultation bilaterally. No wheeze, rhonchi or rales. No use of accessory muscles on inspiration or expiration. ABDOMEN: Soft, nontender. Nondistended. Bowel sounds heard in all 4 quadrants. No organomegaly or masses. Negative rebound, negative guarding EXTREMITIES: 2+ pitting edema noted bilateral lower extremities, pulses are equal bilaterally. No cyanosis or clubbing NEUROLOGY: Mood and affect appear appropriate. Cranial nerves II through XII grossly intact. Muscle strength 3/5 in upper and lower extremities bilaterally. Deep tendon reflexes are 1+ in upper and lower extremities bilaterally. Patient is moving his lower extremities without any problem. He is able to hold him off the bed. Strength is equal bilaterally Hospital Course (1) Lower extremity weakness The patient was admitted to the medical floor. Etiology unclear, possibly secondary to his CHF exacerbation, physical deconditioning and possible metastatic cancer. MRI of the brain and lumbar spine ordered however patient refused to have it done. Physical therapy consulted. (2) Acute on chronic systolic congestive heart failure Recent echocardiogram on 09/08/16 showed an ejection fraction of 45-50%. To severe aortic valve stenosis, mitral valve regurgitation with systolic function mildly reduced. Continue medical management with CHARANJIT inhibitor some beta blockers. Treated with frusemide 40 mg IV twice a day. Will DC home on hospice with oral Lasix. (3) bilateral Lower extremity edema Due to CHF exacerbation as mentioned above. Treated with diuretics, continue upon discharge DVT ruled out with bilateral lower extremity Doppler ultrasounds Bilateral lower extremity edema almost resolved prior to discharge. (4) Atrial fibrillation EKG obtained on 12/19 at 2247 hrs. shows atrial fibrillation with a ventricular rate of 10 5 bpm, no ST-T changes. NOt on anticoagulation because a s per records of last admission on 12/01 patient has refused to be on anticoagulation. (5) COPD (chronic obstructive pulmonary disease) Remained stable during hospitalization. Patient received DuoNeb nebulizer treatments. (6) Anxiety Continue Xanax. Patient seems to be mildly anxious. (7) Metastatic cancer to liver Patient undergoing radiation therapy. Patient requested palliative care consultation. Patient will be discharged home on hospice. DVT prophylaxis: SCDs, I will add heparin subcutaneous as the patient is not very mobile. Pt Condition on Discharge: Stable Discharge Disposition: Hospice/ Home Discharge Time: <= 30 minutes Discharge Instructions DIET: Follow Instructions for: Heart Healthy Diet Activities you can perform: Regular-No Restrictions Activities to Avoid: Prolonged Standing, Strenuous Activity New Medications: Furosemide (Furosemide) 40 Mg Tab 40 MG PO DAILY Shortness of Breath #30 Ref 0 TAB Continued Medications: Albuterol 8.5 GM Inh (Proair Hfa 8.5 GM Inh) 90 Mcg/Act Aer 1 PUFF INH Q4H 108 mcg/actuation PRN SHORTNESS OF BREATH #1 Ref 0 INHALER Alprazolam (Alprazolam) 0.25 Mg Tab 0.25 MG PO BID PRN ANXIETY Ref 0 TAB Alprazolam (Alprazolam) 0.5 Mg Tab 0.5 MG PO HS PRN ANXIETY #31 Ref 3 TAB Diltiazem ER 24 HR (Taztia Xt) 240 Mg Caper 240 MG PO DAILY #90 Ref 1 CAP Fluticasone Nasal [place] (Fluticasone Nasal [place]) 50 Mcg/Act Naspr 50 MCG EACH NARE BID 50 mcg/spray Allergy Management #1 Ref 0 BOTTLE Ipratropium-Albuterol Neb (Duoneb) 0.5-2.5 Mg/3 Ml Neb 1 NEBULE INH BID Breathing Treatment #30 Ref 0 NEBULE Lisinopril-Hctz (Lisinopril-Hctz) 20-12.5 Mg Tab 1 TAB PO DAILY Blood Pressure Management #30 Ref 0 TAB Metoprolol Tartrate (Metoprolol Tartrate) 75 Mg Tab 75 MG PO BID a-fib #60 Ref 0 TAB Discontinued Medications: Furosemide (Lasix) 20 Mg Tab 20 MG PO DAILY chf #30 Ref 3 TAB Jose Peter MD Dec 21, 2016 10:45
[2016-12-21] MEDS ORDERED: FURO40TA PO (10:47)
[2016-12-21 12:00] VITALS: BP 151/91; PULSE 88; RESP 20; TEMP 97.2; O2SAT 95
--- NOTE | 2016-12-22 08:30 | RF ---
cc: SHUBHAM FORTUNE MD F o l l o w u p R e p o r t DATE OF SERVICE: 12/20/2016 AGE: 86 SEX: M Mr. Ibrahim is a 86-year-old who recently completed external beam radiation therapy liver metastasis, 30 Gy, finished Friday. Saw him today, will see him as an outpatient next week ___ 50% approximately [id number] encounter involved potential prognosis, potential treatment related side effects, discussed follow-up as well. Appreciate palliative care involvement. Will contact him next week. Shubham Fortune MD Radiation Oncologist GARY/SAE /7:21 PM /8:21 AM
== END 2016-12-21 14:00 | disposition hospice, home (50) | DRG 292 ==
LOC: PHED 09:33 → PHEDA 12:47 → PH3A 13:32 → OBSVTOIN 12-20 16:24
PROVIDERS: ADMIT Hospitalist; ATTEND Hospitalist
DX: I50.23 Acute on chronic systolic (congestive) heart failure (principal); I42.9 Cardiomyopathy, unspecified; J96.10 Chronic respiratory failure, unspecified whether with hypoxia or hypercapnia; C78.7 Secondary malignant neoplasm of liver and intrahepatic bile duct; Z99.81 Dependence on supplemental oxygen; I48.2 Chronic atrial fibrillation; I08.0 Rheumatic disorders of both mitral and aortic valves; R53.1 Weakness; J44.9 Chronic obstructive pulmonary disease, unspecified; R60.0 Localized edema; E78.5 Hyperlipidemia, unspecified; I11.0 Hypertensive heart disease with heart failure; F41.9 Anxiety disorder, unspecified; Z51.5 Encounter for palliative care; Z85.038 Personal history of other malignant neoplasm of large intestine; Z87.891 Personal history of nicotine dependence; Z85.828 Personal history of other malignant neoplasm of skin
CPT/HCPCS: 71010; 80048; 81001; 82550; 82552; 83880; 84484; 85025; 85610; 85730; 93005; 93970; 94150; 94640; 94664; G8987-GP; G8988-GP; J1644; J1940; J2930